=== PATIENT | female | born 1990 | race Caucasian/White ===

== ENCOUNTER → 2018-11-08 10:00 | Outpatient (CLI) | payer OTHER, SELFPAY | PROVIDERS: Visit Provider Physician Assistant | DX: J02.9 Acute pharyngitis, unspecified (principal) | CPT/HCPCS: 87070 ==

== ENCOUNTER → 2019-01-19 16:40 | Outpatient (REF) | payer OTHER, SELFPAY | LOC: LAB 16:40 | PROVIDERS: Visit Provider Internal Medicine | DX: J02.9 Acute pharyngitis, unspecified (principal) | CPT/HCPCS: 87070 ==

== ENCOUNTER 2019-04-02 08:33 | Day surgery (SDC) | payer OTHER, SELFPAY ==
[2019-03-24 12:52] VITALS: BMI 26.1
[2019-04-02] VITALS (9 sets, daily range): BP systolic 102–125; BP diastolic 73–82; PULSE 62–116; RESP 10–23; TEMP 36.8–37.2; O2SAT 94–100; BMI 26.1
[2019-04-02] MEDS: LACTATED RINGERS 1,000 ML 100 ML IV ×2 (09:07→10:40)
--- NOTE | 2019-04-02 09:50 | PM.HP.1 ---
History of Present Illness Date Patient Seen: 04/02/19 Time Patient Seen: 09:52 Chief complaint: [id number] Narrative: Patient is a 28-year-old who presents for a diagnostic laparoscopy secondary to postcoital bleeding, dyspareunia, and menorrhagia There is also possibility of fulguration of endometriosis Patient History Medical History (Updated 03/24/19 @ 12:59 by Tamanna Gonzalez RN) Dyspareunia (Acute) Migraines (Acute) Surgical History (Updated 03/24/19 @ 12:57 by Tamanna Gonzalez RN) History of third molar tooth extraction (~2005) Status post tonsillectomy and adenoidectomy (~2006) Social History household members: spouse Smoking Status: Never smoker alcohol intake: current Family & Social History Social History: household members spouse Prior Living Arrangements House Safety & Behavioral: Feels Safe in Current Yes Environment Been Physically Hurt or No Threatened By a Person Suicidal Ideation Description None Suicide Plan Description No Plan Tobacco & Substance use: Smoking Status Never smoker alcohol intake current alcohol intake frequency a few times a month Substance Use Type does not use Meds Home Medications Medication Instructions Recorded Confirmed Type norethindrone acetate-ethinyl 1 tab PO DAILY 03/10/19 04/02/19 History estradiol 1.5 mg-30 mcg tablet Allergies Allergy/AdvReac Type Severity Reaction Status Date / Time hydromorphone [From Dilaudid] Allergy Severe Itching, Verified 04/02/19 09:14 LOC, nausea codeine Allergy Unknown Pt unsure Verified 04/02/19 09:14 if true allergy hydrocodone Allergy Unknown Pt unsure Verified 04/02/19 09:14 of reaction Exam Vital Signs (past 8 hours): - 04/02/19 09:03 Temperature 99.0 F Pulse Rate 84 Respiratory Rate 16 Blood Pressure 119/79 Pulse Oximetry 100 Oxygen Delivery Method Room Air Narrative Exam Narrative: HEENT: No thyromegaly, no anterior cervical or supraclavicular lymphadenopathy. Lungs:Clear to auscultation bilaterally, no wheezes. Cardiovascular: Regular rate and rhythm, no murmurs, rubs, or gallops. Abdomen: No scars. No hepatosplenomegaly. No masses palpable. External genitalia: Normal Vagina: Normal Cervix: Normal Bimanual exam: 6 Week size uterus. Mobile. Rectal: No masses. Assessment & Plan Assessment & Plan narrative: Assessment: Patient is a 28-year-old with postcoital bleeding, menorrhagia, and dyspareunia Plan: Diagnostic laparoscopy with possible fulguration of endometriosis The risks, benefits, and alternatives to the procedure were explained to the patient. The risks including bleeding, infection, injury to the bowel, bladder, or ureters. She understands these risks and agrees to proceed. A full par Q was held and consent form was signed. Time Spent With Patient Time with patient: less than 15 minutes
--- NOTE | 2019-04-02 09:54 | PM.PREOP ---
Pre-operative Note Interval Note History & Physical reviewed/Exam performed by Physician: Yes Changes to H&P: No
[2019-04-02] MEDS: SCOPOLAMINE 1 PATCH TOP (09:57)
[2019-04-02] MEDS: APREPITANT 40 MG CAPSULE PO (09:57)
[2019-04-02] MEDS: ACETAMINOPHEN IV 1,000 MG/100 ML VIAL 400 MG IV (10:33)
--- NOTE | 2019-04-02 10:33 | SUR.OPER ---
Lithotomy on padded OR bed, head on pillow, arms secured on padded arm boards at <90 degrees abduction. Legs secured in padded yellow fins stirrups.
[2019-04-02] MEDS: BUPIVACAINE 0.5% W/ EPI (PF) VIAL 30 ML INJ (10:39)
[2019-04-02] MEDS: MIDAZOLAM 2 MG/2 ML VIAL 1 MG IV (11:23)
--- NOTE | 2019-04-02 11:25 | SUR.PHASEI ---
Pt tearful and sobbing as she awoke from anesthesia. Pt was very anxious and difficult to console. MD Smith at bedside; 1 mg IV versed given per MD Smith's order. Bedside report given to LAQUITA Zamudio. Lizz to assume care of pt at this time.
[2019-04-02] MEDS: fentaNYL 100 MCG/2 ML INJ 50 MCG IV ×2 (11:33→12:00)
--- NOTE | 2019-04-02 11:37 | SUR.PHASEI ---
1125 Assumed patient care, patient crying, Dr. Smith talking with her, has medicated for anxiety and nausea. Abdominal dressings and per-pad CDI, Pt oriented 1133 Desired pain med: given, doesn't give number for pain. States that she is feeling calmer; intermittent tears.
[2019-04-02] MEDS: METOCLOPRAMIDE 10 MG/2 ML INJ IV (11:51)
--- NOTE | 2019-04-02 11:59 | SUR.PHASEI ---
Was dozing, states that her abdomen hurts, desires Rx, no number given.
--- NOTE | 2019-04-02 12:03 | SUR.PHASEI ---
Medicated for pain, drowsy, doesn't give number. States that nausea isn't gone but is resolving. dr. Smith here, checked on patient. resp unlabored, was put on O2 after first fentanyl dose at 3Lnp for desat into the 80s; now at 1Lnp and maintaining. Skin warm and dry, dozing, no longer crying.
[2019-04-02] MEDS: OXYCODONE/ACETAMINOPHEN 5/325 TABLET 1 TAB PO (12:20)
--- NOTE | 2019-04-02 12:23 | SUR.PHASEI ---
patient calm, nausea relieved, Rx given for PO rx following applesause. Preparing to transfer to [facility].
--- NOTE | 2019-04-12 06:20 | PM.GYNOP.1 ---
Operative Date/Time/Diagnoses Date of procedure: 04/02/19 Time of procedure: 10:45 Pre-op diagnosis: Postcoital bleeding Dyspareunia Menorrhagia Post-op diagnosis: same Procedure: Procedures Operation Date: 04/02/19 09:45 Actual Procedures Side Surgeon coby Elliott Laparoscopy WITH fulguration of LEFT PARAOVARIAN CYST Left Lisseth Tian MD Indications: Postcoital bleeding Menorrhagia Dyspareunia Surgeon: Lisseth Tian Anesthesia Type: General Operative Notes Findings: Normal uterus Normal ovaries 1.5 cm left para tubal cyst Normal liver and gallbladder Normal appendix Normal right tube Closure Type: primary Specimen(s): none Estimated blood loss (mL): 5 Blood products transfused: none Procedure in detail: After informed consent was obtained, the patient was taken to the operating room where she was placed in the dorsal supine position. After adequate general endotracheal anesthesia was achieved, she was placed in the dorsal lithotomy position, and prepped and draped in the usual sterile fashion. A time-out was performed. A bivalve speculum was placed into the vagina and the anterior lip of the cervix grasped with a single-tooth tenaculum. The cervical os was sequentially dilated until the Zumi uterine manipulator could pass easily into the endometrial cavity. The single-tooth tenaculum was removed from the anterior lip of the cervix. The bivalve speculum was removed from the vagina. Attention was then turned to the abdomen where 6 cc of 0.5% Marcaine with epinephrine were injected in the umbilical fold. A 5 mm incision was made. The Veress needle was placed into the peritoneal cavity, and its placement confirmed by aspiration and drop test. The abdominal cavity was insufflated with 3.1 L of CO2. The Veress needle was removed, and a 5 mm trocar was placed without difficulty. A 2nd incision was made above the pubic symphysis after 6 cc of 0.5% Marcaine with epinephrine were injected. A 5 mm incision was made. A 2nd 5 mm trocar was placed under direct visualization. Bilateral ovarian fossa were examined and there was no evidence of endometriosis. The anterior and posterior cul-de-sacs were without endometriosis. The ovaries were normal. The liver gallbladder and appendix were normal. The right tube was normal. On the left tube hanging from a pedicle, was a 1.5 cm paratubal cyst. This was cauterized with the PlasmaKinetic and removed. No evidence of endometriosis anywhere in the pelvis or abdomen. The instruments were removed from the abdomen. The CO2 was allowed to escape. The incisions were repaired with 4 0 undyed Vicryl in a subcuticular fashion. Steri-Strips, 2 x 2, and op site were placed. The Zumi uterine manipulator was removed from the uterus. Sponge, lap, and instrument counts were correct x2. The patient tolerated the procedure well, and was taken to PACU in stable condition. Complications: none Post-operative Condition: stable Disposition: PACU Plan for aftercare: Home after recovery
== END 2019-04-02 13:08 | disposition home or self-care (01) ==
PROVIDERS: PCP Internal Medicine; Visit Provider Obstetrics & Gynecology
PROC: (CPT 49320; principal; 2019-04-02 09:45)
DX: N92.0 Excessive and frequent menstruation with regular cycle (principal); N94.10 Unspecified dyspareunia; N93.0 Postcoital and contact bleeding; N83.8 Other noninflammatory disorders of ovary, fallopian tube and broad ligament
CPT/HCPCS: 58662; J0131; J1100; J2250; J2405; J2704; J2765; J3010; J8501

== ENCOUNTER → 2019-06-24 12:07 | Outpatient (CLI) | payer OTHER, SELFPAY ==
--- NOTE | 2019-06-24 | DI.RAD.S_ITS ---
PROCEDURE: XR KNEE RT 3V INDICATIONS: right knee pain TECHNIQUE: 3 views of the knee were acquired. COMPARISON: [facility], , KNEE 3V RIGHT, 07/29/2008, 12:56. FINDINGS: Bones: No fractures or dislocations. No suspicious bony lesions. The femorotibial joint spaces are relatively well-preserved. On the sunrise view, there is mild to moderate patellofemoral joint space narrowing seen. Osteophyte formation can be seen along the margins of the patella. Soft tissues: No significant joint effusion. No suspicious soft tissue calcifications. IMPRESSION: [id number] patellofemoral joint space narrowing is seen. If it would be helpful for clinical management decision making, please consider a dedicated knee MRI for further evaluation (assuming that there is no contraindication). Dictated by: Michael Carrizales M.D. on 06/24/2019 at 12:56 Approved by: Michael Carrizales M.D. on 06/24/2019 at 12:57
== END ==
PROVIDERS: PCP Student in an Organized Health Care Education/Training Program; Visit Provider Student in an Organized Health Care Education/Training Program
DX: M25.561 Pain in right knee (principal)
CPT/HCPCS: 73562

== ENCOUNTER → 2019-09-21 16:50 | Outpatient (CLI) | payer OTHER, SELFPAY | PROVIDERS: PCP Student in an Organized Health Care Education/Training Program; Visit Provider Student in an Organized Health Care Education/Training Program | DX: S89.91XD Unspecified injury of right lower leg, subsequent encounter (principal); M25.561 Pain in right knee; Z53.9 Procedure and treatment not carried out, unspecified reason ==

== ENCOUNTER → 2019-09-27 10:47 | Outpatient (CLI) | payer OTHER, SELFPAY ==
--- NOTE | 2019-09-27 | DI.US.S_ITS ---
PROCEDURE: US PELVIC COMPLETE INDICATIONS: RIGHT LOWER QUADRANT PAIN TECHNIQUE: Real-time scanning was performed of the pelvic organs, with image documentation. Additional endovaginal scanning was necessary due to incomplete visualization of the adnexal and endometrial structures by transabdominal scanning. COMPARISON: [facility], US, US PELVIC COMPLETE, 03/10/2019, 8:48. FINDINGS: Transabdominal scanning: Limited scanning through the kidneys shows no hydronephrosis. No pathologic free abdominal or pelvic fluid. Anteverted anteflexed uterus. Right inguinal region was scanned which corresponds to patient's area of pain. There is a prominent lymph node with a slightly thickened cortex. The node measures 2.3 cm and the cortex is 4 mm thick. Normal morphology is otherwise maintained including a fatty hilum. The appendix is not visible. Endovaginal scanning: Uterus: Uterus is normal in size at 8.8 x 3.8 x 4.5 cm. The endometrium measures 1.3 mm in combined thickness. Punctate coarse focus of echogenicity in the fundal endometrium measuring 1.8 mm. Ovaries: Right ovary measures 3.0 x 1.4 x 1.6 cm for a volume of 3.5 cc. The left ovary measures 2.8 x 1.6 x 1.7 cm for a volume of 4.0 cc. Normal number of small follicles identified. No suspicious adnexal masses. No free pelvic fluid. IMPRESSION: 1. Right inguinal adenitis corresponding to the patient's pelvic pain. Correlate with any distal extremity findings. 2. Normal uterus and ovaries. Dictated by: Rachel Montoya M.D. on 09/27/2019 at 15:06 Approved by: Rachel Montoya M.D. on 09/27/2019 at 15:10
== END ==
PROVIDERS: PCP Student in an Organized Health Care Education/Training Program; Visit Provider Student in an Organized Health Care Education/Training Program
DX: R10.31 Right lower quadrant pain (principal); R10.2 Pelvic and perineal pain; I88.9 Nonspecific lymphadenitis, unspecified
CPT/HCPCS: 76830; 76856

== ENCOUNTER → 2019-11-05 17:45 | Outpatient (CLI) | payer OTHER, SELFPAY ==
--- NOTE | 2019-11-05 17:46 | DI.MRI.S_ITS ---
PROCEDURE: MR KNEE RT WO CON INDICATIONS: PAIN IN RIGHT KNEE TECHNIQUE: Noncontrast sagittal PD fast spin echo and T2 fast spin echo with fat saturation, sagittal 3-D FLASH with fat saturation; coronal T1 spin echo and PD fast spin echo with fat saturation, and axial PD fast spin echo with fat saturation through the knee. COMPARISON: None. FINDINGS: Image quality: Excellent. Menisci: The medial and lateral menisci demonstrate normal morphology and internal signal. The meniscal root ligaments appear intact. Cruciate ligaments: There is mildly thickened proximal anterior cruciate ligament near its femoral insertion with small amount of intrasubstance fluid signal suggestive of sprain/low-grade partial-thickness tear involving proximal ACL. PCL is intact. Medial structures: The medial collateral ligament appears intact. The posterior oblique ligament, semimembranosus tendon insertions, oblique popliteal ligament, and meniscocapsular junction appear intact. Visualized portions of the pes anserinus tendons appear normal. No abnormal bursal fluid. Lateral structures: The lateral collateral ligament, long and short heads of the biceps femoris tendon appear intact. The popliteus tendon appears normal; the popliteofibular ligament appears intact. The posterosuperior and anteroinferior popliteomeniscal fascicles appear intact. The arcuate and fabellofibular ligaments appear intact, on either side of the lateral inferior geniculate artery. Iliotibial band appears normal. Anterior structures: The quadriceps and patellar tendons appear intact. Patellar alignment is normal. No femoral trochlear dysplasia or ventral trochlear prominence. No edema in the infrapatellar fat pad. Bones and cartilage: No bone marrow contusions or fractures. The cartilage of the medial and lateral femorotibial compartments, as well as the patellofemoral compartment, appears normal in thickness. Joint space: There is physiologic knee joint fluid. No Gaming's cyst. Normal appearing synovial plicae are incidentally noted. IMPRESSION: 1. No marrow edema. No fracture or dislocation. No significant joint effusion. 2. No evidence of focal meniscal tear. 3. Finding may represent very low grade sprain/partial thickness tear involving anterior cruciate ligament near its femoral insertion. No full-thickness ACL rupture. PCL is intact. Dictated by: Jose Nielson M.D. on 11/08/2019 at 10:00 Approved by: Jose Nielson M.D. on 11/08/2019 at 10:07
== END ==
PROVIDERS: PCP Student in an Organized Health Care Education/Training Program; Referring Provider Student in an Organized Health Care Education/Training Program; Visit Provider Student in an Organized Health Care Education/Training Program
DX: M25.561 Pain in right knee (principal)
CPT/HCPCS: 73721

== ENCOUNTER 2019-11-18 16:45 | Outpatient (RCR) | payer OTHER, SELFPAY ==
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
--- NOTE | 2019-11-18 19:14 | PT.OPPOC ---
Physical, Occupational & Speech Therapy At [facility] Current Diagnoses Unspecified injury of right lower leg, subsequent encounter (11/18/19) Visit Care Team Role Provider Type Susana Bejarano MD Attending Provider Physician Primary Care Provider Specialty: Family Practice Address: [address] [place] [address] [place], [address] Email: [email or web address] Plan Of Care PT-OP-T Assessment and Plan Start: 09/22/19 15:57 Freq: Status: Active Protocol: Document 11/18/19 16:50 HH (Rec: 11/18/19 19:12 HH [id number]) Physical Therapy Assessment Goals Anterior reach test Impairment Pt currently demonstrates inc' d knee strategy with SLS Short Term Goal (STG) Pt will demonstrate <2 asymmetry during ant reach test to reduce risk of reinjury STG Duration 4 weeks Press Tool Maker Goal (LTG) Pt will demonstrate <1 asymmetry without dynamic knee valgus during ant reach test to reduce risk of reinjury LTG Duration 8 weeks Walking Impairment Pt no longer able to walk/jog 7 miles/day for exercise Short Term Goal (STG) Pt will be able to ambulate >1 mile at brisk pace without inc'd knee pain STG Duration 4 weeks Penitentiary Goal (LTG) Pt will be able to ambulate >3 miles at brisk pace without inc'd knee pain LTG Duration 8 weeks Standing Impairment Pt reports pain/weakness when standing at work Short Term Goal (STG) Pt will be able to stand >30 min without inc'd knee pain and sense of instability STG Duration 4 weeks Penitentiary Goal (LTG) Pt will be able to stand >1 hr without inc'd knee pain and sense of instability LTG Duration 8 weeks LEFS Impairment Pt scored 36/80 on LEFS Short Term Goal (STG) Pt will score >45/80 on LEFS to reflect improved tolerance for functional activities STG Duration 4 weeks Press Tool Maker Goal (LTG) Pt will score >55/80 on LEFS to reflect improved tolerance for functional activities LTG Duration 8 weeks Progress Towards Goals Progress Towards Goals Slow Progress due to Attendance Issues,Slow Progress - Other Progress Comments see below Assessment Summary Assessment Pt has not progressed much since initial evaluation due to scheduling issues. Pt had a MRI on 11/05/19 showed 1. No marrow edema. No fracture or dislocation. No significant joint effusion. 2. No evidence of focal meniscal tear. 3. Finding may represent very low grade sprain/partial thickness tear involving anterior cruciate ligament near its femoral insertion. No full- thickness ACL rupture. PCL is intact. Reassess ACL integrity today and showed -ve findings. Spent time to dis with pt regarding pain science and her unremarkable MRI result. She does have tissue sensitivity to touch/ pressure to quad and patella tendon, along with difficulty relaxing muscular tissues around her knee joint. However, her quad /hip adductors tenderness reduced after STM with rolling pin, and patellar tendon pain as well. Introduce pt to non resistive biking to expose active knee flexion and extension. Pt will cont benefit from skilled therapy for graded exposure in order to return to her daily sports activities such as walking / jogging 7 miles a day and work without knee pain. Physical Therapy Plan Frequency and Duration Frequency of Treatment 1x/Week Duration of Treatment 8 weeks Plan of Care Start Date 11/18/19 Plan of Care End Date 01/17/20 Therapeutic Interventions Therapeutic Interventions Balance Training,Gait Training ,Home Exercise Program,Joint Mobilizations,Manual Therapy, Neuromuscular Re-education, Patient/Caregiver Education, Self-Care/Home Management, Sensory Integration,Soft Tissue Mobilization,Taping, Therapeutic Activities, Therapeutic Exercises Modalities Cold Pack/Ice Massage,Electric Stimulation,Hot Packs, Infrared Therapy,Iontophoresis ,Ultrasound Next Visit Focus/Plan Next Note Type Treatment Note Next Visit Plan assess tolerance for HEP ( rolling pin, biking) MT for knee effusion LE strengthening (gravity reduced) SL balance/strengthening Treadmill ambulation Plan of Care Dates Plan of Care Start Date 11/18/19 Plan of Care End Date 01/17/20 Electronically Signed by: Curtis Mcdowell, PT 11/18/19 2840 Please Sign and Return: I have reviewed this Plan of Care and certify that the skilled therapy services above are required to meet the patient?s needs. Physician Signature Date Printed Name and Credentials Clinical Instructor Signature Printed Name and Credentials
--- NOTE | 2020-04-20 14:18 | PT.OPDS ---
Current Diagnoses Unspecified injury of right lower leg, subsequent encounter (11/18/19) Visit Care Team Role Provider Type Susana Bejarano MD Attending Provider Physician Primary Care Provider Specialty: Family Practice Address: [address] [place] [address], [place], [place], [facility] Email: [email or web address] Visit Number Visit Number 01/15 Discharge Summary PT-OP-T Assessment and Plan Start: 09/22/19 15:57 Freq: Status: Active Protocol: Document 04/20/20 14:16 (Rec: 04/20/20 14:17 [email or web address]) Physical Therapy Plan Discharge Physical Therapy Discharge Reasons No Longer Attending PT Discharge Comments d/c from therapy today since pt is being seen at ortho PT clinic as suggested,
== END 2020-04-21 12:58 ==
LOC: PHYS 16:45
PROVIDERS: PCP Student in an Organized Health Care Education/Training Program; Visit Provider Student in an Organized Health Care Education/Training Program
DX: S89.91XD Unspecified injury of right lower leg, subsequent encounter (principal)
CPT/HCPCS: 97110; 97140; 97161

== ENCOUNTER → 2019-11-25 13:52 | Outpatient (CLI) | payer OTHER, SELFPAY | PROVIDERS: PCP Student in an Organized Health Care Education/Training Program; Visit Provider Physician Assistant | DX: Z11.3 Encounter for screening for infections with a predominantly sexual mode of transmission (principal) | CPT/HCPCS: 87210 ==

== ENCOUNTER 2020-06-24 19:48 | Emergency (ER) | payer OTHER, SELFPAY ==
[2020-06-24 19:56] VITALS: BP 153/87; PULSE 77; RESP 17; TEMP 36.9; O2SAT 100; BMI 24.9
[2020-06-24 23:24] VITALS: BP 108/59; PULSE 60; RESP 16; O2SAT 96
--- NOTE | 2020-06-25 00:14 | DI.CT.S_ITS ---
PROCEDURE: CT HEAD/BRAIN WO CON INDICATIONS: head injury TECHNIQUE: Noncontrast 4.5 mm thick angled axial sections acquired from the foramen magnum to the vertex, with coronal and sagittal reformats. For radiation dose reduction, the following was used: automated exposure control, adjustment of mA and/or kV according to patient size. COMPARISON: None. FINDINGS: Image quality: Excellent. CSF spaces: Basal cisterns are patent. No extra-axial fluid collections. Ventricles are normal in size and shape. Brain: No midline shift. No intracranial masses or hemorrhage. Garay-white matter interface is normal. Skull and face: Calvarium and visualized facial bones are intact, without suspicious lesions. Sinuses: Visualized sinuses and mastoids are clear. IMPRESSION: No acute intracranial hemorrhage is seen. Normal noncontrast head CT. Note: No significant discrepancy from the preliminary report. Dictated by: Michael Carrizales M.D. on 06/25/2020 at 8:43 Approved by: Michael Carrizales M.D. on 06/25/2020 at 8:44
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
[2020-06-25] MEDS: KETOROLAC 10 MG TABLET PO (00:52)
[2020-06-25] MEDS: ONDANSETRON 4 MG ODT SL (00:53)
[2020-06-25 01:05] VITALS: BP 114/65; PULSE 85; RESP 16; O2SAT 100
== END 2020-06-25 01:05 | disposition home or self-care (01) ==
PROVIDERS: Emergency Provider Emergency Medicine; PCP Student in an Organized Health Care Education/Training Program
DX: S06.0X0A Concussion without loss of consciousness, initial encounter (principal); R11.2 Nausea with vomiting, unspecified; W22.8XXA Striking against or struck by other objects, initial encounter
CPT/HCPCS: 70450; 81025; 99283; 99284

== ENCOUNTER 2020-06-27 09:45 | Outpatient (RCR) | payer OTHER, SELFPAY ==
--- NOTE | 2019-05-27 14:24 | PT.OIE ---
Current Diagnoses Unspecified dyspareunia (05/26/19) Pelvic and perineal pain (05/26/19) Past Medical History (Last Updated 03/24/19 @ 12:59 by Tamanna Gonzalez RN) Dyspareunia (Acute) Migraines (Acute) Past Surgical History (Last Updated 04/12/19 @ 15:26 by Mary Omer MA) Status post laparoscopy (Resolved 04/02/19) History of third molar tooth extraction (~2005) Status post tonsillectomy and adenoidectomy (~2006) Provider Visit Care Team Role Provider Type Susana Bejarano MD Primary Care Provider Non-Staff Specialty: Family Practice Address: [address] [place] [address], [id number] Email: [email or web address] Lisseth Tian MD Attending Provider Physician Specialty: REPORT DEVELOPER Address: [address] [place] [address], [address] Email: [email or web address] Physical Therapy Initial Evaluation PT-OP-A Visit Information Start: 05/26/19 14:41 Freq: Status: Active Protocol: Document 05/26/19 14:41 [facility] (Rec: 05/26/19 15:12 [facility] [email or web address]) Out-Patient Physical Therapy Visit Information Visit Information Visit Type Initial Evaluation Visit Note 28 year old female with pelvic pain, dysparunia, pelvic floor hypertone, pain and bleeding following intercourse Visit Start Time 11:30 Visit Stop Time 12:15 Total Visit Minutes 45 Visit Number 1 Number of CHIEF PILOT Visits 0 Evaluation Information Evaluation Date 05/26/19 PT-OP-B Current Condition Start: 05/26/19 14:41 Freq: Status: Active Protocol: Document 05/26/19 14:41 [facility] (Rec: 05/26/19 15:12 [facility] [email or web address]) Current Condition History of Current Condition Onset Date chronic but worsening Current Complaints pelvic pain and bleeding following intercourse,bleeding with bowel movement History of Current Condition symptoms began when she became sexually active but have worsened with time. Marie reports she was put on the pill when she was 12 as she had such painful periods and painful breasts. She has a hx of ovarian cysts. She does not currently menstruate as she takes the pill straight through her cycle to avoid a painful period. Her pelvic pain has been worsening and she reports a deep internal pain that she describes as centrally located in her pelvic floor. She reports she will bleed heavily following intercourse. She can soak through two tampons in a hour following intercourse. She also reports bleeding following a bowel movements and has hemorrhoids. She has had an exploratory surgery done by Dr. Tian and no endometriosis was found. She has undergone a colonoscopy and this was normal She has a defogram test next week PT-OP-C Subjective Start: 05/26/19 14:41 Freq: Status: Active Protocol: Document 05/26/19 11:30 [facility] (Rec: 05/27/19 14:10 [facility] [email or web address]) Patient Questionnaires Pelvic Pain and Urgency/Frequency Patient Symptom Scale Pelvic Pain Score 19 OP-PT Pain Assessment Pain Assessment Grid Paper Pain Assessment Grid Completed Yes Location pelvic pain Intensity 9 Scale Used Numeric (1 - 10) Description Acute Pressure Sharp Spasm Stabbing Tightness Pain Duration with intercourse, can vary from 4-9 PT-OP-F Manual Assessment Start: 05/26/19 14:41 Freq: Status: Active Protocol: Document 05/26/19 14:41 [facility] (Rec: 05/26/19 15:12 [facility] [email or web address]) Manual Assessments Soft Tissue Assessment Soft Tissue Mobility Assessment tightness left side of the abdominal wall, Marie does not like the sensation of any manual movement of her abdominal wall or fascial movement over the bladder. She reports it has always felt sensitive in her abdomen. There is tightness across her bladder in the suprapubic fascia. Tightness of the levator ani and difficulty relaxing her pelvic floor following a contraction PT-OP-I Pelvic Floor Start: 05/26/19 14:41 Freq: Status: Active Protocol: Document 05/26/19 14:41 [facility] (Rec: 05/26/19 15:12 [facility] [email or web address]) Pelvic Floor Assessment Urine Pelvic Floor Surgery No Urinary Symptoms Urge Sensation Other Urinary Symptoms frequency of voiding and wakes 1-2 times per night Pelvic Clock Pelvic Clock 12-3 Hypertonic Pelvic Clock 3-6 Hypertonic Pelvic Clock 6-9 Hypertonic Pelvic Clock 9-12 Hypertonic Contraction Ability Manual Muscle Testing Left 4 Manual Muscle Testing Right 4 Manual Muscle Testing Anterior 3 Manual Muscle Testing Posterior 4 Muscle Endurance (Seconds) 3 Comments Pelvic Floor Comments very guarded and hypertonic in all parts of the levator ani. She is only able to hold a contraction for a few seconds and it flickers as she tries to hold it. No more than 3 seconds of endurance. There is pain to palpation in all parts of the levator ani with muscle guarding and hypertone PT-OP-J Posture/Palpation/Skin Start: 05/26/19 14:41 Freq: Status: Active Protocol: Document 05/27/19 13:58 [facility] (Rec: 05/27/19 13:59 [facility] [email or web address]) Palpation Assessment Location Two Palpation Location levator ani Palpation Findings Soft Tissue Tightness Muscle Guarding Tenderness One Palpation Location left side of abdominal wall, supra pubic fascia Palpation Findings Soft Tissue Tightness Muscle Guarding Tenderness PT-OP-Q Treatments Start: 05/26/19 14:41 Freq: Status: Active Protocol: Document 05/26/19 14:41 [facility] (Rec: 05/26/19 15:12 [facility] [email or web address]) Self-Care/Home Management Treatment Education Patient Education Home Exercise Program Other Education pt was educated in ILU self massage over her abdomen, she was given a modified squat stretch and we talked about sitting with her sitting bones spread. I also talked to her about being aware if she is guarding and clenching her glutes during the day. PT-OP-T Assessment and Plan Start: 05/26/19 14:41 Freq: Status: Active Protocol: Document 05/26/19 14:41 [facility] (Rec: 05/26/19 15:12 [facility] [email or web address]) Physical Therapy Assessment Rehab Potential Rehabilitation Potential Good Evaluation Complexity Number of Personal Factors/Comorbidities 0 Number of Body Systems Impaired 1-2 Clinical Presentation at Evaluation Stable Impairments Impairments Activity Tolerance Pain Soft Tissue Mobility Strength Tone Other Impairments pain with intercourse and bleeding following intercourse Goals Five Impairment Urinary urgency with nocturia 1-2 xms per night Retirement Goal (LTG) Marie reports decreased c/o urinary urgency and is only waking 1 time or less at night to void LTG Duration 8 weeks Four Impairment myofascial restrictions and sensitivity to touch over the abdominal fascia Carpet Measurer Goal (LTG) Marie is able to perform self massage over her abdominal wall to help improve fascial mobility, decrease urgency, and improve bowel movements Three Impairment Decreased endurance of the pelvic floor < 3 sec hold time Short Term Goal (STG) Marie is able to sustain a pelvic floor contraction without pain x 5 seconds STG Duration 4 weeks Carpet Measurer Goal (LTG) Marie is able to sustain a pelvic floor contraction without pain for 10 or more seconds LTG Duration 8 weeks Two Impairment Muscle guarding and spasm of the levator ani all parts of the pelvic clock Short Term Goal (STG) Marie is able to begin working on a home stretching program for pelvic pain and is aware of when she is clenching her pelvic floor at rest STG Duration 3-4 weeks Carpet Measurer Goal (LTG) Marie is able to relax her pelvic floor to 2 uv or less on EMG biofeedback LTG Duration 8 weeks One Impairment pelvic pain ranging from 4-9 with intercourse Retirement Goal (LTG) With a PT program for relaxed awareness of the pelvic floor Marie reports a overall decrease in pelvic pain with intercourse LTG Duration 8 weeks Assessment Summary Assessment Marie presents to physical therapy today with symptoms of pelvic floor dysfunction and dyspareunia. She also describes frequent urgency to void. She describes heavy bleeding following intercourse and rectal bleeding with bowel movements. She states she can go through 2 tampons in a hour following intercourse. Marie reports the work up she has had done due to the bleeding and per her report nothing has been found that is the cause. She does have a defogram scheduled for next week. But work up has included exploratory surgery to rule out endometreosis and colonoscopy both of which have been normal . She has a history of hemorrhoids and ovarian cysts and has been on a control pill since her early teens due to painful and heavy periods. With examination today Marie is very guarded and hypertonic in all parts of the levator ani. She has a strong contraction but is not able to relax following the contraction and is very shakey with her endurance. She is not able to sustain a contraction greater than 3 seconds. She also has a great deal of hypersensitivity to touch over her abdomen. She has myofascial tightness Left> Right sides of her abdominal wall and suprapubic region. She notes having to take stool softeners for her bowel movements. She reports she has always felt icky with abdominal wall exams or doesn't t like to touch her own abdomen as it doesn't feel good. I started her today with gentle desensitizing over her abdomen and gentle stretches for her pelvic floor as well as teaching Marie the anatomy of her pelvic floor and how tightness and decreased ability to relax can impact intercourse. She tolerated treatment well today and we will progress to relaxed awareness of her pelvic floor using EMG biofeedback next visit. Treatment will focus on reducing the tension in the pelvic floor and improving tissue mobility over the abdominal wall to help decrease the urgency she feels to void. Physical Therapy Plan Frequency and Duration Frequency of Treatment 1x/Week Duration of Treatment 8 Plan of Care Start Date 05/26/19 Plan of Care End Date 07/21/19 Therapeutic Interventions Therapeutic Interventions Home Exercise Program Manual Therapy Neuromuscular Re-education Patient/Caregiver Education Self-Care/Home Management Soft Tissue Mobilization Therapeutic Exercises Modalities Biofeedback Next Visit Focus/Plan Next Note Type Treatment Note Next Visit Plan Begin EMG biofeedback for down training of the pelvic floor next visit and progress HEP of pelvic stretches
--- NOTE | 2019-05-27 14:26 | PT.OPPOC ---
Current Diagnoses Unspecified dyspareunia (05/26/19) Pelvic and perineal pain (05/26/19) Provider Visit Care Team Role Provider Type Susana Bejarano MD Primary Care Provider Non-Staff Specialty: Family Practice Address: [address] [place] [address], [facility] [place], [address] Email: [email or web address] Lisseth Tian MD Attending Provider Physician Specialty: SHOULDER PAD MOLDER Address: [address] [place] [address], [address] Email: [email or web address] Plan Of Care PT-OP-T Assessment and Plan Start: 05/26/19 14:41 Freq: Status: Active Protocol: Document 05/26/19 14:41 [facility] (Rec: 05/26/19 15:12 [facility] [email or web address]) Physical Therapy Assessment Rehab Potential Rehabilitation Potential Good Evaluation Complexity Number of Personal Factors/Comorbidities 0 Number of Body Systems Impaired 1-2 Clinical Presentation at Evaluation Stable Impairments Impairments Activity Tolerance Pain Soft Tissue Mobility Strength Tone Other Impairments pain with intercourse and bleeding following intercourse Goals Five Impairment Urinary urgency with nocturia 1-2 xms per night [facility] Goal (LTG) Marie reports decreased c/o urinary urgency and is only waking 1 time or less at night to void LTG Duration 8 weeks Four Impairment myofascial restrictions and sensitivity to touch over the abdominal fascia Facility Maintenance Manager Goal (LTG) Marie is able to perform self massage over her abdominal wall to help improve fascial mobility, decrease urgency, and improve bowel movements Three Impairment Decreased endurance of the pelvic floor < 3 sec hold time Short Term Goal (STG) Marie is able to sustain a pelvic floor contraction without pain x 5 seconds STG Duration 4 weeks Facility Maintenance Manager Goal (LTG) Marie is able to sustain a pelvic floor contraction without pain for 10 or more seconds LTG Duration 8 weeks Two Impairment Muscle guarding and spasm of the levator ani all parts of the pelvic clock Short Term Goal (STG) Marie is able to begin working on a home stretching program for pelvic pain and is aware of when she is clenching her pelvic floor at rest STG Duration 3-4 weeks [facility] Goal (LTG) Marie is able to relax her pelvic floor to 2 uv or less on EMG biofeedback LTG Duration 8 weeks One Impairment pelvic pain ranging from 4-9 with intercourse [facility] Goal (LTG) With a PT program for relaxed awareness of the pelvic floor Marie reports a overall decrease in pelvic pain with intercourse LTG Duration 8 weeks Assessment Summary Assessment Marie presents to physical therapy today with symptoms of pelvic floor dysfunction and dyspareunia. She also describes frequent urgency to void. She describes heavy bleeding following intercourse and rectal bleeding with bowel movements. She states she can go through 2 tampons in a hour following intercourse. Marie reports the work up she has had done due to the bleeding and per her report nothing has been found that is the cause. She does have a defogram scheduled for next week. But work up has included exploratory surgery to rule out endometreosis and colonoscopy both of which have been normal . She has a history of hemorrhoids and ovarian cysts and has been on a control pill since her early teens due to painful and heavy periods as well as for the ovarian cysts. With examination today aMrie is very guarded and hypertonic in all parts of the levator ani. She has a strong contraction but is not able to relax following the contraction and is very limited with her endurance. She is not able to sustain a contraction greater than 3 seconds. She also has a great deal of hypersensitivity to touch over her abdomen. She has myofascial tightness Left> Right sides of her abdominal wall and suprapubic region. She notes having to take stool softeners for her bowel movements. She reports she has always felt icky with abdominal wall exams or doesn't like to touch her own abdomen as it doesn't feel good. I started her today with gentle desensitizing over her abdomen and gentle stretches for her pelvic floor as well as teaching Marie the anatomy of her pelvic floor and how tightness and decreased ability to relax can impact intercourse. She tolerated treatment well today and we will progress to relaxed awareness of her pelvic floor using EMG biofeedback next visit. Treatment will focus on reducing the tension in the pelvic floor and improving tissue mobility over the abdominal wall to help decrease the urgency she feels to void. Physical Therapy Plan Frequency and Duration Frequency of Treatment 1x/Week Duration of Treatment 8 Plan of Care Start Date 05/26/19 Plan of Care End Date 07/21/19 Therapeutic Interventions Therapeutic Interventions Home Exercise Program Manual Therapy Neuromuscular Re-education Patient/Caregiver Education Self-Care/Home Management Soft Tissue Mobilization Therapeutic Exercises Modalities Biofeedback Next Visit Focus/Plan Next Note Type Treatment Note Next Visit Plan Begin EMG biofeedback for down training of the pelvic floor next visit and progress HEP of pelvic stretches Plan of Care Dates Plan of Care Start Date 05/26/19 Plan of Care End Date 07/21/19 Please Sign and Return: I have reviewed this Plan of Care and certify that the skilled therapy services above are required to meet the patient?s needs. Physician Signature Date Printed Name and Credentials Clinical Instructor Signature Printed Name and Credentials
--- NOTE | 2019-06-03 17:24 | PT.OTN ---
Current Diagnoses Unspecified dyspareunia (06/03/19) Pelvic and perineal pain (06/03/19) Physical Therapy Treatment Note PT-OP-A Visit Information Start: 05/26/19 14:41 Freq: Status: Active Protocol: Document 06/03/19 17:08 [facility] (Rec: 06/03/19 17:23 [facility] [email or web address]) Out-Patient Physical Therapy Visit Information Visit Information Visit Type Treatment Note Visit Start Time 16:00 Visit Stop Time 16:45 Total Visit Minutes 45 Visit Number 2 Number of [facility] Visits 0 Evaluation Information Evaluation Date 05/26/19 PT-OP-B Current Condition Start: 05/26/19 14:41 Freq: Status: Active Protocol: Document 05/26/19 14:41 [facility] (Rec: 05/26/19 15:12 [facility] [email or web address]) Current Condition History of Current Condition Onset Date chronic but worsening Current Complaints pelvic pain and bleeding following intercourse,bleeding with bowel movement History of Current Condition symptoms began when she became sexually active but have worsened with time. Marie reports she was put on the pill when she was 12 as she had such painful periods and painful breasts. She has a hx of ovarian cycts. She does not currently menstruate as she takes the pill straight through her cycle to avoid a painful period. Her pelvic pain has been worsening and she reports a deep internal pain that she describes as centrally located in her pelvic floor. She reports she will bleed heavily following intercourse. She can soak through two tampons in a hour following intercourse. She also reports bleeding following a bowel movements and has hemorrhoids. She has had an exploritory surgery done by Dr. Tian and no endometriosis was found. She has undergone a colonoscopy and this was normal She has a defogram test next week PT-OP-C Subjective Start: 05/26/19 14:41 Freq: Status: Active Protocol: Document 06/03/19 17:08 [facility] (Rec: 06/03/19 17:23 [facility] [email or web address]) OP-PT Subjective Patient Comments Patient Comments Marie reports she was suprised to find out how much she felt a stretch in her pelvic floor with the stretches. Also she has been having her do the ILU self massage. She had her defogram test which she said was horrible and she has one further test next week. PT-OP-F Manual Assessment Start: 05/26/19 14:41 Freq: Status: Active Protocol: Document 05/26/19 14:41 [facility] (Rec: 05/26/19 15:12 [facility] [email or web address]) Manual Assessments Soft Tissue Assessment Soft Tissue Mobility Assessment tightness left side of the abdominal wall, Marie does not like the sensation of any manual movement of her abdominal wall or fascial movement over the bladder. She reports it has always felt sensitive in her abdomen. There is tightness across her bladder in the subrapubic fascia. Tightness of the levator ani and difficulty relaxing her pelvic floor following a contraction PT-OP-I Pelvic Floor Start: 05/26/19 14:41 Freq: Status: Active Protocol: Document 05/26/19 14:41 [facility] (Rec: 05/26/19 15:12 [facility] [email or web address]) Pelvic Floor Assessment Urine Pelvic Floor Surgery No Urinary Symptoms Urge Sensation Other Urinary Symptoms frequency of voiding and wakes 1-2 times per night Pelvic Clock Pelvic Clock 12-3 Hypertonic Pelvic Clock 3-6 Hypertonic Pelvic Clock 6-9 Hypertonic Pelvic Clock 9-12 Hypertonic Contraction Ability Manual Muscle Testing Left 4 Manual Muscle Testing Right 4 Manual Muscle Testing Anterior 3 Manual Muscle Testing Posterior 4 Muscle Endurance (Seconds) 3 Comments Pelvic Floor Comments very guarded and hypertonic in all parts of the levator ani. She is only able to hold a contraction for a few seconds and it flickers as she tries to hold it. No more than 3 seconds of endurance. There is pain to palpation in all parts of the levator ani with muscle guarding and hypertone PT-OP-J Posture/Palpation/Skin Start: 05/26/19 14:41 Freq: Status: Active Protocol: Document 05/27/19 13:58 [facility] (Rec: 05/27/19 13:59 [facility] [email or web address]) Palpation Assessment Location Two Palpation Location levator ani Palpation Findings Soft Tissue Tightness,Muscle Guarding,Tenderness One Palpation Location left side of abdominal wall, supra pubic fascia Palpation Findings Soft Tissue Tightness,Muscle Guarding,Tenderness PT-OP-Q Treatments Start: 05/26/19 14:41 Freq: Status: Active Protocol: Document 06/03/19 17:08 [facility] (Rec: 06/03/19 17:23 [facility] [email or web address]) Therapeutic Exercises Supine Exercises 3 Supine Exercise Name roll outs with theraband Reps/Minutes 3 x 10 reps 2 Supine Exercise Name pelvic floor 5 second hold x 10 sec rest Reps/Minutes 5 reps 2 times per day 1 Supine Exercise Name supine stretches of dionisio pose, cobra, modified squat stretch Reps/Minutes 1-2 minutes each Other Exercises 2 Other Exercise Name quadraped TA facilitation Reps/Minutes contract and relax 1 Other Exercise Name quadraped cat cow Reps/Minutes x 10 Comments working on relaxing the belly with a inhale Neuro Re-Education Treatment Other Activities 2 Details contract/relax of the pelvic floor with biofeedback Comments education on finding the pelvic floor for contraction and then relaxing the pelvic floor with relaxation. Able to rest as low as a 2.7uv 1 Details pelvic floor neuromuscular relaxed awareness Comments used EMG biofeedback for relaxed awareness of the pelvic floor. Average resting tone at the beginning of treatemnt was 7.2 uv Self-Care/Home Management Treatment Education Patient Education Home Exercise Program Other Education gave 5 second hold time with 10 second pelvic floor relax time. x 5 reps 2 xms per day. I also gave her roll outs as this seemed to relax her pelvic floor. Her resting tone initially was at 7.2. With 5 second hold her average was 10.4 and max of 17.3 uv PT-OP-T Assessment and Plan Start: 05/26/19 14:41 Freq: Status: Active Protocol: Document 06/03/19 17:08 [facility] (Rec: 06/03/19 17:23 [facility] [email or web address]) Physical Therapy Assessment Assessment Summary Assessment Marie has been working on the stretches and abdominal massage. She was suprised at how tight she was. Today we added in contract/relax of the abdominal wall and added to stretches for pelvic pain. I began EMG biofeedback for her and neurore-education of both pelvci floor contraction and relaxation Physical Therapy Plan Frequency and Duration Frequency of Treatment 1x/Week Duration of Treatment 8 Plan of Care Start Date 05/26/19 Plan of Care End Date 07/21/19 Therapeutic Interventions Therapeutic Interventions Home Exercise Program,Manual Therapy,Neuromuscular Re- education,Patient/Caregiver Education,Self-Care/Home Management,Soft Tissue Mobilization,Therapeutic Exercises Modalities Biofeedback Next Visit Focus/Plan Next Note Type Treatment Note Next Visit Plan review stretches, EMG biofeedback, manual therapy techniques for pelvic floor relaxation
--- NOTE | 2019-06-08 17:27 | PT.OTN ---
Current Diagnoses Unspecified dyspareunia (06/08/19) Pelvic and perineal pain (06/08/19) Physical Therapy Treatment Note PT-OP-A Visit Information Start: 05/26/19 14:41 Freq: Status: Active Protocol: Document 06/08/19 17:21 [facility] (Rec: 06/08/19 17:27 [facility] [email or web address]) Out-Patient Physical Therapy Visit Information Visit Information Visit Type Treatment Note Visit Start Time 16:00 Visit Stop Time 16:45 Total Visit Minutes 45 Visit Number 3 Number of ROBOT PROGRAMMER Visits 0 PT-OP-B Current Condition Start: 05/26/19 14:41 Freq: Status: Active Protocol: Document 05/26/19 14:41 [facility] (Rec: 05/26/19 15:12 [facility] [email or web address]) Current Condition History of Current Condition Onset Date chronic but worsening Current Complaints pelvic pain and bleeding following intercourse,bleeding with bowel movement History of Current Condition symptoms began when she became sexually active but have worsened with time. Marie reports she was put on the pill when she was 12 as she had such painful periods and painful breasts. She has a hx of ovarian cycts. She does not currently menstruate as she takes the pill straight through her cycle to avoid a painful period. Her pelvic pain has been worsening and she reports a deep internal pain that she describes as centrally located in her pelvic floor. She reports she will bleed heavily following intercourse. She can soak through two tampons in a hour following intercourse. She also reports bleeding following a bowel movements and has hemorrhoids. She has had an exploritory surgery done by Dr. Tian and no endometriosis was found. She has undergone a colonoscopy and this was normal She has a defogram test next week PT-OP-C Subjective Start: 05/26/19 14:41 Freq: Status: Active Protocol: Document 06/08/19 17:21 [facility] (Rec: 06/08/19 17:27 [facility] [email or web address]) OP-PT Subjective Patient Comments Patient Comments Marie saw the colorectal surgeon last week and a rectal exam was done. She is very guarded in her rectum and the colorectal surgeon feels this is why she is having difficulty with bowel movements PT-OP-F Manual Assessment Start: 05/26/19 14:41 Freq: Status: Active Protocol: Document 05/26/19 14:41 [facility] (Rec: 05/26/19 15:12 [facility] [email or web address]) Manual Assessments Soft Tissue Assessment Soft Tissue Mobility Assessment tightness left side of the abdominal wall, Marie does not like the sensation of any manual movement of her abdominal wall or fascial movement over the bladder. She reports it has always felt sensitive in her abdomen. There is tightness across her bladder in the subrapubic fascia. Tightness of the levator ani and difficulty relaxing her pelvic floor following a contraction PT-OP-I Pelvic Floor Start: 05/26/19 14:41 Freq: Status: Active Protocol: Document 05/26/19 14:41 [facility] (Rec: 05/26/19 15:12 [facility] [email or web address]) Pelvic Floor Assessment Urine Pelvic Floor Surgery No Urinary Symptoms Urge Sensation Other Urinary Symptoms frequency of voiding and wakes 1-2 times per night Pelvic Clock Pelvic Clock 12-3 Hypertonic Pelvic Clock 3-6 Hypertonic Pelvic Clock 6-9 Hypertonic Pelvic Clock 9-12 Hypertonic Contraction Ability Manual Muscle Testing Left 4 Manual Muscle Testing Right 4 Manual Muscle Testing Anterior 3 Manual Muscle Testing Posterior 4 Muscle Endurance (Seconds) 3 Comments Pelvic Floor Comments very guarded and hypertonic in all parts of the levator ani. She is only able to hold a contraction for a few seconds and it flickers as she tries to hold it. No more than 3 seconds of endurance. There is pain to palpation in all parts of the levator ani with muscle guarding and hypertone PT-OP-J Posture/Palpation/Skin Start: 05/26/19 14:41 Freq: Status: Active Protocol: Document 05/27/19 13:58 [facility] (Rec: 05/27/19 13:59 [facility] [email or web address]) Palpation Assessment Location Two Palpation Location levator ani Palpation Findings Soft Tissue Tightness,Muscle Guarding,Tenderness One Palpation Location left side of abdominal wall, supra pubic fascia Palpation Findings Soft Tissue Tightness,Muscle Guarding,Tenderness PT-OP-Q Treatments Start: 05/26/19 14:41 Freq: Status: Active Protocol: Document 06/08/19 17:21 [facility] (Rec: 06/08/19 17:27 [facility] [email or web address]) Therapeutic Exercises Supine Exercises 3 Supine Exercise Name roll outs with theraband Reps/Minutes 3 x 10 reps 2 Supine Exercise Name pelvic floor 10 second hold 10 second relaxation Reps/Minutes x 10 reps 1 Supine Exercise Name supine stretches of dionisio pose, cobra, modified squat stretch Reps/Minutes 1-2 minutes each Other Exercises 5 Other Exercise Name full squat pelvic floor stretch 4 Other Exercise Name squats Reps/Minutes x 10 3 Other Exercise Name quadraped sidebend and thoracic rotation Reps/Minutes x 5 each 2 Other Exercise Name quadraped TA facilitation Reps/Minutes contract and relax 1 Other Exercise Name quadraped cat cow Reps/Minutes x 10 Comments working on relaxing the belly with a inhale Manual Therapy Treatment Soft Tissue Mobilization 2 Body Location external pelvic floor diaphragm MFR 1 Body Location ILU abdominal massage PT-OP-T Assessment and Plan Start: 05/26/19 14:41 Freq: Status: Active Protocol: Document 06/08/19 17:21 [facility] (Rec: 06/08/19 17:27 [facility] [email or web address]) Physical Therapy Assessment Assessment Summary Assessment resting tone dropped today to 3.0 uv initially. Average contraction was 7.3 and max of 23.2 Improved ability to relax her abdominal wall Physical Therapy Plan Frequency and Duration Frequency of Treatment 1x/Week Duration of Treatment 8 Plan of Care Start Date 05/26/19 Plan of Care End Date 07/21/19 Therapeutic Interventions Therapeutic Interventions Home Exercise Program,Manual Therapy,Neuromuscular Re- education,Patient/Caregiver Education,Self-Care/Home Management,Soft Tissue Mobilization,Therapeutic Exercises Modalities Biofeedback Next Visit Focus/Plan Next Note Type Treatment Note Next Visit Plan review stretches, EMG biofeedback, manual therapy techniques for pelvic floor relaxation
--- NOTE | 2019-07-22 18:11 | PT.OTN ---
Current Diagnoses Unspecified dyspareunia (07/22/19) Pelvic and perineal pain (07/22/19) Physical Therapy Treatment Note PT-OP-A Visit Information Start: 05/26/19 14:41 Freq: Status: Active Protocol: Document 07/22/19 16:00 [facility] (Rec: 07/25/19 18:11 [facility] [email or web address]) Out-Patient Physical Therapy Visit Information Visit Information Visit Type Treatment Note Visit Start Time 16:00 Visit Stop Time 16:45 Total Visit Minutes 45 Visit Number 4 Number of SOIL SORT WORKER Visits 0 PT-OP-B Current Condition Start: 05/26/19 14:41 Freq: Status: Active Protocol: Document 05/26/19 14:41 [facility] (Rec: 05/26/19 15:12 [facility] [email or web address]) Current Condition History of Current Condition Onset Date chronic but worsening Current Complaints pelvic pain and bleeding following intercourse,bleeding with bowel movement History of Current Condition symptoms began when she became sexually active but have worsened with time. Marie reports she was put on the pill when she was 12 as she had such painful periods and painful breasts. She has a hx of ovarian cycts. She does not currently menstruate as she takes the pill straight through her cycle to avoid a painful period. Her pelvic pain has been worsening and she reports a deep internal pain that she describes as centrally located in her pelvic floor. She reports she will bleed heavily following intercourse. She can soak through two tampons in a hour following intercourse. She also reports bleeding following a bowel movements and has hemorrhoids. She has had an exploritory surgery done by Dr. Tian and no endometriosis was found. She has undergone a colonoscopy and this was normal She has a defogram test next week PT-OP-C Subjective Start: 05/26/19 14:41 Freq: Status: Active Protocol: Document 07/22/19 16:00 [facility] (Rec: 07/25/19 18:11 [facility] [email or web address]) OP-PT Subjective Patient Comments Patient Comments pt notes intercourse is still very painful and she noted pain was very specific in the anterior pelvic floor but hasn't noticed the bleeding as much PT-OP-F Manual Assessment Start: 05/26/19 14:41 Freq: Status: Active Protocol: Document 05/26/19 14:41 [facility] (Rec: 05/26/19 15:12 [facility] [email or web address]) Manual Assessments Soft Tissue Assessment Soft Tissue Mobility Assessment tightness left side of the abdominal wall, Marie does not like the sensation of any manual movement of her abdominal wall or fascial movement over the bladder. She reports it has always felt sensitive in her abdomen. There is tightness across her bladder in the subrapubic fascia. Tightness of the levator ani and difficulty relaxing her pelvic floor following a contraction PT-OP-I Pelvic Floor Start: 05/26/19 14:41 Freq: Status: Active Protocol: Document 05/26/19 14:41 [facility] (Rec: 05/26/19 15:12 [facility] [email or web address]) Pelvic Floor Assessment Urine Pelvic Floor Surgery No Urinary Symptoms Urge Sensation Other Urinary Symptoms frequency of voiding and wakes 1-2 times per night Pelvic Clock Pelvic Clock 12-3 Hypertonic Pelvic Clock 3-6 Hypertonic Pelvic Clock 6-9 Hypertonic Pelvic Clock 9-12 Hypertonic Contraction Ability Manual Muscle Testing Left 4 Manual Muscle Testing Right 4 Manual Muscle Testing Anterior 3 Manual Muscle Testing Posterior 4 Muscle Endurance (Seconds) 3 Comments Pelvic Floor Comments very guarded and hypertonic in all parts of the levator ani. She is only able to hold a contraction for a few seconds and it flickers as she tries to hold it. No more than 3 seconds of endurance. There is pain to palpation in all parts of the levator ani with muscle guarding and hypertone PT-OP-J Posture/Palpation/Skin Start: 05/26/19 14:41 Freq: Status: Active Protocol: Document 05/27/19 13:58 [facility] (Rec: 05/27/19 13:59 [facility] [email or web address]) Palpation Assessment Location Two Palpation Location levator ani Palpation Findings Soft Tissue Tightness,Muscle Guarding,Tenderness One Palpation Location left side of abdominal wall, supra pubic fascia Palpation Findings Soft Tissue Tightness,Muscle Guarding,Tenderness PT-OP-Q Treatments Start: 05/26/19 14:41 Freq: Status: Active Protocol: Document 07/22/19 16:00 [facility] (Rec: 07/25/19 18:11 [facility] [email or web address]) Therapeutic Exercises Supine Exercises 3 Supine Exercise Name roll outs with theraband Reps/Minutes 3 x 10 reps 2 Supine Exercise Name pelvic floor 10 second hold 10 second relaxation Reps/Minutes x 10 reps 1 Supine Exercise Name supine stretches of dionisio pose, cobra, modified squat stretch Reps/Minutes 1-2 minutes each Other Exercises 5 Other Exercise Name full squat pelvic floor stretch 4 Other Exercise Name squats Reps/Minutes x 10 3 Other Exercise Name quadraped sidebend and thoracic rotation Reps/Minutes x 5 each 2 Other Exercise Name quadraped TA facilitation Reps/Minutes contract and relax 1 Other Exercise Name quadraped cat cow Reps/Minutes x 10 Comments working on relaxing the belly with a inhale Therapeutic Activity Therapeutic Activity 2 Name desensitizing for the abdominal wall Comments pt shown desensitizing techniques for the abdominal wall for decreased irritation to light touch 1 Name dialtor instructions Comments Marie was given a size small dilator and was given instructions on hsing it both for stretching her tissue and for self MFR to help reduce tension. This is for pain control to help functionally with her ability to engage in interourse with her . Manual Therapy Treatment Soft Tissue Mobilization 2 Body Location external pelvic floor diaphragm MFR 1 Body Location ILU abdominal massage Manual Techniques 1 Type manual assessment of pain within the pelvic floor Comments Marie is feeling pain at the urethra with intercourse. She continues to have guarding in her pelvic floor that creastes a very small outlet placing the urethra in position for friction with intercourse PT-OP-T Assessment and Plan Start: 05/26/19 14:41 Freq: Status: Active Protocol: Document 07/22/19 16:00 [facility] (Rec: 07/25/19 18:11 [facility] [email or web address]) Physical Therapy Assessment Assessment Summary Assessment with exam today Marie is still demonstrating elevated tone of her pelvic floor. I worked externally on her pelvic floor today and followign with biofeedback she did drop down with her resting tone. I added in dilator use for home and Marie was instructed in use of her dilator Physical Therapy Plan Frequency and Duration Frequency of Treatment 1x/Week Duration of Treatment 8 Plan of Care Start Date 05/26/19 Plan of Care End Date 07/21/19 Therapeutic Interventions Therapeutic Interventions Home Exercise Program,Manual Therapy,Neuromuscular Re- education,Patient/Caregiver Education,Self-Care/Home Management,Soft Tissue Mobilization,Therapeutic Exercises Modalities Biofeedback Next Visit Focus/Plan Next Note Type Treatment Note Next Visit Plan review stretches, EMG biofeedback, manual therapy techniques for pelvic floor relaxation. Progress dilator size as pt can tolerate
--- NOTE | 2019-07-27 09:22 | PT.OPPOC ---
Current Diagnoses Unspecified dyspareunia (07/27/19) Pelvic and perineal pain (07/27/19) Visit Care Team Role Provider Type Susana Bejarano MD Primary Care Provider Physician Specialty: Family Practice Address: [address] [place] [address], [facility] [place], [address] Email: [email or web address] Lisseth Tian MD Attending Provider Physician Specialty: RESEARCH GROUP DIRECTOR Address: [address] [place] [address], [id number] Email: [email or web address] Plan Of Care PT-OP-T Assessment and Plan Start: 05/26/19 14:41 Freq: Status: Active Protocol: Document 07/27/19 17:33 [facility] (Rec: 07/28/19 09:19 [facility] [email or web address]) Physical Therapy Assessment Goals Five Impairment Urinary urgency with nocturia 1-2 xms per night [facility] Goal (LTG) Marie reports decreased c/o urinary urgency and is only waking 1 time or less at night to void LTG Duration 8 weeks Four Impairment myofascial restrictions and sensitivity to touch over the abdominal fascia [facility] Goal (LTG) Marie is able to perform self massage over her abdominal wall to help improve fascial mobility, decrease urgency, and improve bowel movements Improving ability to tolerate any STM over her abdominal wall Three Impairment Decreased endurance of the pelvic floor < 3 sec hold time Short Term Goal (STG) Marie is able to sustain a pelvic floor contraction without pain x 5 seconds GOAL MET STG Duration 4 weeks Cost Control Specialist Goal (LTG) Marie is able to sustain a pelvic floor contraction without pain for 10 or more seconds GOAL MET LTG Duration 8 weeks Two Impairment Muscle guarding and spasm of the levator ani all parts of the pelvic clock Short Term Goal (STG) Marie is able to begin working on a home stretching program for pelvic pain and is aware of when she is clenching her pelvic floor at rest STG Duration 3-4 weeks Cost Control Specialist Goal (LTG) Marie is able to relax her pelvic floor to 2 uv or less on EMG biofeedback AT TIMES MARIE IS ABLE TO RELAX TO 2.0 uv LTG Duration 8 weeks One Impairment pelvic pain ranging from 4-9 with intercourse [facility] Goal (LTG) With a PT program for relaxed awareness of the pelvic floor Marie reports a overall decrease in pelvic pain with intercourse WORKING TOWARDS THIS GOAL LTG Duration 8 weeks Assessment Summary Assessment Marie is making progress with PT, it is slow but she is starting to feel that her pelvic floor is relaxing. She is able to perform pelvic floor isolations and hold x 10 seconds without pain. She is still having pain with intercourse but hasn't noticed the bleeding. She is working with a dilator for self stretching and is tolerating manual therapy techniques to help relax her pelvic floor. Today she demonstrated good reduction of tone on EMG biofeedback and average contraction was up to 10 uv today Physical Therapy Plan Frequency and Duration Frequency of Treatment 1x/Week Duration of Treatment 8 Plan of Care Start Date 07/27/19 Plan of Care End Date 09/28/19 Next Visit Focus/Plan Next Note Type Treatment Note Next Visit Plan reassess dilator use and progress to size large if able . Begin hip roll outs with theraband, review all quadruped abdominal exercises Plan of Care Dates Plan of Care Start Date 07/27/19 Plan of Care End Date 09/28/19
--- NOTE | 2019-07-27 16:00 | PT.OTN ---
Current Diagnoses Unspecified dyspareunia (07/27/19) Pelvic and perineal pain (07/27/19) Physical Therapy Treatment Note PT-OP-A Visit Information Start: 05/26/19 14:41 Freq: Status: Active Protocol: Document 07/27/19 17:33 [facility] (Rec: 07/28/19 09:19 [facility] [email or web address]) Out-Patient Physical Therapy Visit Information Visit Information Visit Type Progress Note Visit Start Time 16:00 Visit Stop Time 16:45 Total Visit Minutes 45 Visit Number 5 Number of LIABILITY CLAIMS EXAMINER Visits 0 PT-OP-B Current Condition Start: 05/26/19 14:41 Freq: Status: Active Protocol: Document 05/26/19 14:41 [facility] (Rec: 05/26/19 15:12 [facility] [email or web address]) Current Condition History of Current Condition Onset Date chronic but worsening Current Complaints pelvic pain and bleeding following intercourse,bleeding with bowel movement History of Current Condition symptoms began when she became sexually active but have worsened with time. Rachel reports she was put on the pill when she was 12 as she had such painful periods and painful breasts. She has a hx of ovarian cycts. She does not currently menstruate as she takes the pill straight through her cycle to avoid a painful period. Her pelvic pain has been worsening and she reports a deep internal pain that she describes as centrally located in her pelvic floor. She reports she will bleed heavily following intercourse. She can soak through two tampons in a hour following intercourse. She also reports bleeding following a bowel movements and has hemorrhoids. She has had an exploritory surgery done by Dr. Tian and no endometriosis was found. She has undergone a colonoscopy and this was normal She has a defogram test next week PT-OP-C Subjective Start: 05/26/19 14:41 Freq: Status: Active Protocol: Document 07/27/19 17:33 [facility] (Rec: 07/28/19 09:19 [facility] [email or web address]) OP-PT Subjective Patient Comments Patient Comments pt reports she could feel her pelvic floor become looser following last visit. She is also not feeling as much stretch with the dionisio pose. She tried the xs dilator and it doesn't stretch much but it was difficult to use for self massage PT-OP-F Manual Assessment Start: 05/26/19 14:41 Freq: Status: Active Protocol: Document 05/26/19 14:41 [facility] (Rec: 05/26/19 15:12 [facility] [email or web address]) Manual Assessments Soft Tissue Assessment Soft Tissue Mobility Assessment tightness left side of the abdominal wall, Rachel does not like the sensation of any manual movement of her abdominal wall or fascial movement over the bladder. She reports it has always felt sensitive in her abdomen. There is tightness across her bladder in the subrapubic fascia. Tightness of the levator ani and difficulty relaxing her pelvic floor following a contraction PT-OP-I Pelvic Floor Start: 05/26/19 14:41 Freq: Status: Active Protocol: Document 05/26/19 14:41 [facility] (Rec: 05/26/19 15:12 [facility] [email or web address]) Pelvic Floor Assessment Urine Pelvic Floor Surgery No Urinary Symptoms Urge Sensation Other Urinary Symptoms frequency of voiding and wakes 1-2 times per night Pelvic Clock Pelvic Clock 12-3 Hypertonic Pelvic Clock 3-6 Hypertonic Pelvic Clock 6-9 Hypertonic Pelvic Clock 9-12 Hypertonic Contraction Ability Manual Muscle Testing Left 4 Manual Muscle Testing Right 4 Manual Muscle Testing Anterior 3 Manual Muscle Testing Posterior 4 Muscle Endurance (Seconds) 3 Comments Pelvic Floor Comments very guarded and hypertonic in all parts of the levator ani. She is only able to hold a contraction for a few seconds and it flickers as she tries to hold it. No more than 3 seconds of endurance. There is pain to palpation in all parts of the levator ani with muscle guarding and hypertone PT-OP-J Posture/Palpation/Skin Start: 05/26/19 14:41 Freq: Status: Active Protocol: Document 05/27/19 13:58 [facility] (Rec: 05/27/19 13:59 [facility] [email or web address]) Palpation Assessment Location Two Palpation Location levator ani Palpation Findings Soft Tissue Tightness,Muscle Guarding,Tenderness One Palpation Location left side of abdominal wall, supra pubic fascia Palpation Findings Soft Tissue Tightness,Muscle Guarding,Tenderness PT-OP-Q Treatments Start: 05/26/19 14:41 Freq: Status: Active Protocol: Document 07/27/19 17:33 [facility] (Rec: 07/28/19 09:19 [facility] [email or web address]) Therapeutic Exercises Supine Exercises 2 Supine Exercise Name pelvic floor 10 second hold 10 second relaxation Reps/Minutes x 10 reps PT-OP-T Assessment and Plan Start: 05/26/19 14:41 Freq: Status: Active Protocol: Document 07/27/19 17:33 [facility] (Rec: 07/28/19 09:19 [facility] [email or web address]) Physical Therapy Assessment Goals Five Impairment Urinary urgency with nocturia 1-2 xms per night [facility] Goal (LTG) Rachel reports decreased c/o urinary urgency and is only waking 1 time or less at night to void LTG Duration 8 weeks Four Impairment myofascial restrictions and sensitivity to touch over the abdominal fascia Chocolatier Goal (LTG) Rachel is able to perform self massage over her abdominal wall to help improve fascial mobility, decrease urgency, and improve bowel movements Improving ability to tolerate any STM over her abdominal wall Three Impairment Decreased endurance of the pelvic floor < 3 sec hold time Short Term Goal (STG) Rachel is able to sustain a pelvic floor contraction without pain x 5 seconds GOAL MET STG Duration 4 weeks [facility] Goal (LTG) Rachel is able to sustain a pelvic floor contraction without pain for 10 or more seconds GOAL MET LTG Duration 8 weeks Two Impairment Muscle guarding and spasm of the levator ani all parts of the pelvic clock Short Term Goal (STG) Rachel is able to begin working on a home stretching program for pelvic pain and is aware of when she is clenching her pelvic floor at rest STG Duration 3-4 weeks Chocolatier Goal (LTG) Rachel is able to relax her pelvic floor to 2 uv or less on EMG biofeedback AT TIMES RACHEL IS ABLE TO RELAX TO 2.0 uv LTG Duration 8 weeks One Impairment pelvic pain ranging from 4-9 with intercourse Chocolatier Goal (LTG) With a PT program for relaxed awareness of the pelvic floor Rachel reports a overall decrease in pelvic pain with intercourse WORKING TOWARDS THIS GOAL LTG Duration 8 weeks Assessment Summary Assessment Rachel is making progress with PT, it is slow but she is starting to feel that her pelvic floor is relaxing. She is able to perform pelvic floor isolations and hold x 10 seconds without pain. She is still having pain with intercourse but hasn't noticed the bleeding. She is working with a dilator for self stretching and is tolerating manual therapy techniques to help relax her pelvic floor. Today she demonstrated good reduction of tone on EMG biofeedback and average contraction was up to 10 uv today Physical Therapy Plan Frequency and Duration Frequency of Treatment 1x/Week Duration of Treatment 8 Plan of Care Start Date 07/27/19 Plan of Care End Date 09/28/19 Next Visit Focus/Plan Next Note Type Treatment Note Next Visit Plan reassess dilator use and progress to size large if able . Begin hip roll outs with theraband, review all quadruped abdominal exercises
--- NOTE | 2019-08-03 17:24 | PT.OTN ---
Current Diagnoses Unspecified dyspareunia (08/03/19) Pelvic and perineal pain (08/03/19) Physical Therapy Treatment Note PT-OP-A Visit Information Start: 05/26/19 14:41 Freq: Status: Active Protocol: Document 08/03/19 17:13 [facility] (Rec: 08/03/19 17:24 [facility] [email or web address]) Out-Patient Physical Therapy Visit Information Visit Information Visit Type Treatment Note Visit Start Time 16:00 Visit Stop Time 16:45 Total Visit Minutes 45 Visit Number 6 Number of COMPRESSOR OPERATOR ADJUSTER Visits 0 Evaluation Information Evaluation Date 05/26/19 PT-OP-B Current Condition Start: 05/26/19 14:41 Freq: Status: Active Protocol: Document 05/26/19 14:41 [facility] (Rec: 05/26/19 15:12 [facility] [email or web address]) Current Condition History of Current Condition Onset Date chronic but worsening Current Complaints pelvic pain and bleeding following intercourse,bleeding with bowel movement History of Current Condition symptoms began when she became sexually active but have worsened with time. Marie reports she was put on the pill when she was 12 as she had such painful periods and painful breasts. She has a hx of ovarian cycts. She does not currently menstruate as she takes the pill straight through her cycle to avoid a painful period. Her pelvic pain has been worsening and she reports a deep internal pain that she describes as centrally located in her pelvic floor. She reports she will bleed heavily following intercourse. She can soak through two tampons in a hour following intercourse. She also reports bleeding following a bowel movements and has hemorrhoids. She has had an exploritory surgery done by Dr. Tian and no endometriosis was found. She has undergone a colonoscopy and this was normal She has a defogram test next week PT-OP-C Subjective Start: 05/26/19 14:41 Freq: Status: Active Protocol: Document 08/03/19 17:13 [facility] (Rec: 08/03/19 17:24 [facility] [email or web address]) OP-PT Subjective Patient Comments Patient Comments Tried size medium dilator but it was too large, xs too small . Also can feel the release we are doing in treatment so knows it is working. PT-OP-F Manual Assessment Start: 05/26/19 14:41 Freq: Status: Active Protocol: Document 05/26/19 14:41 [facility] (Rec: 05/26/19 15:12 [facility] [email or web address]) Manual Assessments Soft Tissue Assessment Soft Tissue Mobility Assessment tightness left side of the abdominal wall, Marie does not like the sensation of any manual movement of her abdominal wall or fascial movement over the bladder. She reports it has always felt sensitive in her abdomen. There is tightness across her bladder in the subrapubic fascia. Tightness of the levator ani and difficulty relaxing her pelvic floor following a contraction PT-OP-I Pelvic Floor Start: 05/26/19 14:41 Freq: Status: Active Protocol: Document 05/26/19 14:41 [facility] (Rec: 05/26/19 15:12 [facility] [email or web address]) Pelvic Floor Assessment Urine Pelvic Floor Surgery No Urinary Symptoms Urge Sensation Other Urinary Symptoms frequency of voiding and wakes 1-2 times per night Pelvic Clock Pelvic Clock 12-3 Hypertonic Pelvic Clock 3-6 Hypertonic Pelvic Clock 6-9 Hypertonic Pelvic Clock 9-12 Hypertonic Contraction Ability Manual Muscle Testing Left 4 Manual Muscle Testing Right 4 Manual Muscle Testing Anterior 3 Manual Muscle Testing Posterior 4 Muscle Endurance (Seconds) 3 Comments Pelvic Floor Comments very guarded and hypertonic in all parts of the levator ani. She is only able to hold a contraction for a few seconds and it flickers as she tries to hold it. No more than 3 seconds of endurance. There is pain to palpation in all parts of the levator ani with muscle guarding and hypertone PT-OP-J Posture/Palpation/Skin Start: 05/26/19 14:41 Freq: Status: Active Protocol: Document 05/27/19 13:58 [facility] (Rec: 05/27/19 13:59 [facility] [email or web address]) Palpation Assessment Location Two Palpation Location levator ani Palpation Findings Soft Tissue Tightness,Muscle Guarding,Tenderness One Palpation Location left side of abdominal wall, supra pubic fascia Palpation Findings Soft Tissue Tightness,Muscle Guarding,Tenderness PT-OP-Q Treatments Start: 05/26/19 14:41 Freq: Status: Active Protocol: Document 08/03/19 17:13 [facility] (Rec: 08/03/19 17:24 [facility] [email or web address]) Therapeutic Exercises Supine Exercises 4 Supine Exercise Name piriformis stretch 2 Supine Exercise Name pelvic floor 10 second hold 10 second relaxation Reps/Minutes x 10 reps 1 Supine Exercise Name supine stretches of dionisio pose, cobra, modified squat stretch Reps/Minutes 1-2 minutes each Other Exercises 2 Other Exercise Name quadraped TA facilitation Reps/Minutes contract and relax 1 Other Exercise Name quadraped cat cow Reps/Minutes x 10 Comments working on relaxing the belly with a inhale Manual Therapy Treatment Soft Tissue Mobilization 2 Body Location external pelvic floor diaphragm MFR 1 Body Location ILU abdominal massage PT-OP-T Assessment and Plan Start: 05/26/19 14:41 Freq: Status: Active Protocol: Document 08/03/19 17:13 [facility] (Rec: 08/03/19 17:24 [facility] [email or web address]) Physical Therapy Assessment Assessment Summary Assessment Pt is not waking up 2 times at night now as much, often it is just one time per night and 3 nights she has slept through the night. Able to tolerate 10 minutes of abdominal massage today. Gave size small dilator for home as medium was too large Physical Therapy Plan Frequency and Duration Frequency of Treatment 1x/Week Duration of Treatment 8 Plan of Care Start Date 07/27/19 Plan of Care End Date 09/28/19 Therapeutic Interventions Therapeutic Interventions Home Exercise Program,Manual Therapy,Neuromuscular Re- education,Patient/Caregiver Education,Self-Care/Home Management,Soft Tissue Mobilization,Therapeutic Exercises Next Visit Focus/Plan Next Note Type Treatment Note Next Visit Plan review size small dilator next visit and revisit hip roll outs, begin internal pelvic floor release if pt able to tolerate.
--- NOTE | 2019-08-10 17:10 | PT.OTN ---
Current Diagnoses Unspecified dyspareunia (08/10/19) Pelvic and perineal pain (08/10/19) Physical Therapy Treatment Note PT-OP-A Visit Information Start: 05/26/19 14:41 Freq: Status: Active Protocol: Document 08/10/19 17:02 [facility] (Rec: 08/10/19 17:10 [facility] [email or web address]) Out-Patient Physical Therapy Visit Information Visit Information Visit Type Treatment Note Visit Start Time 16:00 Visit Stop Time 16:45 Total Visit Minutes 45 Visit Number 7 PT-OP-B Current Condition Start: 05/26/19 14:41 Freq: Status: Active Protocol: Document 05/26/19 14:41 [facility] (Rec: 05/26/19 15:12 [facility] [email or web address]) Current Condition History of Current Condition Onset Date chronic but worsening Current Complaints pelvic pain and bleeding following intercourse,bleeding with bowel movement History of Current Condition symptoms began when she became sexually active but have worsened with time. Marie reports she was put on the pill when she was 12 as she had such painful periods and painful breasts. She has a hx of ovarian cycts. She does not currently menstruate as she takes the pill straight through her cycle to avoid a painful period. Her pelvic pain has been worsening and she reports a deep internal pain that she describes as centrally located in her pelvic floor. She reports she will bleed heavily following intercourse. She can soak through two tampons in a hour following intercourse. She also reports bleeding following a bowel movements and has hemorrhoids. She has had an exploritory surgery done by Dr. Tian and no endometriosis was found. She has undergone a colonoscopy and this was normal She has a defogram test next week PT-OP-C Subjective Start: 05/26/19 14:41 Freq: Status: Active Protocol: Document 08/10/19 17:02 [facility] (Rec: 08/10/19 17:10 [facility] [email or web address]) OP-PT Subjective Patient Comments Patient Comments pt reports she hasn't had a lot of time to do the dilator this week. She has been stretching happy baby stretch and feels this is more comfortable now. PT-OP-F Manual Assessment Start: 05/26/19 14:41 Freq: Status: Active Protocol: Document 05/26/19 14:41 [facility] (Rec: 05/26/19 15:12 [facility] [email or web address]) Manual Assessments Soft Tissue Assessment Soft Tissue Mobility Assessment tightness left side of the abdominal wall, Marie does not like the sensation of any manual movement of her abdominal wall or fascial movement over the bladder. She reports it has always felt sensitive in her abdomen. There is tightness across her bladder in the subrapubic fascia. Tightness of the levator ani and difficulty relaxing her pelvic floor following a contraction PT-OP-I Pelvic Floor Start: 05/26/19 14:41 Freq: Status: Active Protocol: Document 05/26/19 14:41 [facility] (Rec: 05/26/19 15:12 [facility] [email or web address]) Pelvic Floor Assessment Urine Pelvic Floor Surgery No Urinary Symptoms Urge Sensation Other Urinary Symptoms frequency of voiding and wakes 1-2 times per night Pelvic Clock Pelvic Clock 12-3 Hypertonic Pelvic Clock 3-6 Hypertonic Pelvic Clock 6-9 Hypertonic Pelvic Clock 9-12 Hypertonic Contraction Ability Manual Muscle Testing Left 4 Manual Muscle Testing Right 4 Manual Muscle Testing Anterior 3 Manual Muscle Testing Posterior 4 Muscle Endurance (Seconds) 3 Comments Pelvic Floor Comments very guarded and hypertonic in all parts of the levator ani. She is only able to hold a contraction for a few seconds and it flickers as she tries to hold it. No more than 3 seconds of endurance. There is pain to palpation in all parts of the levator ani with muscle guarding and hypertone PT-OP-J Posture/Palpation/Skin Start: 05/26/19 14:41 Freq: Status: Active Protocol: Document 05/27/19 13:58 [facility] (Rec: 05/27/19 13:59 [facility] [email or web address]) Palpation Assessment Location Two Palpation Location levator ani Palpation Findings Soft Tissue Tightness,Muscle Guarding,Tenderness One Palpation Location left side of abdominal wall, supra pubic fascia Palpation Findings Soft Tissue Tightness,Muscle Guarding,Tenderness PT-OP-Q Treatments Start: 05/26/19 14:41 Freq: Status: Active Protocol: Document 08/10/19 17:02 [facility] (Rec: 08/10/19 17:10 [facility] [email or web address]) Therapeutic Exercises Supine Exercises 4 Supine Exercise Name piriformis stretch 1 Supine Exercise Name supine stretches of dionisio pose, cobra, modified squat stretch Reps/Minutes 1-2 minutes each Other Exercises 6 Other Exercise Name down dog modified stretch with use of chair 3 Other Exercise Name quadraped sidebend and thoracic rotation Reps/Minutes x 5 each 2 Other Exercise Name quadraped TA facilitation Reps/Minutes contract and relax 1 Other Exercise Name quadraped cat cow Reps/Minutes x 10 Comments working on relaxing the belly with a inhale Manual Therapy Treatment Soft Tissue Mobilization 3 Body Location internal release of the illiococcygeus bilaterally 2 Body Location external pelvic floor diaphragm MFR 1 Body Location ILU abdominal massage Manual Techniques 1 Type manual assessment of pain within the pelvic floor Comments tenderness at the urethra and tip of cervix PT-OP-T Assessment and Plan Start: 05/26/19 14:41 Freq: Status: Active Protocol: Document 08/10/19 17:02 [facility] (Rec: 08/10/19 17:10 [facility] [email or web address]) Physical Therapy Assessment Assessment Summary Assessment pt was able to tolerate manual internal release of the iliococcygeus musculature. She was tight bilaterally but responded well to treatment. She also may benefit from working on her pelvic floor exercises in a tipped position to take pressure off both the bladder and uterus. Physical Therapy Plan Frequency and Duration Frequency of Treatment 1x/Week Duration of Treatment 8 Plan of Care Start Date 07/27/19 Plan of Care End Date 09/28/19 Therapeutic Interventions Therapeutic Interventions Home Exercise Program,Manual Therapy,Neuromuscular Re- education,Patient/Caregiver Education,Self-Care/Home Management,Soft Tissue Mobilization,Therapeutic Exercises Next Visit Focus/Plan Next Note Type Treatment Note Next Visit Plan reassess how pt did with internal work, use the wedge next visit for pelvic floor exercises. Reassess resting tone on EMG biofeedback next visit
--- NOTE | 2019-08-17 16:45 | PT.OTN ---
Current Diagnoses Unspecified dyspareunia (08/17/19) Pelvic and perineal pain (08/17/19) Physical Therapy Treatment Note PT-OP-A Visit Information Start: 05/26/19 14:41 Freq: Status: Active Protocol: Document 08/17/19 16:00 [facility] (Rec: 08/18/19 09:44 [facility] [email or web address]) Out-Patient Physical Therapy Visit Information Visit Information Visit Type Treatment Note Visit Start Time 16:00 Visit Stop Time 16:45 Total Visit Minutes 45 Visit Number 8 PT-OP-B Current Condition Start: 05/26/19 14:41 Freq: Status: Active Protocol: Document 05/26/19 14:41 [facility] (Rec: 05/26/19 15:12 [facility] [email or web address]) Current Condition History of Current Condition Onset Date chronic but worsening Current Complaints pelvic pain and bleeding following intercourse,bleeding with bowel movement History of Current Condition symptoms began when she became sexually active but have worsened with time. Marie reports she was put on the pill when she was 12 as she had such painful periods and painful breasts. She has a hx of ovarian cycts. She does not currently menstruate as she takes the pill straight through her cycle to avoid a painful period. Her pelvic pain has been worsening and she reports a deep internal pain that she describes as centrally located in her pelvic floor. She reports she will bleed heavily following intercourse. She can soak through two tampons in a hour following intercourse. She also reports bleeding following a bowel movements and has hemorrhoids. She has had an exploritory surgery done by Dr. Tian and no endometriosis was found. She has undergone a colonoscopy and this was normal She has a defogram test next week PT-OP-C Subjective Start: 05/26/19 14:41 Freq: Status: Active Protocol: Document 08/17/19 16:00 [facility] (Rec: 08/18/19 09:44 [facility] [email or web address]) OP-PT Subjective Patient Comments Patient Comments pt reports she has had a stressfull week with work and hasn't been able to do all of her stretches at home. She has felt very tense all over this week PT-OP-F Manual Assessment Start: 05/26/19 14:41 Freq: Status: Active Protocol: Document 05/26/19 14:41 [facility] (Rec: 05/26/19 15:12 [facility] [email or web address]) Manual Assessments Soft Tissue Assessment Soft Tissue Mobility Assessment tightness left side of the abdominal wall, Marie does not like the sensation of any manual movement of her abdominal wall or fascial movement over the bladder. She reports it has always felt sensitive in her abdomen. There is tightness across her bladder in the subrapubic fascia. Tightness of the levator ani and difficulty relaxing her pelvic floor following a contraction PT-OP-I Pelvic Floor Start: 05/26/19 14:41 Freq: Status: Active Protocol: Document 05/26/19 14:41 [facility] (Rec: 05/26/19 15:12 [facility] [email or web address]) Pelvic Floor Assessment Urine Pelvic Floor Surgery No Urinary Symptoms Urge Sensation Other Urinary Symptoms frequency of voiding and wakes 1-2 times per night Pelvic Clock Pelvic Clock 12-3 Hypertonic Pelvic Clock 3-6 Hypertonic Pelvic Clock 6-9 Hypertonic Pelvic Clock 9-12 Hypertonic Contraction Ability Manual Muscle Testing Left 4 Manual Muscle Testing Right 4 Manual Muscle Testing Anterior 3 Manual Muscle Testing Posterior 4 Muscle Endurance (Seconds) 3 Comments Pelvic Floor Comments very guarded and hypertonic in all parts of the levator ani. She is only able to hold a contraction for a few seconds and it flickers as she tries to hold it. No more than 3 seconds of endurance. There is pain to palpation in all parts of the levator ani with muscle guarding and hypertone PT-OP-J Posture/Palpation/Skin Start: 05/26/19 14:41 Freq: Status: Active Protocol: Document 05/27/19 13:58 [facility] (Rec: 05/27/19 13:59 [facility] [email or web address]) Palpation Assessment Location Two Palpation Location levator ani Palpation Findings Soft Tissue Tightness,Muscle Guarding,Tenderness One Palpation Location left side of abdominal wall, supra pubic fascia Palpation Findings Soft Tissue Tightness,Muscle Guarding,Tenderness PT-OP-Q Treatments Start: 05/26/19 14:41 Freq: Status: Active Protocol: Document 08/17/19 16:00 [facility] (Rec: 08/18/19 09:44 [facility] [email or web address]) Therapeutic Exercises Supine Exercises 5 Supine Exercise Name diaphragmatic breathing Reps/Minutes x 4 min 4 Supine Exercise Name piriformis stretch 1 Supine Exercise Name supine stretches of dionisio pose, cobra, modified squat stretch Reps/Minutes 1-2 minutes each Other Exercises 6 Other Exercise Name down dog modified stretch with use of chair 5 Other Exercise Name goddness pose 3 Other Exercise Name quadraped sidebend and thoracic rotation Reps/Minutes x 5 each 2 Other Exercise Name quadraped TA facilitation Reps/Minutes contract and relax 1 Other Exercise Name quadraped cat cow Reps/Minutes x 10 Comments working on relaxing the belly with a inhale Manual Therapy Treatment Soft Tissue Mobilization 4 Body Location posterior gluteal release with pundendal nerve flossing 2 Body Location external pelvic floor diaphragm MFR PT-OP-T Assessment and Plan Start: 05/26/19 14:41 Freq: Status: Active Protocol: Document 08/17/19 16:00 [facility] (Rec: 08/18/19 09:44 [facility] [email or web address]) Physical Therapy Assessment Assessment Summary Assessment no internal weork done today as Marie has been spotting. Spent a lot of time on breathwork for relaxation. Encouraged her to return to dilator stretching this next week Physical Therapy Plan Frequency and Duration Frequency of Treatment 1x/Week Duration of Treatment 8 Plan of Care Start Date 07/27/19 Plan of Care End Date 09/28/19 Next Visit Focus/Plan Next Note Type Treatment Note Next Visit Plan internal MFR next visit and down training with EMG biofeedback
--- NOTE | 2019-09-07 18:17 | PT.OTN ---
Current Diagnoses Unspecified dyspareunia (09/07/19) Pelvic and perineal pain (09/07/19) Physical Therapy Treatment Note PT-OP-A Visit Information Start: 05/26/19 14:41 Freq: Status: Active Protocol: Document 09/07/19 18:13 [facility] (Rec: 09/07/19 18:17 [facility] [email or web address]) Out-Patient Physical Therapy Visit Information Visit Information Visit Type Treatment Note Visit Start Time 16:00 Visit Stop Time 16:45 Total Visit Minutes 45 Visit Number 9 PT-OP-B Current Condition Start: 05/26/19 14:41 Freq: Status: Active Protocol: Document 05/26/19 14:41 [facility] (Rec: 05/26/19 15:12 [facility] [email or web address]) Current Condition History of Current Condition Onset Date chronic but worsening Current Complaints pelvic pain and bleeding following intercourse,bleeding with bowel movement History of Current Condition symptoms began when she became sexually active but have worsened with time. Marie reports she was put on the pill when she was 12 as she had such painful periods and painful breasts. She has a hx of ovarian cycts. She does not currently menstruate as she takes the pill straight through her cycle to avoid a painful period. Her pelvic pain has been worsening and she reports a deep internal pain that she describes as centrally located in her pelvic floor. She reports she will bleed heavily following intercourse. She can soak through two tampons in a hour following intercourse. She also reports bleeding following a bowel movements and has hemorrhoids. She has had an exploritory surgery done by Dr. Tian and no endometriosis was found. She has undergone a colonoscopy and this was normal She has a defogram test next week PT-OP-C Subjective Start: 05/26/19 14:41 Freq: Status: Active Protocol: Document 09/07/19 18:13 [facility] (Rec: 09/07/19 18:17 [facility] [email or web address]) OP-PT Subjective Patient Comments Patient Comments Marie reports she went off the control pill to allow herself to have a period . Size medium dilator still difficult to use PT-OP-F Manual Assessment Start: 05/26/19 14:41 Freq: Status: Active Protocol: Document 05/26/19 14:41 [facility] (Rec: 05/26/19 15:12 [facility] [email or web address]) Manual Assessments Soft Tissue Assessment Soft Tissue Mobility Assessment tightness left side of the abdominal wall, Marie does not like the sensation of any manual movement of her abdominal wall or fascial movement over the bladder. She reports it has always felt sensitive in her abdomen. There is tightness across her bladder in the subrapubic fascia. Tightness of the levator ani and difficulty relaxing her pelvic floor following a contraction PT-OP-I Pelvic Floor Start: 05/26/19 14:41 Freq: Status: Active Protocol: Document 05/26/19 14:41 [facility] (Rec: 05/26/19 15:12 [facility] [email or web address]) Pelvic Floor Assessment Urine Pelvic Floor Surgery No Urinary Symptoms Urge Sensation Other Urinary Symptoms frequency of voiding and wakes 1-2 times per night Pelvic Clock Pelvic Clock 12-3 Hypertonic Pelvic Clock 3-6 Hypertonic Pelvic Clock 6-9 Hypertonic Pelvic Clock 9-12 Hypertonic Contraction Ability Manual Muscle Testing Left 4 Manual Muscle Testing Right 4 Manual Muscle Testing Anterior 3 Manual Muscle Testing Posterior 4 Muscle Endurance (Seconds) 3 Comments Pelvic Floor Comments very guarded and hypertonic in all parts of the levator ani. She is only able to hold a contraction for a few seconds and it flickers as she tries to hold it. No more than 3 seconds of endurance. There is pain to palpation in all parts of the levator ani with muscle guarding and hypertone PT-OP-J Posture/Palpation/Skin Start: 05/26/19 14:41 Freq: Status: Active Protocol: Document 05/27/19 13:58 [facility] (Rec: 05/27/19 13:59 [facility] [email or web address]) Palpation Assessment Location Two Palpation Location levator ani Palpation Findings Soft Tissue Tightness,Muscle Guarding,Tenderness One Palpation Location left side of abdominal wall, supra pubic fascia Palpation Findings Soft Tissue Tightness,Muscle Guarding,Tenderness PT-OP-Q Treatments Start: 05/26/19 14:41 Freq: Status: Active Protocol: Document 09/07/19 18:13 [facility] (Rec: 09/07/19 18:17 [facility] [email or web address]) Therapeutic Exercises Supine Exercises 3 Supine Exercise Name roll outs with theraband Reps/Minutes 3 x 10 reps 2 Supine Exercise Name pelvic floor 10 second hold 10 second relaxation Reps/Minutes x 10 reps Manual Therapy Treatment Soft Tissue Mobilization 4 Body Location posterior gluteal release with pundendal nerve flossing 2 Body Location external pelvic floor diaphragm MFR 1 Body Location ILU abdominal massage PT-OP-T Assessment and Plan Start: 05/26/19 14:41 Freq: Status: Active Protocol: Document 09/07/19 18:13 [facility] (Rec: 09/07/19 18:17 [facility] [email or web address]) Physical Therapy Assessment Assessment Summary Assessment pts resting tone was down to 1 .5 uv today on EMG biofeedback . This is the best it has been. Pt is working on her stretches at home and I told her to work with contract/ relax with the electrode in prior to using the size medium dilator. Physical Therapy Plan Frequency and Duration Frequency of Treatment 1x/Week Duration of Treatment 8 Plan of Care Start Date 07/27/19 Plan of Care End Date 09/28/19 Next Visit Focus/Plan Next Note Type Treatment Note Next Visit Plan advance stretches for pelvic pain next visit
--- NOTE | 2019-09-14 18:16 | PT.OTN ---
Current Diagnoses Unspecified dyspareunia (09/14/19) Pelvic and perineal pain (09/14/19) Physical Therapy Treatment Note PT-OP-A Visit Information Start: 05/26/19 14:41 Freq: Status: Active Protocol: Document 09/14/19 18:11 [facility] (Rec: 09/14/19 18:16 [facility] [id number]) Out-Patient Physical Therapy Visit Information Visit Information Visit Type Treatment Note Visit Start Time 16:00 Visit Stop Time 16:45 Total Visit Minutes 45 Visit Number 10 PT-OP-B Current Condition Start: 05/26/19 14:41 Freq: Status: Active Protocol: Document 05/26/19 14:41 [facility] (Rec: 05/26/19 15:12 [facility] [email or web address]) Current Condition History of Current Condition Onset Date chronic but worsening Current Complaints pelvic pain and bleeding following intercourse,bleeding with bowel movement History of Current Condition symptoms began when she became sexually active but have worsened with time. Marei reports she was put on the pill when she was 12 as she had such painful periods and painful breasts. She has a hx of ovarian cycts. She does not currently menstruate as she takes the pill straight through her cycle to avoid a painful period. Her pelvic pain has been worsening and she reports a deep internal pain that she describes as centrally located in her pelvic floor. She reports she will bleed heavily following intercourse. She can soak through two tampons in a hour following intercourse. She also reports bleeding following a bowel movements and has hemorrhoids. She has had an exploritory surgery done by Dr. Tian and no endometriosis was found. She has undergone a colonoscopy and this was normal She has a defogram test next week PT-OP-C Subjective Start: 05/26/19 14:41 Freq: Status: Active Protocol: Document 09/14/19 16:13 [facility] (Rec: 09/14/19 16:15 [facility] [id number]) OP-PT Subjective Patient Comments Patient Comments Pt reports no bleeding with intercourse Patient Reported Progress Same PT-OP-F Manual Assessment Start: 05/26/19 14:41 Freq: Status: Active Protocol: Document 05/26/19 14:41 [facility] (Rec: 05/26/19 15:12 [facility] [email or web address]) Manual Assessments Soft Tissue Assessment Soft Tissue Mobility Assessment tightness left side of the abdominal wall, Marie does not like the sensation of any manual movement of her abdominal wall or fascial movement over the bladder. She reports it has always felt sensitive in her abdomen. There is tightness across her bladder in the subrapubic fascia. Tightness of the levator ani and difficulty relaxing her pelvic floor following a contraction PT-OP-I Pelvic Floor Start: 05/26/19 14:41 Freq: Status: Active Protocol: Document 05/26/19 14:41 [facility] (Rec: 05/26/19 15:12 [facility] [email or web address]) Pelvic Floor Assessment Urine Pelvic Floor Surgery No Urinary Symptoms Urge Sensation Other Urinary Symptoms frequency of voiding and wakes 1-2 times per night Pelvic Clock Pelvic Clock 12-3 Hypertonic Pelvic Clock 3-6 Hypertonic Pelvic Clock 6-9 Hypertonic Pelvic Clock 9-12 Hypertonic Contraction Ability Manual Muscle Testing Left 4 Manual Muscle Testing Right 4 Manual Muscle Testing Anterior 3 Manual Muscle Testing Posterior 4 Muscle Endurance (Seconds) 3 Comments Pelvic Floor Comments very guarded and hypertonic in all parts of the levator ani. She is only able to hold a contraction for a few seconds and it flickers as she tries to hold it. No more than 3 seconds of endurance. There is pain to palpation in all parts of the levator ani with muscle guarding and hypertone PT-OP-J Posture/Palpation/Skin Start: 05/26/19 14:41 Freq: Status: Active Protocol: Document 05/27/19 13:58 [facility] (Rec: 05/27/19 13:59 [facility] [email or web address]) Palpation Assessment Location Two Palpation Location levator ani Palpation Findings Soft Tissue Tightness,Muscle Guarding,Tenderness One Palpation Location left side of abdominal wall, supra pubic fascia Palpation Findings Soft Tissue Tightness,Muscle Guarding,Tenderness PT-OP-Q Treatments Start: 05/26/19 14:41 Freq: Status: Active Protocol: Document 09/14/19 18:11 [facility] (Rec: 09/14/19 18:16 [facility] [id number]) Therapeutic Exercises Supine Exercises 3 Supine Exercise Name roll outs Reps/Minutes 3 x 10 reps 2 Supine Exercise Name pelvic floor 10 second hold 10 second relaxation Reps/Minutes x 10 reps Manual Therapy Treatment Soft Tissue Mobilization 4 Body Location posterior gluteal release with pundendal nerve flossing 2 Body Location external pelvic floor diaphragm MFR 1 Body Location ILU abdominal massage PT-OP-T Assessment and Plan Start: 05/26/19 14:41 Freq: Status: Active Protocol: Document 09/14/19 18:11 [facility] (Rec: 09/14/19 18:16 [facility] [id number]) Physical Therapy Assessment Assessment Summary Assessment Marie has been able to have intercourse now without bleeding. Size medium dilator is still difficult but she is tolerating it for 8 minutes per day. Resting tone was not as low as last visit but did drop to 2 uv following her contractions Physical Therapy Plan Frequency and Duration Frequency of Treatment 1x/Week Duration of Treatment 8 Plan of Care Start Date 07/27/19 Plan of Care End Date 09/28/19 Therapeutic Interventions Therapeutic Interventions Home Exercise Program,Manual Therapy,Neuromuscular Re- education,Patient/Caregiver Education,Self-Care/Home Management,Soft Tissue Mobilization,Therapeutic Exercises Next Visit Focus/Plan Next Note Type Treatment Note Next Visit Plan review all stretches for pelvic pain next visit prior to manual therapy work
--- NOTE | 2019-09-21 16:55 | PT.OTN ---
Current Diagnoses Unspecified dyspareunia (09/21/19) Pelvic and perineal pain (09/21/19) Physical Therapy Treatment Note PT-OP-A Visit Information Start: 05/26/19 14:41 Freq: Status: Active Protocol: Document 09/21/19 16:50 [facility] (Rec: 09/26/19 14:22 [facility] [email or web address]) Out-Patient Physical Therapy Visit Information Visit Information Visit Type Other Visit Note no charge today as pt had new onsets of abdominal pain. She was sent to make a appointment with her physician Visit Start Time 16:00 Visit Stop Time 16:15 Total Visit Minutes 15 PT-OP-B Current Condition Start: 05/26/19 14:41 Freq: Status: Active Protocol: Document 05/26/19 14:41 [facility] (Rec: 05/26/19 15:12 [facility] [email or web address]) Current Condition History of Current Condition Onset Date chronic but worsening Current Complaints pelvic pain and bleeding following intercourse,bleeding with bowel movement History of Current Condition symptoms began when she became sexually active but have worsened with time. Marie reports she was put on the pill when she was 12 as she had such painful periods and painful breasts. She has a hx of ovarian cycts. She does not currently menstruate as she takes the pill straight through her cycle to avoid a painful period. Her pelvic pain has been worsening and she reports a deep internal pain that she describes as centrally located in her pelvic floor. She reports she will bleed heavily following intercourse. She can soak through two tampons in a hour following intercourse. She also reports bleeding following a bowel movements and has hemorrhoids. She has had an exploritory surgery done by Dr. Tian and no endometriosis was found. She has undergone a colonoscopy and this was normal She has a defogram test next week PT-OP-C Subjective Start: 05/26/19 14:41 Freq: Status: Active Protocol: Document 09/21/19 16:00 [facility] (Rec: 09/26/19 14:19 [facility] [email or web address]) OP-PT Subjective Patient Comments Patient Comments pt reports new onset of right sided abdominal pain, she notes she feels as if she got punched in the gut She also c/o nausea and vomiting x 1 week PT-OP-F Manual Assessment Start: 05/26/19 14:41 Freq: Status: Active Protocol: Document 05/26/19 14:41 [facility] (Rec: 08/21/19 15:12 [facility] [email or web address]) Manual Assessments Soft Tissue Assessment Soft Tissue Mobility Assessment tightness left side of the abdominal wall, Marie does not like the sensation of any manual movement of her abdominal wall or fascial movement over the bladder. She reports it has always felt sensitive in her abdomen. There is tightness across her bladder in the subrapubic fascia. Tightness of the levator ani and difficulty relaxing her pelvic floor following a contraction PT-OP-I Pelvic Floor Start: 05/26/19 14:41 Freq: Status: Active Protocol: Document 05/26/19 14:41 [facility] (Rec: 05/26/19 15:12 [facility] [email or web address]) Pelvic Floor Assessment Urine Pelvic Floor Surgery No Urinary Symptoms Urge Sensation Other Urinary Symptoms frequency of voiding and wakes 1-2 times per night Pelvic Clock Pelvic Clock 12-3 Hypertonic Pelvic Clock 3-6 Hypertonic Pelvic Clock 6-9 Hypertonic Pelvic Clock 9-12 Hypertonic Contraction Ability Manual Muscle Testing Left 4 Manual Muscle Testing Right 4 Manual Muscle Testing Anterior 3 Manual Muscle Testing Posterior 4 Muscle Endurance (Seconds) 3 Comments Pelvic Floor Comments very guarded and hypertonic in all parts of the levator ani. She is only able to hold a contraction for a few seconds and it flickers as she tries to hold it. No more than 3 seconds of endurance. There is pain to palpation in all parts of the levator ani with muscle guarding and hypertone PT-OP-J Posture/Palpation/Skin Start: 05/26/19 14:41 Freq: Status: Active Protocol: Document 05/27/19 13:58 [facility] (Rec: 05/27/19 13:59 [facility] [email or web address]) Palpation Assessment Location Two Palpation Location levator ani Palpation Findings Soft Tissue Tightness,Muscle Guarding,Tenderness One Palpation Location left side of abdominal wall, supra pubic fascia Palpation Findings Soft Tissue Tightness,Muscle Guarding,Tenderness PT-OP-Q Treatments Start: 05/26/19 14:41 Freq: Status: Active Protocol: Document 09/14/19 18:11 [facility] (Rec: 09/14/19 18:16 [facility] [id number]) Therapeutic Exercises Supine Exercises 3 Supine Exercise Name roll outs Reps/Minutes 3 x 10 reps 2 Supine Exercise Name pelvic floor 10 second hold 10 second relaxation Reps/Minutes x 10 reps Manual Therapy Treatment Soft Tissue Mobilization 4 Body Location posterior gluteal release with pundendal nerve flossing 2 Body Location external pelvic floor diaphragm MFR 1 Body Location ILU abdominal massage PT-OP-T Assessment and Plan Start: 05/26/19 14:41 Freq: Status: Active Protocol: Document 09/21/19 16:51 [facility] (Rec: 09/21/19 16:56 [facility] [email or web address]) Physical Therapy Assessment Assessment Summary Assessment The patient came in today with new complaints of right sided abdominal pain and nausea that has been with her for a week. I did check her pelvic alignment as her pain was in the lower right quadrant but her pelvis looked even and aligned today. She had point tenderness to touch and laying on her stomach hurt. I advised her to make a appointment with her doctor to rule out appendicitis or gall bladder issues. No PT done today
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
--- NOTE | 2019-12-21 11:30 | PT.OTN ---
Current Diagnoses Unspecified dyspareunia (12/14/19) Pelvic and perineal pain (12/14/19) Physical Therapy Treatment Note PT-OP-A Visit Information Start: 05/26/19 14:41 Freq: Status: Active Protocol: Document 12/14/19 18:36 [facility] (Rec: 12/16/19 18:36 [facility] [email or web address]) Out-Patient Physical Therapy Visit Information Visit Information Visit Type Treatment Note Visit Start Time 16:00 Visit Stop Time 16:45 Total Visit Minutes 45 Visit Number 13 PT-OP-B Current Condition Start: 05/26/19 14:41 Freq: Status: Active Protocol: Document 05/26/19 14:41 [facility] (Rec: 05/26/19 15:12 [facility] [email or web address]) Current Condition History of Current Condition Onset Date chronic but worsening Current Complaints pelvic pain and bleeding following intercourse,bleeding with bowel movement History of Current Condition symptoms began when she became sexually active but have worsened with time. Rachel reports she was put on the pill when she was 12 as she had such painful periods and painful breasts. She has a hx of ovarian cycts. She does not currently menstruate as she takes the pill straight through her cycle to avoid a painful period. Her pelvic pain has been worsening and she reports a deep internal pain that she describes as centrally located in her pelvic floor. She reports she will bleed heavily following intercourse. She can soak through two tampons in a hour following intercourse. She also reports bleeding following a bowel movements and has hemorrhoids. She has had an exploritory surgery done by Dr. Tian and no endometriosis was found. She has undergone a colonoscopy and this was normal She has a defogram test next week PT-OP-C Subjective Start: 05/26/19 14:41 Freq: Status: Active Protocol: Document 12/14/19 16:00 [facility] (Rec: 12/21/19 11:13 [facility] [id number]) OP-PT Subjective Patient Comments Patient Comments pt reports she has been on vacation and has not been doing her stretches. She does feel and continues to have pelvic pain however this has been reduced to 4/10 at this time. She reports she is no longer experiencing the swollen lymph nodes Patient Reported Progress Improving OP-PT Pain Assessment Location pelvic pain Intensity 4 Scale Used Numeric (1 - 10) Description Acute,Pressure,Sharp,Spasm, Stabbing,Tightness Pain Duration with intercourse, can vary from 4-9 PT-OP-F Manual Assessment Start: 05/26/19 14:41 Freq: Status: Active Protocol: Document 05/26/19 14:41 [facility] (Rec: 05/26/19 15:12 [facility] [id number]) Manual Assessments Soft Tissue Assessment Soft Tissue Mobility Assessment tightness left side of the abdominal wall, Rachel does not like the sensation of any manual movement of her abdominal wall or fascial movement over the bladder. She reports it has always felt sensitive in her abdomen. There is tightness across her bladder in the subrapubic fascia. Tightness of the levator ani and difficulty relaxing her pelvic floor following a contraction PT-OP-I Pelvic Floor Start: 05/26/19 14:41 Freq: Status: Active Protocol: Document 12/14/19 16:00 [facility] (Rec: 12/21/19 11:23 [facility] [id number]) Pelvic Floor Assessment Pelvic Clock Pelvic Clock 12-3 Guarding Pelvic Clock 3-6 Guarding Pelvic Clock 6-9 Guarding Pelvic Clock 9-12 Guarding Comments Pelvic Floor Comments decreasing guarding of the posterior levator ani. Still very tender with intercourse, She is doing much better overall with improved ability to contract her pelvic floor and sustain a contraction for 10 seconds. SHe is able to relax to 3.4 uv today on EMG biofeedback. No increased pain with contractions x 10 reps PT-OP-J Posture/Palpation/Skin Start: 05/26/19 14:41 Freq: Status: Active Protocol: Document 05/27/19 13:58 [facility] (Rec: 05/27/19 13:59 [facility] [id number]) Palpation Assessment Location Two Palpation Location levator ani Palpation Findings Soft Tissue Tightness,Muscle Guarding,Tenderness One Palpation Location left side of abdominal wall, supra pubic fascia Palpation Findings Soft Tissue Tightness,Muscle Guarding,Tenderness PT-OP-Q Treatments Start: 05/26/19 14:41 Freq: Status: Active Protocol: Document 12/14/19 16:00 [facility] (Rec: 12/21/19 11:13 [facility] [id number]) Therapeutic Exercises Supine Exercises 4 Supine Exercise Name piriformis stretch 2 Supine Exercise Name pelvic floor 10 second hold 10 second relaxation Reps/Minutes x 10 reps Manual Therapy Treatment Soft Tissue Mobilization 4 Body Location posterior gluteal release with pundendal nerve flossing 2 Body Location external pelvic floor diaphragm MFR 1 Body Location ILU abdominal massage Manual Techniques 1 Type manual hip stretches into hip flexion PT-OP-T Assessment and Plan Start: 05/26/19 14:41 Freq: Status: Active Protocol: Document 12/14/19 16:00 [facility] (Rec: 12/21/19 11:13 [facility] [id number]) Physical Therapy Assessment Goals Five Impairment Urinary urgency with nocturia 1-2 xms per night Jail Goal (LTG) Rachel reports decreased c/o urinary urgency and is only waking 1 time or less at night to void Some progress LTG Duration 8 weeks Four Impairment myofascial restrictions and sensitivity to touch over the abdominal fascia Sh[employer] Miner Goal (LTG) Rachel is able to perform self massage over her abdominal wall to help improve fascial mobility, decrease urgency, and improve bowel movements GOOD PROGRESS Improving ability to tolerate any STM over her abdominal wall Three Impairment Decreased endurance of the pelvic floor < 3 sec hold time Short Term Goal (STG) Rachel is able to sustain a pelvic floor contraction without pain x 5 seconds GOAL MET STG Duration 4 weeks [employer]er Goal (LTG) Rachel is able to sustain a pelvic floor contraction without pain for 10 or more seconds GOAL MET LTG Duration 8 weeks Two Impairment Muscle guarding and spasm of the levator ani all parts of the pelvic clock Short Term Goal (STG) Rachel is able to begin working on a home stretching program for pelvic pain and is aware of when she is clenching her pelvic floor at rest Some progress STG Duration 3-4 weeks Jail Goal (LTG) Rachel is able to relax her pelvic floor to 2 uv or less on EMG biofeedback AT TIMES RACHEL IS ABLE TO RELAX TO 2.0 uv LTG Duration 8 weeks One Impairment pelvic pain ranging from 4-9 with intercourse Sh[employer] Miner Goal (LTG) With a PT program for relaxed awareness of the pelvic floor Rachel reports a overall decrease in pelvic pain with intercourse WORKING TOWARDS THIS GOAL LTG Duration 8 weeks Assessment Summary Assessment Rachel returns after not being seen since 10/26/19. She has been out of town the past two weeks and has not been doing her exercises during that time. She reports she is continuing to have pain but that overall it is reduced to 4/10. She has not had time to use the dilator for stretching but plans on returning to her stretches and dilator use. With treatment today she does present with overall decreased tone in her pelvic floor. She is able to sustain a pelvic floor contraction now without pain and can perform 10 reps. Resting tone today was as low as 3.4 uv. Rachel is still experiencing pain with intercourse. She is not experiencing the bleeding that she was prior to treatment. She would benefit from contnued PT. Physical Therapy Plan Frequency and Duration Frequency of Treatment 1x/Week Duration of Treatment 8 weeks Plan of Care Start Date 11/17/19 Plan of Care End Date 01/25/20 Therapeutic Interventions Therapeutic Interventions Balance Training,Gait Training ,Home Exercise Program,Manual Therapy,Neuromuscular Re- education,Patient/Caregiver Education,Self-Care/Home Management,Soft Tissue Mobilization,Taping, Therapeutic Activities, Therapeutic Exercises Modalities Cold Pack/Ice Massage,Electric Stimulation,Hot Packs, Ultrasound Next Visit Focus/Plan Next Note Type Treatment Note Next Visit Plan MFR over the abdominal wall and pelvic floor, EMG down training, yoga stretches for pelivc pain
--- NOTE | 2019-12-21 11:36 | PT.OPPN ---
Current Diagnoses Unspecified dyspareunia (12/14/19) Pelvic and perineal pain (12/14/19) Physical Therapy Progress Note PT-OP-A Visit Information Start: 05/26/19 14:41 Freq: Status: Active Protocol: Document 12/14/19 18:36 [facility] (Rec: 12/16/19 18:36 [facility] [email or web address]) Out-Patient Physical Therapy Visit Information Visit Information Visit Type Treatment Note Visit Start Time 16:00 Visit Stop Time 16:45 Total Visit Minutes 45 Visit Number 13 PT-OP-B Current Condition Start: 05/26/19 14:41 Freq: Status: Active Protocol: Document 05/26/19 14:41 [facility] (Rec: 05/26/19 15:12 [facility] [email or web address]) Current Condition History of Current Condition Onset Date chronic but worsening Current Complaints pelvic pain and bleeding following intercourse,bleeding with bowel movement History of Current Condition symptoms began when she became sexually active but have worsened with time. Rachel reports she was put on the pill when she was 12 as she had such painful periods and painful breasts. She has a hx of ovarian cycts. She does not currently menstruate as she takes the pill straight through her cycle to avoid a painful period. Her pelvic pain has been worsening and she reports a deep internal pain that she describes as centrally located in her pelvic floor. She reports she will bleed heavily following intercourse. She can soak through two tampons in a hour following intercourse. She also reports bleeding following a bowel movements and has hemorrhoids. She has had an exploritory surgery done by Dr. Tian and no endometriosis was found. She has undergone a colonoscopy and this was normal She has a defogram test next week PT-OP-C Subjective Start: 05/26/19 14:41 Freq: Status: Active Protocol: Document 12/14/19 16:00 [facility] (Rec: 12/21/19 11:13 [facility] [id number]) OP-PT Subjective Patient Comments Patient Comments pt reports she has been on vacation and has not been doing her stretches. She does feel and continues to have pelvic pain however this has been reduced to 4/10 at this time. She reports she is no longer experiencing the swollen lymph nodes Patient Reported Progress Improving OP-PT Pain Assessment Location pelvic pain Intensity 4 Scale Used Numeric (1 - 10) Description Acute,Pressure,Sharp,Spasm, Stabbing,Tightness Pain Duration with intercourse, can vary from 4-9 PT-OP-F Manual Assessment Start: 05/26/19 14:41 Freq: Status: Active Protocol: Document 05/26/19 14:41 [facility] (Rec: 05/26/19 15:12 [facility] [email or web address]) Manual Assessments Soft Tissue Assessment Soft Tissue Mobility Assessment tightness left side of the abdominal wall, Rachel does not like the sensation of any manual movement of her abdominal wall or fascial movement over the bladder. She reports it has always felt sensitive in her abdomen. There is tightness across her bladder in the subrapubic fascia. Tightness of the levator ani and difficulty relaxing her pelvic floor following a contraction PT-OP-I Pelvic Floor Start: 05/26/19 14:41 Freq: Status: Active Protocol: Document 12/14/19 16:00 [facility] (Rec: 12/21/19 11:23 [facility] [id number]) Pelvic Floor Assessment Pelvic Clock Pelvic Clock 12-3 Guarding Pelvic Clock 3-6 Guarding Pelvic Clock 6-9 Guarding Pelvic Clock 9-12 Guarding Comments Pelvic Floor Comments decreasing guarding of the posterior levator ani. Still very tender with intercourse, She is doing much better overall with improved ability to contract her pelvic floor and sustain a contraction for 10 seconds. SHe is able to relax to 3.4 uv today on EMG biofeedback. No increased pain with contractions x 10 reps PT-OP-J Posture/Palpation/Skin Start: 05/26/19 14:41 Freq: Status: Active Protocol: Document 05/27/19 13:58 [facility] (Rec: 05/27/19 13:59 [facility] [email or web address]) Palpation Assessment Location Two Palpation Location levator ani Palpation Findings Soft Tissue Tightness,Muscle Guarding,Tenderness One Palpation Location left side of abdominal wall, supra pubic fascia Palpation Findings Soft Tissue Tightness,Muscle Guarding,Tenderness PT-OP-T Assessment and Plan Start: 05/26/19 14:41 Freq: Status: Active Protocol: Document 12/14/19 16:00 [facility] (Rec: 12/21/19 11:13 [facility] [id number]) Physical Therapy Assessment Goals Five Impairment Urinary urgency with nocturia 1-2 xms per night S[employer] Consultant Goal (LTG) Rachel reports decreased c/o urinary urgency and is only waking 1 time or less at night to void Some progress LTG Duration 8 weeks Four Impairment myofascial restrictions and sensitivity to touch over the abdominal fascia Sap Consultant Goal (LTG) Rachel is able to perform self massage over her abdominal wall to help improve fascial mobility, decrease urgency, and improve bowel movements GOOD PROGRESS Improving ability to tolerate any STM over her abdominal wall Three Impairment Decreased endurance of the pelvic floor < 3 sec hold time Short Term Goal (STG) Rachel is able to sustain a pelvic floor contraction without pain x 5 seconds GOAL MET STG Duration 4 weeks Sap Consultant Goal (LTG) Rachel is able to sustain a pelvic floor contraction without pain for 10 or more seconds GOAL MET LTG Duration 8 weeks Two Impairment Muscle guarding and spasm of the levator ani all parts of the pelvic clock Short Term Goal (STG) Rachel is able to begin working on a home stretching program for pelvic pain and is aware of when she is clenching her pelvic floor at rest Some progress STG Duration 3-4 weeks Sap Consultant Goal (LTG) Rachel is able to relax her pelvic floor to 2 uv or less on EMG biofeedback AT TIMES RACHEL IS ABLE TO RELAX TO 2.0 uv LTG Duration 8 weeks One Impairment pelvic pain ranging from 4-9 with intercourse [facility] Goal (LTG) With a PT program for relaxed awareness of the pelvic floor Rachel reports a overall decrease in pelvic pain with intercourse WORKING TOWARDS THIS GOAL LTG Duration 8 weeks Assessment Summary Assessment Rachel returns after not being seen since 10/26/19. She has been out of town the past two weeks and has not been doing her exercises during that time. She reports she is continuing to have pain but that overall it is reduced to 4/10. She has not had time to use the dilator for stretching but plans on returning to her stretches and dilator use. With treatment today she does present with overall decreased tone in her pelvic floor. She is able to sustain a pelvic floor contraction now without pain and can perform 10 reps. Resting tone today was as low as 3.4 uv. Rachel is still experiencing pain with intercourse. She is not experiencing the bleeding that she was prior to treatment. She would benefit from continued PT. Physical Therapy Plan Frequency and Duration Frequency of Treatment 1x/Week Duration of Treatment 8 weeks Plan of Care Start Date 11/17/19 Plan of Care End Date 01/25/20 Therapeutic Interventions Therapeutic Interventions Balance Training,Gait Training ,Home Exercise Program,Manual Therapy,Neuromuscular Re- education,Patient/Caregiver Education,Self-Care/Home Management,Soft Tissue Mobilization,Taping, Therapeutic Activities, Therapeutic Exercises Modalities Cold Pack/Ice Massage,Electric Stimulation,Hot Packs, Ultrasound Next Visit Focus/Plan Next Note Type Treatment Note Next Visit Plan MFR over the abdominal wall and pelvic floor, EMG down training, yoga stretches for pelivc pain
--- NOTE | 2019-12-21 11:37 | PT.OPPOC ---
Physical, Occupational & Speech Therapy At [facility] Current Diagnoses Unspecified dyspareunia (12/14/19) Pelvic and perineal pain (12/14/19) Visit Care Team Role Provider Type Susana Bejarano MD Primary Care Provider Physician Specialty: Family Practice Address: [address] [place] [address], [id number] Email: [email or web address] Lisseth Tian MD Attending Provider Physician Specialty: COLLISION REPAIR TECHNICIAN Address: [address] [place] [address], [address] Email: [email or web address] Plan Of Care PT-OP-T Assessment and Plan Start: 05/26/19 14:41 Freq: Status: Active Protocol: Document 12/14/19 16:00 [facility] (Rec: 12/21/19 11:13 [facility] [id number]) Physical Therapy Assessment Goals Five Impairment Urinary urgency with nocturia 1-2 xms per night Care Home Goal (LTG) Marie reports decreased c/o urinary urgency and is only waking 1 time or less at night to void Some progress LTG Duration 8 weeks Four Impairment myofascial restrictions and sensitivity to touch over the abdominal fascia Care Home Goal (LTG) Marie is able to perform self massage over her abdominal wall to help improve fascial mobility, decrease urgency, and improve bowel movements GOOD PROGRESS Improving ability to tolerate any STM over her abdominal wall Three Impairment Decreased endurance of the pelvic floor < 3 sec hold time Short Term Goal (STG) Marie is able to sustain a pelvic floor contraction without pain x 5 seconds GOAL MET STG Duration 4 weeks Event Specialist Goal (LTG) Marie is able to sustain a pelvic floor contraction without pain for 10 or more seconds GOAL MET LTG Duration 8 weeks Two Impairment Muscle guarding and spasm of the levator ani all parts of the pelvic clock Short Term Goal (STG) Marie is able to begin working on a home stretching program for pelvic pain and is aware of when she is clenching her pelvic floor at rest Some progress STG Duration 3-4 weeks Event Specialist Goal (LTG) Marie is able to relax her pelvic floor to 2 uv or less on EMG biofeedback AT TIMES MARIE IS ABLE TO RELAX TO 2.0 uv LTG Duration 8 weeks One Impairment pelvic pain ranging from 4-9 with intercourse Event Specialist Goal (LTG) With a PT program for relaxed awareness of the pelvic floor Marie reports a overall decrease in pelvic pain with intercourse WORKING TOWARDS THIS GOAL LTG Duration 8 weeks Assessment Summary Assessment Marie returns after not being seen since 10/26/19. She has been out of town the past two weeks and has not been doing her exercises during that time. She reports she is continuing to have pain but that overall it is reduced to 4/10. She has not had time to use the dilator for stretching but plans on returning to her stretches and dilator use. With treatment today she does present with overall decreased tone in her pelvic floor. She is able to sustain a pelvic floor contraction now without pain and can perform 10 reps. Resting tone today was as low as 3.4 uv. Marie is still experiencing pain with intercourse. She is not experiencing the bleeding that she was prior to treatment. She would benefit from continued PT. Physical Therapy Plan Frequency and Duration Frequency of Treatment 1x/Week Duration of Treatment 8 weeks Plan of Care Start Date 11/17/19 Plan of Care End Date 01/25/20 Therapeutic Interventions Therapeutic Interventions Balance Training,Gait Training ,Home Exercise Program,Manual Therapy,Neuromuscular Re- education,Patient/Caregiver Education,Self-Care/Home Management,Soft Tissue Mobilization,Taping, Therapeutic Activities, Therapeutic Exercises Modalities Cold Pack/Ice Massage,Electric Stimulation,Hot Packs, Ultrasound Next Visit Focus/Plan Next Note Type Treatment Note Next Visit Plan MFR over the abdominal wall and pelvic floor, EMG down training, yoga stretches for pelvic pain Plan of Care Dates Plan of Care Start Date 11/17/19 Plan of Care End Date 01/25/20 Electronically Signed by: Carey Bonner, PT 12/21/19 [id number] Please Sign and Return: I have reviewed this Plan of Care and certify that the skilled therapy services above are required to meet the patient?s needs. Physician Signature Date Printed Name and Credentials Clinical Instructor Signature Printed Name and Credentials
--- NOTE | 2020-04-18 18:08 | PT.OTN ---
Current Diagnoses Unspecified dyspareunia (04/18/20) Pelvic and perineal pain (04/18/20) Physical Therapy Treatment Note PT-OP-A Visit Information Start: 05/26/19 14:41 Freq: Status: Active Protocol: Document 04/12/20 09:46 [facility] (Rec: 04/12/20 09:51 [facility] [id number]) Out-Patient Physical Therapy Visit Information Visit Information Visit Type Progress Note Visit Start Time 09:45 Visit Stop Time 10:30 Total Visit Minutes 45 Visit Number 14 PT-OP-B Current Condition Start: 05/26/19 14:41 Freq: Status: Active Protocol: Document 05/26/19 14:41 [facility] (Rec: 05/26/19 15:12 [facility] [id number]) Current Condition History of Current Condition Onset Date chronic but worsening Current Complaints pelvic pain and bleeding following intercourse,bleeding with bowel movement History of Current Condition symptoms began when she became sexually active but have worsened with time. Rachel reports she was put on the pill when she was 12 as she had such painful periods and painful breasts. She has a hx of ovarian cycts. She does not currently menstruate as she takes the pill straight through her cycle to avoid a painful period. Her pelvic pain has been worsening and she reports a deep internal pain that she describes as centrally located in her pelvic floor. She reports she will bleed heavily following intercourse. She can soak through two tampons in a hour following intercourse. She also reports bleeding following a bowel movements and has hemorrhoids. She has had an exploritory surgery done by Dr. Tian and no endometriosis was found. She has undergone a colonoscopy and this was normal She has a defogram test next week PT-OP-C Subjective Start: 05/26/19 14:41 Freq: Status: Active Protocol: Document 04/12/20 09:46 [facility] (Rec: 04/12/20 09:51 [facility] [id number]) OP-PT Subjective Patient Comments Patient Comments Rachel states she is voiding 5 times per night again, she has been doing her stretches and has been using the dilator , but continues to feel a general tightness all the time . Feels tight walking and notices it more that way. Was feeling good with treatment back in December but now it has returned. She feels she is at a 6/10 now and sometimes it can be a 10 PT-OP-F Manual Assessment Start: 05/26/19 14:41 Freq: Status: Active Protocol: Document 04/12/20 09:45 [facility] (Rec: 04/18/20 17:54 [facility] [id number]) Manual Assessments Soft Tissue Assessment Soft Tissue Mobility Assessment tightness left side of the abdominal wall, Rachel is able to tolerate MFR over her abdominal wall now and this is not as tight as it was back in October. There is tightness across her bladder in the subrapubic fascia. Tightness of the levator ani and difficulty relaxing her pelvic floor following a contraction PT-OP-I Pelvic Floor Start: 05/26/19 14:41 Freq: Status: Active Protocol: Document 12/14/19 16:00 [facility] (Rec: 12/21/19 11:23 [facility] [id number]) Pelvic Floor Assessment Pelvic Clock Pelvic Clock 12-3 Guarding Pelvic Clock 3-6 Guarding Pelvic Clock 6-9 Guarding Pelvic Clock 9-12 Guarding Comments Pelvic Floor Comments decreasing guarding of the posterior levator ani. Still very tender with intercourse, She is doing much better overall with improved ability to contract her pelvic floor and sustain a contraction for 10 seconds. SHe is able to relax to 3.4 uv today on EMG biofeedback. No increased pain with contractions x 10 reps PT-OP-J Posture/Palpation/Skin Start: 05/26/19 14:41 Freq: Status: Active Protocol: Document 05/27/19 13:58 [facility] (Rec: 05/27/19 13:59 [facility] [id number]) Palpation Assessment Location Two Palpation Location levator ani Palpation Findings Soft Tissue Tightness,Muscle Guarding,Tenderness One Palpation Location left side of abdominal wall, supra pubic fascia Palpation Findings Soft Tissue Tightness,Muscle Guarding,Tenderness PT-OP-Q Treatments Start: 05/26/19 14:41 Freq: Status: Active Protocol: Document 04/12/20 09:45 [facility] (Rec: 04/18/20 17:54 [facility] [id number]) Therapeutic Exercises Supine Exercises 7 Supine Exercise Name hamstring stretch with strap 6 Supine Exercise Name adductor stretch with strap Manual Therapy Treatment Soft Tissue Mobilization 5 Body Location adductor release 4 Body Location posterior gluteal release with pundendal nerve flossing 3 Body Location internal release of the illiococcygeus bilaterally 2 Body Location external pelvic floor diaphragm MFR 1 Body Location ILU abdominal massage PT-OP-T Assessment and Plan Start: 05/26/19 14:41 Freq: Status: Active Protocol: Document 04/12/20 09:51 [facility] (Rec: 04/12/20 10:40 [facility] [id number]) Physical Therapy Assessment Goals Five Impairment Urinary urgency with nocturia 1-2 xms per night Shelter Goal (LTG) Rachel reports decreased c/o urinary urgency and is only waking 1 time or less at night to void Some progress LTG Duration 8 weeks Four Impairment myofascial restrictions and sensitivity to touch over the abdominal fascia Shelter Goal (LTG) Rachel is able to perform self massage over her abdominal wall to help improve fascial mobility, decrease urgency, and improve bowel movements GOOD PROGRESS Improving ability to tolerate any STM over her abdominal wall Three Impairment Decreased endurance of the pelvic floor < 3 sec hold time Short Term Goal (STG) Rachel is able to sustain a pelvic floor contraction without pain x 5 seconds GOAL MET STG Duration 4 weeks Shelter Goal (LTG) Rachel is able to sustain a pelvic floor contraction without pain for 10 or more seconds GOAL MET LTG Duration 8 weeks Two Impairment Muscle guarding and spasm of the levator ani all parts of the pelvic clock Short Term Goal (STG) Rachel is able to begin working on a home stretching program for pelvic pain and is aware of when she is clenching her pelvic floor at rest Some progress STG Duration 3-4 weeks Shelter Goal (LTG) Rachel is able to relax her pelvic floor to 2 uv or less on EMG biofeedback AT TIMES RACHEL IS ABLE TO RELAX TO 2.0 uv LTG Duration 8 weeks One Impairment pelvic pain ranging from 4-9 with intercourse Shelter Goal (LTG) With a PT program for relaxed awareness of the pelvic floor Rachel reports a overall decrease in pelvic pain with intercourse As of 04/12/20 pt has not been intimate with her due to pain symptoms LTG Duration 8 weeks Assessment Summary Assessment Rachel returns to PT today after not being seen since December 13 due to the covid 19 pandemic. She reports she has a compromised immune system and didn't feel comfortable with visits until now. She reports she was doing really well on her own for a while but then gradually her symptoms returned and now she is voiding up to 5 times at night again and feeling a lot of pelvic pain expecially with walking activities. Today we reviewed her stretches and I worked on tissue release throughout the abdominal wall, adductors, and pelvic floor. She is guarded more on the left levator ani then right. I did give her a size medium dilator for self trigger point release today. Rachel would like to continue PT and I feel she would benefit from continued visits. Physical Therapy Plan Frequency and Duration Frequency of Treatment 2xms/week Duration of Treatment 8 weeks Plan of Care Start Date 04/12/20 Plan of Care End Date 06/07/20 Therapeutic Interventions Therapeutic Interventions Home Exercise Program,Manual Therapy,Neuromuscular Re- education,Patient/Caregiver Education,Self-Care/Home Management,Soft Tissue Mobilization,Therapeutic Exercises Next Visit Focus/Plan Next Note Type Treatment Note Next Visit Plan MFR over the abdominal wall and pelvic floor, EMG down training, yoga stretches for pelivc pain
--- NOTE | 2020-04-18 18:08 | PT.OPPOC ---
Physical, Occupational & Speech Therapy At [facility] Current Diagnoses Unspecified dyspareunia (04/18/20) Pelvic and perineal pain (04/18/20) Visit Care Team Role Provider Type Susana Bejarano MD Primary Care Provider Physician Specialty: Family Practice Address: [address] [place] [address], [id number] Email: [email or web address] Lsiseth Tian MD Attending Provider Physician Specialty: INSTRUCTIONAL TECHNOLOGY COACH Address: [address] [place] [address], [id number] Email: [email or web address] Plan Of Care PT-OP-T Assessment and Plan Start: 05/26/19 14:41 Freq: Status: Active Protocol: Document 04/12/20 09:51 [facility] (Rec: 04/12/20 10:40 [facility] [id number]) Physical Therapy Assessment Goals Five Impairment Urinary urgency with nocturia 1-2 xms per night Route Agent Goal (LTG) Marie reports decreased c/o urinary urgency and is only waking 1 time or less at night to void Some progress LTG Duration 8 weeks Four Impairment myofascial restrictions and sensitivity to touch over the abdominal fascia Route Agent Goal (LTG) Marie is able to perform self massage over her abdominal wall to help improve fascial mobility, decrease urgency, and improve bowel movements GOOD PROGRESS Improving ability to tolerate any STM over her abdominal wall Three Impairment Decreased endurance of the pelvic floor < 3 sec hold time Short Term Goal (STG) Marie is able to sustain a pelvic floor contraction without pain x 5 seconds GOAL MET STG Duration 4 weeks Route Agent Goal (LTG) Marie is able to sustain a pelvic floor contraction without pain for 10 or more seconds GOAL MET LTG Duration 8 weeks Two Impairment Muscle guarding and spasm of the levator ani all parts of the pelvic clock Short Term Goal (STG) Marie is able to begin working on a home stretching program for pelvic pain and is aware of when she is clenching her pelvic floor at rest Some progress STG Duration 3-4 weeks Route Agent Goal (LTG) Marie is able to relax her pelvic floor to 2 uv or less on EMG biofeedback AT TIMES MARIE IS ABLE TO RELAX TO 2.0 uv LTG Duration 8 weeks One Impairment pelvic pain ranging from 4-9 with intercourse Custodial Goal (LTG) With a PT program for relaxed awareness of the pelvic floor Marie reports a overall decrease in pelvic pain with intercourse As of 04/12/20 pt has not been intimate with her due to pain symptoms LTG Duration 8 weeks Assessment Summary Assessment Marie returns to PT today after not being seen since December 13 due to the covid 19 pandemic. She reports she has a compromised immune system and didn't feel comfortable with visits until now. She reports she was doing really well on her own for a while but then gradually her symptoms returned and now she is voiding up to 5 times at night again and feeling a lot of pelvic pain especially with walking activities. Today we reviewed her stretches and I worked on tissue release throughout the abdominal wall, adductors, and pelvic floor. She is guarded more on the left levator ani then right. I did give her a size medium dilator for self trigger point release today. Marie would like to continue PT and I feel she would benefit from continued visits. Physical Therapy Plan Frequency and Duration Frequency of Treatment 2xms/week Duration of Treatment 8 weeks Plan of Care Start Date 04/12/20 Plan of Care End Date 06/07/20 Therapeutic Interventions Therapeutic Interventions Home Exercise Program,Manual Therapy,Neuromuscular Re- education,Patient/Caregiver Education,Self-Care/Home Management,Soft Tissue Mobilization,Therapeutic Exercises Next Visit Focus/Plan Next Note Type Treatment Note Next Visit Plan MFR over the abdominal wall and pelvic floor, EMG down training, yoga stretches for pelvic pain Plan of Care Dates Plan of Care Start Date 04/12/20 Plan of Care End Date 06/07/20 Electronically Signed by: Carey Bonner, PT 04/18/20 [id number] Please Sign and Return: I have reviewed this Plan of Care and certify that the skilled therapy services above are required to meet the patient?s needs. Physician Signature Date Printed Name and Credentials Clinical Instructor Signature Printed Name and Credentials
--- NOTE | 2020-04-18 18:12 | PT.OTN ---
Current Diagnoses Unspecified dyspareunia (04/18/20) Pelvic and perineal pain (04/18/20) Physical Therapy Treatment Note PT-OP-A Visit Information Start: 05/26/19 14:41 Freq: Status: Active Protocol: Document 04/12/20 09:46 [facility] (Rec: 04/12/20 09:51 [facility] [id number]) Out-Patient Physical Therapy Visit Information Visit Information Visit Type Progress Note Visit Start Time 09:45 Visit Stop Time 10:30 Total Visit Minutes 45 Visit Number 14 PT-OP-B Current Condition Start: 05/26/19 14:41 Freq: Status: Active Protocol: Document 05/26/19 14:41 [facility] (Rec: 05/26/19 15:12 [facility] [email or web address]) Current Condition History of Current Condition Onset Date chronic but worsening Current Complaints pelvic pain and bleeding following intercourse,bleeding with bowel movement History of Current Condition symptoms began when she became sexually active but have worsened with time. Marie reports she was put on the pill when she was 12 as she had such painful periods and painful breasts. She has a hx of ovarian cysts. She does not currently menstruate as she takes the pill straight through her cycle to avoid a painful period. Her pelvic pain has been worsening and she reports a deep internal pain that she describes as centrally located in her pelvic floor. She reports she will bleed heavily following intercourse. She can soak through two tampons in a hour following intercourse. She also reports bleeding following a bowel movements and has hemorrhoids. She has had an exploritory surgery done by Dr. Tian and no endometriosis was found. She has undergone a colonoscopy and this was normal She has a defogram test next week PT-OP-C Subjective Start: 05/26/19 14:41 Freq: Status: Active Protocol: Document 04/12/20 09:46 [facility] (Rec: 04/12/20 09:51 [facility] [id number]) OP-PT Subjective Patient Comments Patient Comments Marie states she is voiding 5 times per night again, she has been doing her stretches and has been using the dilator , but continues to feel a general tightness all the time . Feels tight walking and notices it more that way. Was feeling good with treatment back in December but now it has returned. She feels she is at a 6/10 now and sometimes it can be a 10 PT-OP-F Manual Assessment Start: 05/26/19 14:41 Freq: Status: Active Protocol: Document 04/12/20 09:45 [facility] (Rec: 04/18/20 17:54 [facility] [id number]) Manual Assessments Soft Tissue Assessment Soft Tissue Mobility Assessment tightness left side of the abdominal wall, Marie is able to tolerate MFR over her abdominal wall now and this is not as tight as it was back in October. There is tightness across her bladder in the subrapubic fascia. Tightness of the levator ani and difficulty relaxing her pelvic floor following a contraction PT-OP-I Pelvic Floor Start: 05/26/19 14:41 Freq: Status: Active Protocol: Document 12/14/19 16:00 [facility] (Rec: 12/21/19 11:23 [facility] [id number]) Pelvic Floor Assessment Pelvic Clock Pelvic Clock 12-3 Guarding Pelvic Clock 3-6 Guarding Pelvic Clock 6-9 Guarding Pelvic Clock 9-12 Guarding Comments Pelvic Floor Comments decreasing guarding of the posterior levator ani. Still very tender with intercourse, She is doing much better overall with improved ability to contract her pelvic floor and sustain a contraction for 10 seconds. SHe is able to relax to 3.4 uv today on EMG biofeedback. No increased pain with contractions x 10 reps PT-OP-J Posture/Palpation/Skin Start: 05/26/19 14:41 Freq: Status: Active Protocol: Document 05/27/19 13:58 [facility] (Rec: 05/27/19 13:59 [facility] [email or web address]) Palpation Assessment Location Two Palpation Location levator ani Palpation Findings Soft Tissue Tightness,Muscle Guarding,Tenderness One Palpation Location left side of abdominal wall, supra pubic fascia Palpation Findings Soft Tissue Tightness,Muscle Guarding,Tenderness PT-OP-Q Treatments Start: 05/26/19 14:41 Freq: Status: Active Protocol: Document 04/18/20 18:10 [facility] (Rec: 04/18/20 18:12 [facility] [id number]) Manual Therapy Treatment Soft Tissue Mobilization 5 Body Location adductor release 4 Body Location posterior gluteal release with pundendal nerve flossing 3 Body Location internal release of the illiococcygeus bilaterally 2 Body Location external pelvic floor diaphragm MFR 1 Body Location ILU abdominal massage Manual Techniques 1 Type manual hip stretches into hip flexion PT-OP-T Assessment and Plan Start: 05/26/19 14:41 Freq: Status: Active Protocol: Document 04/18/20 18:10 [facility] (Rec: 04/18/20 18:12 [facility] [id number]) Physical Therapy Assessment Assessment Summary Assessment Marie reports she did much better with her voiding following last visit and didn' t feel that she had to get up as many times at night to void . Physical Therapy Plan Frequency and Duration Frequency of Treatment 2xms/week Duration of Treatment 8 weeks Plan of Care Start Date 04/12/20 Plan of Care End Date 06/07/20 Therapeutic Interventions Therapeutic Interventions Home Exercise Program,Manual Therapy,Neuromuscular Re- education,Patient/Caregiver Education,Self-Care/Home Management,Soft Tissue Mobilization,Therapeutic Exercises Next Visit Focus/Plan Next Note Type Treatment Note Next Visit Plan return to EMG biofeedback for down training, MFR techniques to continue to encourage muscle relaxation, assess the urogenital triangle next visit
--- NOTE | 2020-04-22 15:03 | PT.OTN ---
Current Diagnoses Unspecified dyspareunia (04/20/20) Pelvic and perineal pain (04/20/20) Physical Therapy Treatment Note PT-OP-A Visit Information Start: 05/26/19 14:41 Freq: Status: Active Protocol: Document 04/20/20 11:15 [facility] (Rec: 04/22/20 15:03 [facility] [email or web address]) Out-Patient Physical Therapy Visit Information Visit Information Visit Type Treatment Note Visit Start Time 11:15 Visit Stop Time 12:00 Total Visit Minutes 45 Visit Number 16 PT-OP-B Current Condition Start: 05/26/19 14:41 Freq: Status: Active Protocol: Document 05/26/19 14:41 [facility] (Rec: 05/26/19 15:12 [facility] [email or web address]) Current Condition History of Current Condition Onset Date chronic but worsening Current Complaints pelvic pain and bleeding following intercourse,bleeding with bowel movement History of Current Condition symptoms began when she became sexually active but have worsened with time. Marie reports she was put on the pill when she was 12 as she had such painful periods and painful breasts. She has a hx of ovarian cycts. She does not currently menstruate as she takes the pill straight through her cycle to avoid a painful period. Her pelvic pain has been worsening and she reports a deep internal pain that she describes as centrally located in her pelvic floor. She reports she will bleed heavily following intercourse. She can soak through two tampons in a hour following intercourse. She also reports bleeding following a bowel movements and has hemorrhoids. She has had an exploritory surgery done by Dr. Tian and no endometriosis was found. She has undergone a colonoscopy and this was normal She has a defogram test next week PT-OP-C Subjective Start: 05/26/19 14:41 Freq: Status: Active Protocol: Document 04/20/20 11:22 [facility] (Rec: 04/20/20 11:24 [facility] [id number]) OP-PT Subjective Patient Comments Patient Comments Pt notes treatment didnt hurt as much as the time before , last night voiding was 3 times . She was also camping last night PT-OP-F Manual Assessment Start: 05/26/19 14:41 Freq: Status: Active Protocol: Document 04/12/20 09:45 [facility] (Rec: 04/18/20 17:54 [facility] [id number]) Manual Assessments Soft Tissue Assessment Soft Tissue Mobility Assessment tightness left side of the abdominal wall, Marie is able to tolerate MFR over her abdominal wall now and this is not as tight as it was back in October. There is tightness across her bladder in the subrapubic fascia. Tightness of the levator ani and difficulty relaxing her pelvic floor following a contraction PT-OP-I Pelvic Floor Start: 05/26/19 14:41 Freq: Status: Active Protocol: Document 12/14/19 16:00 [facility] (Rec: 12/21/19 11:23 [facility] [id number]) Pelvic Floor Assessment Pelvic Clock Pelvic Clock 12-3 Guarding Pelvic Clock 3-6 Guarding Pelvic Clock 6-9 Guarding Pelvic Clock 9-12 Guarding Comments Pelvic Floor Comments decreasing guarding of the posterior levator ani. Still very tender with intercourse, She is doing much better overall with improved ability to contract her pelvic floor and sustain a contraction for 10 seconds. SHe is able to relax to 3.4 uv today on EMG biofeedback. No increased pain with contractions x 10 reps PT-OP-J Posture/Palpation/Skin Start: 05/26/19 14:41 Freq: Status: Active Protocol: Document 05/27/19 13:58 [facility] (Rec: 05/27/19 13:59 [facility] [email or web address]) Palpation Assessment Location Two Palpation Location levator ani Palpation Findings Soft Tissue Tightness,Muscle Guarding,Tenderness One Palpation Location left side of abdominal wall, supra pubic fascia Palpation Findings Soft Tissue Tightness,Muscle Guarding,Tenderness PT-OP-Q Treatments Start: 05/26/19 14:41 Freq: Status: Active Protocol: Document 04/20/20 11:15 [facility] (Rec: 04/22/20 15:03 [facility] [email or web address]) Manual Therapy Treatment Soft Tissue Mobilization transverse perineal release Body Location transverse perineal release B 5 Body Location adductor release 4 Body Location posterior gluteal release with pundendal nerve flossing 3 Body Location internal release of the illiococcygeus bilaterally 2 Body Location external pelvic floor diaphragm MFR 1 Body Location ILU abdominal massage Manual Techniques 1 Type manual hip stretches into hip flexion PT-OP-T Assessment and Plan Start: 05/26/19 14:41 Freq: Status: Active Protocol: Document 04/20/20 11:15 [facility] (Rec: 04/22/20 15:03 [facility] [email or web address]) Physical Therapy Assessment Assessment Summary Assessment Decreased tension in both the abdominal wall and right adductors today, guarding noted in the transverse perineal muscles on the right with some reproduction of symptoms. Marie has started doing more stretching at home and feeling this is helpful. Physical Therapy Plan Frequency and Duration Frequency of Treatment 2xms/week Duration of Treatment 8 weeks Plan of Care Start Date 04/12/20 Plan of Care End Date 06/07/20 Next Visit Focus/Plan Next Note Type Treatment Note Next Visit Plan return to EMG biofeedback for down training, MFR techniques to continue to encourage muscle relaxation, assess the urogenital triangle next visit
--- NOTE | 2020-04-25 17:57 | PT.OTN ---
Current Diagnoses Unspecified dyspareunia (04/25/20) Pelvic and perineal pain (04/25/20) Physical Therapy Treatment Note PT-OP-A Visit Information Start: 05/26/19 14:41 Freq: Status: Active Protocol: Document 04/25/20 17:41 [facility] (Rec: 04/25/20 17:57 [facility] [id number]) Out-Patient Physical Therapy Visit Information Visit Information Visit Type Treatment Note Visit Start Time 09:45 Visit Stop Time 10:30 Total Visit Minutes 45 Visit Number 17 PT-OP-B Current Condition Start: 05/26/19 14:41 Freq: Status: Active Protocol: Document 05/26/19 14:41 [facility] (Rec: 05/26/19 15:12 [facility] [email or web address]) Current Condition History of Current Condition Onset Date chronic but worsening Current Complaints pelvic pain and bleeding following intercourse,bleeding with bowel movement History of Current Condition symptoms began when she became sexually active but have worsened with time. Marie reports she was put on the pill when she was 12 as she had such painful periods and painful breasts. She has a hx of ovarian cycts. She does not currently menstruate as she takes the pill straight through her cycle to avoid a painful period. Her pelvic pain has been worsening and she reports a deep internal pain that she describes as centrally located in her pelvic floor. She reports she will bleed heavily following intercourse. She can soak through two tampons in a hour following intercourse. She also reports bleeding following a bowel movements and has hemorrhoids. She has had an exploritory surgery done by Dr. Tian and no endometriosis was found. She has undergone a colonoscopy and this was normal She has a defogram test next week PT-OP-C Subjective Start: 05/26/19 14:41 Freq: Status: Active Protocol: Document 04/25/20 09:48 [facility] (Rec: 04/25/20 09:49 [facility] [id number]) OP-PT Subjective Patient Comments Patient Comments Marie reports she feels looser in her abdominal region and felt thepelvic floor release last visit was helpful . Patient Reported Progress Improving PT-OP-F Manual Assessment Start: 05/26/19 14:41 Freq: Status: Active Protocol: Document 04/12/20 09:45 [facility] (Rec: 04/18/20 17:54 [facility] [id number]) Manual Assessments Soft Tissue Assessment Soft Tissue Mobility Assessment tightness left side of the abdominal wall, Marie is able to tolerate MFR over her abdominal wall now and this is not as tight as it was back in October. There is tightness across her bladder in the subrapubic fascia. Tightness of the levator ani and difficulty relaxing her pelvic floor following a contraction PT-OP-I Pelvic Floor Start: 05/26/19 14:41 Freq: Status: Active Protocol: Document 12/14/19 16:00 [facility] (Rec: 12/21/19 11:23 [facility] [id number]) Pelvic Floor Assessment Pelvic Clock Pelvic Clock 12-3 Guarding Pelvic Clock 3-6 Guarding Pelvic Clock 6-9 Guarding Pelvic Clock 9-12 Guarding Comments Pelvic Floor Comments decreasing guarding of the posterior levator ani. Still very tender with intercourse, She is doing much better overall with improved ability to contract her pelvic floor and sustain a contraction for 10 seconds. SHe is able to relax to 3.4 uv today on EMG biofeedback. No increased pain with contractions x 10 reps PT-OP-J Posture/Palpation/Skin Start: 05/26/19 14:41 Freq: Status: Active Protocol: Document 05/27/19 13:58 [facility] (Rec: 05/27/19 13:59 [facility] [email or web address]) Palpation Assessment Location Two Palpation Location levator ani Palpation Findings Soft Tissue Tightness,Muscle Guarding,Tenderness One Palpation Location left side of abdominal wall, supra pubic fascia Palpation Findings Soft Tissue Tightness,Muscle Guarding,Tenderness PT-OP-Q Treatments Start: 05/26/19 14:41 Freq: Status: Active Protocol: Document 04/25/20 17:41 [facility] (Rec: 04/25/20 17:57 [facility] [id number]) Therapeutic Exercises Supine Exercises pt given foam roll stretch to open up the chest Supine Exercise Name foam roll stretch in supine 8 Supine Exercise Name diaphragmatic breathing Reps/Minutes in supine x 6 reps Manual Therapy Treatment Soft Tissue Mobilization transverse perineal release Body Location transverse perineal release B Comments pt very sore in bilateral transverse perineal musculature today 5 Body Location adductor release 4 Body Location posterior gluteal release with pundendal nerve flossing 3 Body Location internal release of the illiococcygeus bilaterally 2 Body Location external pelvic floor diaphragm MFR 1 Body Location ILU abdominal massage PT-OP-T Assessment and Plan Start: 05/26/19 14:41 Freq: Status: Active Protocol: Document 04/25/20 17:41 [facility] (Rec: 04/25/20 17:57 [facility] [id number]) Physical Therapy Assessment Assessment Summary Assessment worked on diaphragmatic breathing today to help relax the pelvic floor Marie has not yet been able to initiate pelvic floor contractions but working with the diaphraghm can help with pelvic rhythm Physical Therapy Plan Frequency and Duration Frequency of Treatment 2xms/week Duration of Treatment 8 weeks Plan of Care Start Date 04/12/20 Plan of Care End Date 06/07/20 Therapeutic Interventions Therapeutic Interventions Home Exercise Program,Manual Therapy,Neuromuscular Re- education,Patient/Caregiver Education,Self-Care/Home Management,Soft Tissue Mobilization,Therapeutic Exercises Next Visit Focus/Plan Next Note Type Treatment Note Next Visit Plan begin with 1/2 foam roll stretch, review new yoga positions for pelvic pain, MFR techniques
--- NOTE | 2020-05-02 17:55 | PT.OTN ---
Current Diagnoses Unspecified dyspareunia (05/02/20) Pelvic and perineal pain (05/02/20) Physical Therapy Treatment Note PT-OP-A Visit Information Start: 05/26/19 14:41 Freq: Status: Active Protocol: Document 05/02/20 16:01 [facility] (Rec: 05/02/20 16:06 [facility] [id number]) Out-Patient Physical Therapy Visit Information Visit Information Visit Type Treatment Note Visit Start Time 16:00 Visit Stop Time 16:45 Total Visit Minutes 45 Visit Number 18 PT-OP-B Current Condition Start: 05/26/19 14:41 Freq: Status: Active Protocol: Document 05/26/19 14:41 [facility] (Rec: 05/26/19 15:12 [facility] [email or web address]) Current Condition History of Current Condition Onset Date chronic but worsening Current Complaints pelvic pain and bleeding following intercourse,bleeding with bowel movement History of Current Condition symptoms began when she became sexually active but have worsened with time. Marie reports she was put on the pill when she was 12 as she had such painful periods and painful breasts. She has a hx of ovarian cycts. She does not currently menstruate as she takes the pill straight through her cycle to avoid a painful period. Her pelvic pain has been worsening and she reports a deep internal pain that she describes as centrally located in her pelvic floor. She reports she will bleed heavily following intercourse. She can soak through two tampons in a hour following intercourse. She also reports bleeding following a bowel movements and has hemorrhoids. She has had an exploritory surgery done by Dr. Tian and no endometriosis was found. She has undergone a colonoscopy and this was normal She has a defogram test next week PT-OP-C Subjective Start: 05/26/19 14:41 Freq: Status: Active Protocol: Document 05/02/20 16:01 [facility] (Rec: 05/02/20 16:06 [facility] [id number]) OP-PT Subjective Patient Comments Patient Comments Has a infection again in her lymph nodes, doing better with her voiding. PT-OP-F Manual Assessment Start: 05/26/19 14:41 Freq: Status: Active Protocol: Document 04/12/20 09:45 [facility] (Rec: 04/18/20 17:54 [facility] [id number]) Manual Assessments Soft Tissue Assessment Soft Tissue Mobility Assessment tightness left side of the abdominal wall, Marie is able to tolerate MFR over her abdominal wall now and this is not as tight as it was back in October. There is tightness across her bladder in the subrapubic fascia. Tightness of the levator ani and difficulty relaxing her pelvic floor following a contraction PT-OP-I Pelvic Floor Start: 05/26/19 14:41 Freq: Status: Active Protocol: Document 12/14/19 16:00 [facility] (Rec: 12/21/19 11:23 [facility] [id number]) Pelvic Floor Assessment Pelvic Clock Pelvic Clock 12-3 Guarding Pelvic Clock 3-6 Guarding Pelvic Clock 6-9 Guarding Pelvic Clock 9-12 Guarding Comments Pelvic Floor Comments decreasing guarding of the posterior levator ani. Still very tender with intercourse, She is doing much better overall with improved ability to contract her pelvic floor and sustain a contraction for 10 seconds. SHe is able to relax to 3.4 uv today on EMG biofeedback. No increased pain with contractions x 10 reps PT-OP-J Posture/Palpation/Skin Start: 05/26/19 14:41 Freq: Status: Active Protocol: Document 05/27/19 13:58 [facility] (Rec: 05/27/19 13:59 [facility] [email or web address]) Palpation Assessment Location Two Palpation Location levator ani Palpation Findings Soft Tissue Tightness,Muscle Guarding,Tenderness One Palpation Location left side of abdominal wall, supra pubic fascia Palpation Findings Soft Tissue Tightness,Muscle Guarding,Tenderness PT-OP-Q Treatments Start: 05/26/19 14:41 Freq: Status: Active Protocol: Document 05/02/20 17:51 [facility] (Rec: 05/02/20 17:55 [facility] [email or web address]) Manual Therapy Treatment Soft Tissue Mobilization 5 Body Location adductor release 4 Body Location posterior gluteal release with pundendal nerve flossing 1 Body Location ILU abdominal massage PT-OP-T Assessment and Plan Start: 05/26/19 14:41 Freq: Status: Active Protocol: Document 05/02/20 17:51 [facility] (Rec: 05/02/20 17:55 [facility] [email or web address]) Physical Therapy Assessment Assessment Summary Assessment due to Marie's lymph infection we stuck to working just in her abdominal region and adductors today and held off on the pelvic floor. She has been doing good with her stretches at home and trying to walk daily for exercise Physical Therapy Plan Frequency and Duration Frequency of Treatment 2xms/week Duration of Treatment 8 weeks Plan of Care Start Date 04/12/20 Plan of Care End Date 06/07/20
--- NOTE | 2020-05-25 12:38 | PT.OTN ---
Current Diagnoses Unspecified dyspareunia (05/25/20) Pelvic and perineal pain (05/25/20) Physical Therapy Treatment Note PT-OP-A Visit Information Start: 05/26/19 14:41 Freq: Status: Active Protocol: Document 05/25/20 09:07 [facility] (Rec: 05/25/20 09:08 [facility] [email or web address]) Out-Patient Physical Therapy Visit Information Visit Information Visit Type Treatment Note Visit Start Time 09:00 Visit Stop Time 09:45 Total Visit Minutes 45 Visit Number 19 PT-OP-B Current Condition Start: 05/26/19 14:41 Freq: Status: Active Protocol: Document 05/26/19 14:41 [facility] (Rec: 05/26/19 15:12 [facility] [email or web address]) Current Condition History of Current Condition Onset Date chronic but worsening Current Complaints pelvic pain and bleeding following intercourse,bleeding with bowel movement History of Current Condition symptoms began when she became sexually active but have worsened with time. Marie reports she was put on the pill when she was 12 as she had such painful periods and painful breasts. She has a hx of ovarian cycts. She does not currently menstruate as she takes the pill straight through her cycle to avoid a painful period. Her pelvic pain has been worsening and she reports a deep internal pain that she describes as centrally located in her pelvic floor. She reports she will bleed heavily following intercourse. She can soak through two tampons in a hour following intercourse. She also reports bleeding following a bowel movements and has hemorrhoids. She has had an exploritory surgery done by Dr. Tian and no endometriosis was found. She has undergone a colonoscopy and this was normal She has a defogram test next week PT-OP-C Subjective Start: 05/26/19 14:41 Freq: Status: Active Protocol: Document 05/25/20 09:07 [facility] (Rec: 05/25/20 09:08 [facility] [email or web address]) OP-PT Subjective Patient Comments Patient Comments pt reports she is doing much better today, MFR techniques really help, she is having beter bowel movements and she is deoing the deep breathing. PT-OP-F Manual Assessment Start: 05/26/19 14:41 Freq: Status: Active Protocol: Document 04/12/20 09:45 [facility] (Rec: 04/18/20 17:54 [facility] [id number]) Manual Assessments Soft Tissue Assessment Soft Tissue Mobility Assessment tightness left side of the abdominal wall, Marie is able to tolerate MFR over her abdominal wall now and this is not as tight as it was back in October. There is tightness across her bladder in the subrapubic fascia. Tightness of the levator ani and difficulty relaxing her pelvic floor following a contraction PT-OP-I Pelvic Floor Start: 05/26/19 14:41 Freq: Status: Active Protocol: Document 12/14/19 16:00 [facility] (Rec: 12/21/19 11:23 [facility] [id number]) Pelvic Floor Assessment Pelvic Clock Pelvic Clock 12-3 Guarding Pelvic Clock 3-6 Guarding Pelvic Clock 6-9 Guarding Pelvic Clock 9-12 Guarding Comments Pelvic Floor Comments decreasing guarding of the posterior levator ani. Still very tender with intercourse, She is doing much better overall with improved ability to contract her pelvic floor and sustain a contraction for 10 seconds. SHe is able to relax to 3.4 uv today on EMG biofeedback. No increased pain with contractions x 10 reps PT-OP-J Posture/Palpation/Skin Start: 05/26/19 14:41 Freq: Status: Active Protocol: Document 05/27/19 13:58 [facility] (Rec: 05/27/19 13:59 [facility] [email or web address]) Palpation Assessment Location Two Palpation Location levator ani Palpation Findings Soft Tissue Tightness,Muscle Guarding,Tenderness One Palpation Location left side of abdominal wall, supra pubic fascia Palpation Findings Soft Tissue Tightness,Muscle Guarding,Tenderness PT-OP-Q Treatments Start: 05/26/19 14:41 Freq: Status: Active Protocol: Document 05/25/20 12:27 [facility] (Rec: 05/25/20 12:38 [facility] [id number]) Manual Therapy Treatment Soft Tissue Mobilization transverse perineal release Body Location transverse perineal release B Comments pt very sore in bilateral transverse perineal musculature today 4 Body Location posterior gluteal release with pundendal nerve flossing 2 Body Location external pelvic floor diaphragm MFR 1 Body Location ILU abdominal massage PT-OP-T Assessment and Plan Start: 05/26/19 14:41 Freq: Status: Active Protocol: Document 05/25/20 12:27 [facility] (Rec: 05/25/20 12:38 [facility] [id number]) Physical Therapy Assessment Assessment Summary Assessment pt doing much better overall, she has been working on yoga for pelic pain and this has helped. She has not yet returned to intercourse with her . SHe was able to tolerate the transverse perineal release today with decreased pain Physical Therapy Plan Frequency and Duration Frequency of Treatment 2xms/week Duration of Treatment 8 weeks Plan of Care Start Date 04/12/20 Plan of Care End Date 06/07/20 Next Visit Focus/Plan Next Note Type Treatment Note Next Visit Plan review foam roll stretches, return, MFR and breathing techniques to help reduce trigger points in the muscle and continue to reduce pelvic pain.
--- NOTE | 2020-05-30 14:57 | PT.OTN ---
Current Diagnoses Unspecified dyspareunia (05/30/20) Pelvic and perineal pain (05/30/20) Physical Therapy Treatment Note PT-OP-A Visit Information Start: 05/26/19 14:41 Freq: Status: Active Protocol: Document 05/30/20 08:58 [facility] (Rec: 05/30/20 09:07 [facility] [id number]) Out-Patient Physical Therapy Visit Information Visit Information Visit Type Treatment Note Visit Start Time 09:00 Visit Stop Time 09:45 Total Visit Minutes 45 Visit Number 20 PT-OP-B Current Condition Start: 05/26/19 14:41 Freq: Status: Active Protocol: Document 05/26/19 14:41 [facility] (Rec: 05/26/19 15:12 [facility] [email or web address]) Current Condition History of Current Condition Onset Date chronic but worsening Current Complaints pelvic pain and bleeding following intercourse,bleeding with bowel movement History of Current Condition symptoms began when she became sexually active but have worsened with time. Marie reports she was put on the pill when she was 12 as she had such painful periods and painful breasts. She has a hx of ovarian cycts. She does not currently menstruate as she takes the pill straight through her cycle to avoid a painful period. Her pelvic pain has been worsening and she reports a deep internal pain that she describes as centrally located in her pelvic floor. She reports she will bleed heavily following intercourse. She can soak through two tampons in a hour following intercourse. She also reports bleeding following a bowel movements and has hemorrhoids. She has had an exploritory surgery done by Dr. Tian and no endometriosis was found. She has undergone a colonoscopy and this was normal She has a defogram test next week PT-OP-C Subjective Start: 05/26/19 14:41 Freq: Status: Active Protocol: Document 05/30/20 08:58 [facility] (Rec: 05/30/20 09:07 [facility] [id number]) OP-PT Subjective Patient Comments Patient Comments She a night where she didn't get up at al lto void! She also didn't feel as tired after treatment. Sleeeping through the night better. Patient Reported Progress Improving PT-OP-F Manual Assessment Start: 05/26/19 14:41 Freq: Status: Active Protocol: Document 04/12/20 09:45 [facility] (Rec: 04/18/20 17:54 [facility] [id number]) Manual Assessments Soft Tissue Assessment Soft Tissue Mobility Assessment tightness left side of the abdominal wall, Marie is able to tolerate MFR over her abdominal wall now and this is not as tight as it was back in October. There is tightness across her bladder in the subrapubic fascia. Tightness of the levator ani and difficulty relaxing her pelvic floor following a contraction PT-OP-I Pelvic Floor Start: 05/26/19 14:41 Freq: Status: Active Protocol: Document 12/14/19 16:00 [facility] (Rec: 12/21/19 11:23 [facility] [id number]) Pelvic Floor Assessment Pelvic Clock Pelvic Clock 12-3 Guarding Pelvic Clock 3-6 Guarding Pelvic Clock 6-9 Guarding Pelvic Clock 9-12 Guarding Comments Pelvic Floor Comments decreasing guarding of the posterior levator ani. Still very tender with intercourse, She is doing much better overall with improved ability to contract her pelvic floor and sustain a contraction for 10 seconds. SHe is able to relax to 3.4 uv today on EMG biofeedback. No increased pain with contractions x 10 reps PT-OP-J Posture/Palpation/Skin Start: 05/26/19 14:41 Freq: Status: Active Protocol: Document 05/27/19 13:58 [facility] (Rec: 05/27/19 13:59 [facility] [email or web address]) Palpation Assessment Location Two Palpation Location levator ani Palpation Findings Soft Tissue Tightness,Muscle Guarding,Tenderness One Palpation Location left side of abdominal wall, supra pubic fascia Palpation Findings Soft Tissue Tightness,Muscle Guarding,Tenderness PT-OP-Q Treatments Start: 05/26/19 14:41 Freq: Status: Active Protocol: Document 05/30/20 14:55 [facility] (Rec: 05/30/20 14:57 [facility] [email or web address]) Manual Therapy Treatment Soft Tissue Mobilization transverse perineal release Body Location transverse perineal release B Comments pt very sore in bilateral transverse perineal musculature today 5 Body Location adductor release Comments left side tighter today 3 Body Location visceral mobilizations to the bladder Comments worked in the superior pubic fascia to release at the bladder 1 Body Location ILU abdominal massage PT-OP-T Assessment and Plan Start: 05/26/19 14:41 Freq: Status: Active Protocol: Document 05/30/20 14:55 [facility] (Rec: 05/30/20 14:57 [facility] [email or web address]) Physical Therapy Assessment Assessment Summary Assessment pt showing improvement of symptoms, she is sleeping through the night better now and has significantly less discomfort when working over her abdominal wall. Physical Therapy Plan Frequency and Duration Frequency of Treatment 2xms/week Duration of Treatment 8 weeks Plan of Care Start Date 04/12/20 Plan of Care End Date 06/07/20
--- NOTE | 2020-06-15 14:44 | PT.OTN ---
Current Diagnoses Unspecified dyspareunia (06/15/20) Pelvic and perineal pain (06/15/20) Physical Therapy Treatment Note PT-OP-A Visit Information Start: 05/26/19 14:41 Freq: Status: Active Protocol: Document 06/15/20 09:53 [facility] (Rec: 06/15/20 09:53 [facility] [id number]) Out-Patient Physical Therapy Visit Information Visit Information Visit Type Progress Note Visit Start Time 09:45 Visit Stop Time 10:30 Total Visit Minutes 45 Visit Number 21 PT-OP-B Current Condition Start: 05/26/19 14:41 Freq: Status: Active Protocol: Document 05/26/19 14:41 [facility] (Rec: 05/26/19 15:12 [facility] [email or web address]) Current Condition History of Current Condition Onset Date chronic but worsening Current Complaints pelvic pain and bleeding following intercourse,bleeding with bowel movement History of Current Condition symptoms began when she became sexually active but have worsened with time. Rachel reports she was put on the pill when she was 12 as she had such painful periods and painful breasts. She has a hx of ovarian cycts. She does not currently menstruate as she takes the pill straight through her cycle to avoid a painful period. Her pelvic pain has been worsening and she reports a deep internal pain that she describes as centrally located in her pelvic floor. She reports she will bleed heavily following intercourse. She can soak through two tampons in a hour following intercourse. She also reports bleeding following a bowel movements and has hemorrhoids. She has had an exploritory surgery done by Dr. Tian and no endometriosis was found. She has undergone a colonoscopy and this was normal She has a defogram test next week PT-OP-C Subjective Start: 05/26/19 14:41 Freq: Status: Active Protocol: Document 06/15/20 09:45 [facility] (Rec: 06/18/20 14:42 [facility] [email or web address]) OP-PT Subjective Patient Comments Patient Comments Rachel reports she has been working hard on doing her stretches, she was able to have intercourse without significant bleeding Patient Reported Progress Improving PT-OP-F Manual Assessment Start: 05/26/19 14:41 Freq: Status: Active Protocol: Document 04/12/20 09:45 [facility] (Rec: 04/18/20 17:54 [facility] [id number]) Manual Assessments Soft Tissue Assessment Soft Tissue Mobility Assessment tightness left side of the abdominal wall, Rachel is able to tolerate MFR over her abdominal wall now and this is not as tight as it was back in October. There is tightness across her bladder in the subrapubic fascia. Tightness of the levator ani and difficulty relaxing her pelvic floor following a contraction PT-OP-I Pelvic Floor Start: 05/26/19 14:41 Freq: Status: Active Protocol: Document 12/14/19 16:00 [facility] (Rec: 12/21/19 11:23 [facility] [id number]) Pelvic Floor Assessment Pelvic Clock Pelvic Clock 12-3 Guarding Pelvic Clock 3-6 Guarding Pelvic Clock 6-9 Guarding Pelvic Clock 9-12 Guarding Comments Pelvic Floor Comments decreasing guarding of the posterior levator ani. Still very tender with intercourse, She is doing much better overall with improved ability to contract her pelvic floor and sustain a contraction for 10 seconds. SHe is able to relax to 3.4 uv today on EMG biofeedback. No increased pain with contractions x 10 reps PT-OP-J Posture/Palpation/Skin Start: 05/26/19 14:41 Freq: Status: Active Protocol: Document 05/27/19 13:58 [facility] (Rec: 05/27/19 13:59 [facility] [email or web address]) Palpation Assessment Location Two Palpation Location levator ani Palpation Findings Soft Tissue Tightness,Muscle Guarding,Tenderness One Palpation Location left side of abdominal wall, supra pubic fascia Palpation Findings Soft Tissue Tightness,Muscle Guarding,Tenderness PT-OP-Q Treatments Start: 05/26/19 14:41 Freq: Status: Active Protocol: Document 06/15/20 09:45 [facility] (Rec: 06/18/20 14:42 [facility] [email or web address]) Manual Therapy Treatment Soft Tissue Mobilization transverse perineal release Body Location transverse perineal release B Comments pt very sore in bilateral transverse perineal musculature today 5 Body Location adductor release Comments left side tighter today 4 Body Location posterior gluteal release with pundendal nerve flossing 3 Body Location visceral mobilizations to the bladder Comments worked in the superior pubic fascia to release at the bladder 1 Body Location ILU abdominal massage PT-OP-T Assessment and Plan Start: 05/26/19 14:41 Freq: Status: Active Protocol: Document 06/15/20 09:45 [facility] (Rec: 06/18/20 14:42 [facility] [email or web address]) Physical Therapy Assessment Goals Five Impairment Urinary urgency with nocturia 1-2 xms per night Fpc Goal (LTG) Rachel reports decreased c/o urinary urgency and is only waking 1 time or less at night to void EXCELLENT PROGRESS, pt is sleeping better through the night LTG Duration 8 weeks Four Impairment myofascial restrictions and sensitivity to touch over the abdominal fascia Transformer Mechanic Goal (LTG) Rachel is able to perform self massage over her abdominal wall to help improve fascial mobility, decrease urgency, and improve bowel movements. EXCELLENT PROGRESS: Rachel is having improved bowel movements now and much more regular. THis has helped to decrease urinary urgency and pain. Her restrictions in the abdominal wall are decreasing and she is tolerating MFR well. Three Impairment Decreased endurance of the pelvic floor < 3 sec hold time Short Term Goal (STG) Rachel is able to sustain a pelvic floor contraction without pain x 5 seconds GOAL MET STG Duration 4 weeks Fpc Goal (LTG) Rachel is able to sustain a pelvic floor contraction without pain for 10 or more seconds GOAL MET LTG Duration 8 weeks Two Impairment Muscle guarding and spasm of the levator ani all parts of the pelvic clock Short Term Goal (STG) Rachel is able to begin working on a home stretching program for pelvic pain and is aware of when she is clenching her pelvic floor at rest GOAL MET: Rachel is doing the yoga for pelvic pain stretches daily now and it is making a big difference STG Duration 3-4 weeks Fpc Goal (LTG) Rachel is able to relax her pelvic floor to 2 uv or less on EMG biofeedback AT TIMES RACHEL IS ABLE TO RELAX TO 2.0 uv LTG Duration 8 weeks One Impairment pelvic pain ranging from 4-9 with intercourse Transformer Mechanic Goal (LTG) With a PT program for relaxed awareness of the pelvic floor Rachel reports a overall decrease in pelvic pain with intercourse Rachel has been able to resume intercourse. She reports at this last visit that she did not heavily bleed with intercourse and she is happy with her progress. She does still have discomfort but feels like she can relax more knowing she is not significantly bleeding. LTG Duration 8 weeks Assessment Summary Assessment pt doing really well and decreased abdominal discomfort overall. Pelvic floor release is becoming easier and not as painful. Rachel is working hard on her stretches for pelvic pain and she feels this along with the deep breathing techniques for home is making a big difference. Both with her ability to sleep for longer durations and decreased pain. She still has discomfort with intercourse but is not bleeding. She would like to continue PT as she is able to for continued MFR techniques and education for self care. Physical Therapy Plan Frequency and Duration Frequency of Treatment 2 Duration of Treatment 8 weeks Plan of Care Start Date 06/15/20 Plan of Care End Date 08/10/20 Therapeutic Interventions Therapeutic Interventions Home Exercise Program,Manual Therapy,Neuromuscular Re- education,Patient/Caregiver Education,Self-Care/Home Management,Soft Tissue Mobilization,Therapeutic Exercises Next Visit Focus/Plan Next Note Type Treatment Note Next Visit Plan review foam roll stretches, continue with MFR and breathing techniques to help reduce trigger points in the transverse perineum and levator ani to continue to reduce pelvic pain with intercourse.
--- NOTE | 2020-06-18 14:45 | PT.OPPN ---
Current Diagnoses Unspecified dyspareunia (06/15/20) Pelvic and perineal pain (06/15/20) Physical Therapy Progress Note PT-OP-A Visit Information Start: 05/26/19 14:41 Freq: Status: Active Protocol: Document 06/15/20 09:53 [facility] (Rec: 06/15/20 09:53 [facility] [id number]) Out-Patient Physical Therapy Visit Information Visit Information Visit Type Progress Note Visit Start Time 09:45 Visit Stop Time 10:30 Total Visit Minutes 45 Visit Number 21 PT-OP-B Current Condition Start: 05/26/19 14:41 Freq: Status: Active Protocol: Document 05/26/19 14:41 [facility] (Rec: 05/26/19 15:12 [facility] [email or web address]) Current Condition History of Current Condition Onset Date chronic but worsening Current Complaints pelvic pain and bleeding following intercourse,bleeding with bowel movement History of Current Condition symptoms began when she became sexually active but have worsened with time. Rachel reports she was put on the pill when she was 12 as she had such painful periods and painful breasts. She has a hx of ovarian cycts. She does not currently menstruate as she takes the pill straight through her cycle to avoid a painful period. Her pelvic pain has been worsening and she reports a deep internal pain that she describes as centrally located in her pelvic floor. She reports she will bleed heavily following intercourse. She can soak through two tampons in a hour following intercourse. She also reports bleeding following a bowel movements and has hemorrhoids. She has had an exploritory surgery done by Dr. Tian and no endometriosis was found. She has undergone a colonoscopy and this was normal She has a defogram test next week PT-OP-C Subjective Start: 05/26/19 14:41 Freq: Status: Active Protocol: Document 06/15/20 09:45 [facility] (Rec: 06/18/20 14:42 [facility] [email or web address]) OP-PT Subjective Patient Comments Patient Comments Rachel reports she has been working hard on doing her stretches, she was able to have intercourse without significant bleeding Patient Reported Progress Improving PT-OP-F Manual Assessment Start: 05/26/19 14:41 Freq: Status: Active Protocol: Document 04/12/20 09:45 [facility] (Rec: 04/18/20 17:54 [facility] [id number]) Manual Assessments Soft Tissue Assessment Soft Tissue Mobility Assessment tightness left side of the abdominal wall, Rachel is able to tolerate MFR over her abdominal wall now and this is not as tight as it was back in October. There is tightness across her bladder in the subrapubic fascia. Tightness of the levator ani and difficulty relaxing her pelvic floor following a contraction PT-OP-I Pelvic Floor Start: 05/26/19 14:41 Freq: Status: Active Protocol: Document 12/14/19 16:00 [facility] (Rec: 12/21/19 11:23 [facility] [id number]) Pelvic Floor Assessment Pelvic Clock Pelvic Clock 12-3 Guarding Pelvic Clock 3-6 Guarding Pelvic Clock 6-9 Guarding Pelvic Clock 9-12 Guarding Comments Pelvic Floor Comments decreasing guarding of the posterior levator ani. Still very tender with intercourse, She is doing much better overall with improved ability to contract her pelvic floor and sustain a contraction for 10 seconds. SHe is able to relax to 3.4 uv today on EMG biofeedback. No increased pain with contractions x 10 reps PT-OP-J Posture/Palpation/Skin Start: 05/26/19 14:41 Freq: Status: Active Protocol: Document 05/27/19 13:58 [facility] (Rec: 05/27/19 13:59 [facility] [email or web address]) Palpation Assessment Location Two Palpation Location levator ani Palpation Findings Soft Tissue Tightness,Muscle Guarding,Tenderness One Palpation Location left side of abdominal wall, supra pubic fascia Palpation Findings Soft Tissue Tightness,Muscle Guarding,Tenderness PT-OP-T Assessment and Plan Start: 05/26/19 14:41 Freq: Status: Active Protocol: Document 06/15/20 09:45 [facility] (Rec: 06/18/20 14:42 [facility] [email or web address]) Physical Therapy Assessment Goals Five Impairment Urinary urgency with nocturia 1-2 xms per night Pharmacist Manager Goal (LTG) Rachel reports decreased c/o urinary urgency and is only waking 1 time or less at night to void EXCELLENT PROGRESS, pt is sleeping better through the night LTG Duration 8 weeks Four Impairment myofascial restrictions and sensitivity to touch over the abdominal fascia Senior Care Goal (LTG) Rachel is able to perform self massage over her abdominal wall to help improve fascial mobility, decrease urgency, and improve bowel movements. EXCELLENT PROGRESS: Rachel is having improved bowel movements now and much more regular. THis has helped to decrease urinary urgency and pain. Her restrictions in the abdominal wall are decreasing and she is tolerating MFR well. Three Impairment Decreased endurance of the pelvic floor < 3 sec hold time Short Term Goal (STG) Rachel is able to sustain a pelvic floor contraction without pain x 5 seconds GOAL MET STG Duration 4 weeks Senior Care Goal (LTG) Rachel is able to sustain a pelvic floor contraction without pain for 10 or more seconds GOAL MET LTG Duration 8 weeks Two Impairment Muscle guarding and spasm of the levator ani all parts of the pelvic clock Short Term Goal (STG) Rachel is able to begin working on a home stretching program for pelvic pain and is aware of when she is clenching her pelvic floor at rest GOAL MET: Rachel is doing the yoga for pelvic pain stretches daily now and it is making a big difference STG Duration 3-4 weeks Senior Care Goal (LTG) Rachel is able to relax her pelvic floor to 2 uv or less on EMG biofeedback AT TIMES RACHEL IS ABLE TO RELAX TO 2.0 uv LTG Duration 8 weeks One Impairment pelvic pain ranging from 4-9 with intercourse Senior Care Goal (LTG) With a PT program for relaxed awareness of the pelvic floor Rachel reports a overall decrease in pelvic pain with intercourse Rachel has been able to resume intercourse. She reports at this last visit that she did not heavily bleed with intercourse and she is happy with her progress. She does still have discomfort but feels like she can relax more knowing she is not significantly bleeding. LTG Duration 8 weeks Assessment Summary Assessment pt doing really well and decreased abdominal discomfort overall. Pelvic floor release is becoming easier and not as painful. Rachel is working hard on her stretches for pelvic pain and she feels this along with the deep breathing techniques for home is making a big difference. Both with her ability to sleep for longer durations and decreased pain. She still has discomfort with intercourse but is not bleeding. She would like to continue PT as she is able to for continued MFR techniques and education for self care. Physical Therapy Plan Frequency and Duration Frequency of Treatment 2 Duration of Treatment 8 weeks Plan of Care Start Date 06/15/20 Plan of Care End Date 08/10/20 Therapeutic Interventions Therapeutic Interventions Home Exercise Program,Manual Therapy,Neuromuscular Re- education,Patient/Caregiver Education,Self-Care/Home Management,Soft Tissue Mobilization,Therapeutic Exercises Next Visit Focus/Plan Next Note Type Treatment Note Next Visit Plan review foam roll stretches, continue with MFR and breathing techniques to help reduce trigger points in the transverse perineum and levator ani to continue to reduce pelvic pain with intercourse.
--- NOTE | 2020-06-18 14:45 | PT.OPPOC ---
Physical, Occupational & Speech Therapy At [facility] Current Diagnoses Unspecified dyspareunia (06/15/20) Pelvic and perineal pain (06/15/20) Visit Care Team Role Provider Type Susana Bejarano MD Attending Provider Physician Primary Care Provider Specialty: Family Practice Address: [address] [place] [address], [id number] Email: [email or web address] Plan Of Care PT-OP-T Assessment and Plan Start: 05/26/19 14:41 Freq: Status: Active Protocol: Document 06/15/20 09:45 [facility] (Rec: 06/18/20 14:42 [facility] [email or web address]) Physical Therapy Assessment Goals Five Impairment Urinary urgency with nocturia 1-2 xms per night Master Motorcycle Technician Goal (LTG) Marie reports decreased c/o urinary urgency and is only waking 1 time or less at night to void EXCELLENT PROGRESS, pt is sleeping better through the night LTG Duration 8 weeks Four Impairment myofascial restrictions and sensitivity to touch over the abdominal fascia Long-Term Goal (LTG) Marie is able to perform self massage over her abdominal wall to help improve fascial mobility, decrease urgency, and improve bowel movements. EXCELLENT PROGRESS: Marie is having improved bowel movements now and much more regular. THis has helped to decrease urinary urgency and pain. Her restrictions in the abdominal wall are decreasing and she is tolerating MFR well. Three Impairment Decreased endurance of the pelvic floor < 3 sec hold time Short Term Goal (STG) Marie is able to sustain a pelvic floor contraction without pain x 5 seconds GOAL MET STG Duration 4 weeks Long-Term Goal (LTG) Marie is able to sustain a pelvic floor contraction without pain for 10 or more seconds GOAL MET LTG Duration 8 weeks Two Impairment Muscle guarding and spasm of the levator ani all parts of the pelvic clock Short Term Goal (STG) Marie is able to begin working on a home stretching program for pelvic pain and is aware of when she is clenching her pelvic floor at rest GOAL MET: Marie is doing the yoga for pelvic pain stretches daily now and it is making a big difference STG Duration 3-4 weeks Long-Term Goal (LTG) Marie is able to relax her pelvic floor to 2 uv or less on EMG biofeedback AT TIMES MARIE IS ABLE TO RELAX TO 2.0 uv LTG Duration 8 weeks One Impairment pelvic pain ranging from 4-9 with intercourse Master Motorcycle Technician Goal (LTG) With a PT program for relaxed awareness of the pelvic floor Marie reports a overall decrease in pelvic pain with intercourse Marie has been able to resume intercourse. She reports at this last visit that she did not heavily bleed with intercourse and she is happy with her progress. She does still have discomfort but feels like she can relax more knowing she is not significantly bleeding. LTG Duration 8 weeks Assessment Summary Assessment pt doing really well and decreased abdominal discomfort overall. Pelvic floor release is becoming easier and not as painful. Marie is working hard on her stretches for pelvic pain and she feels this along with the deep breathing techniques for home is making a big difference. Both with her ability to sleep for longer durations and decreased pain. She still has discomfort with intercourse but is not bleeding. She would like to continue PT as she is able to for continued MFR techniques and education for self care. Physical Therapy Plan Frequency and Duration Frequency of Treatment 2 Duration of Treatment 8 weeks Plan of Care Start Date 06/15/20 Plan of Care End Date 08/10/20 Therapeutic Interventions Therapeutic Interventions Home Exercise Program,Manual Therapy,Neuromuscular Re- education,Patient/Caregiver Education,Self-Care/Home Management,Soft Tissue Mobilization,Therapeutic Exercises Next Visit Focus/Plan Next Note Type Treatment Note Next Visit Plan review foam roll stretches, continue with MFR and breathing techniques to help reduce trigger points in the transverse perineum and levator ani to continue to reduce pelvic pain with intercourse. Plan of Care Dates Plan of Care Start Date 06/15/20 Plan of Care End Date 08/10/20 Electronically Signed by: Carey Bonner, PT 06/18/20 [id number] Please Sign and Return: I have reviewed this Plan of Care and certify that the skilled therapy services above are required to meet the patient?s needs. Physician Signature Date Printed Name and Credentials Clinical Instructor Signature Printed Name and Credentials
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
== END 2021-01-22 12:01 | disposition home or self-care (01) ==
LOC: PHYS 09:45
PROVIDERS: PCP Student in an Organized Health Care Education/Training Program; Visit Provider Student in an Organized Health Care Education/Training Program
DX: N94.10 Unspecified dyspareunia (principal); R10.2 Pelvic and perineal pain
CPT/HCPCS: 97110; 97112; 97140; 97161; 97530; 97535

== ENCOUNTER → 2020-09-22 09:29 | Outpatient (CLI) | payer OTHER, SELFPAY ==
[2020-09-22 09:52] LABS: COVID19 -Nasal RAPID Negative (Negative)
[2020-09-22 10:00] LABS: Add Manual Diff / Slide Review NO; Basophils Absolute Auto 100 /uL (0-100); Basophils Percent Auto 1.1 % (0-2); Eosinophils Absolute Auto 100 /uL (0-450); Eosinophils Percent Auto 1.2 % (2-4); Hematocrit 41.5 % (36-46); Hemoglobin 13.7 g/dL (12.0-16.0); Lymphocytes Absolute Auto 2100 /uL (1100-4500); Mean Corpuscular Hemoglobin 28.6 PG (26-34); Mean Corpuscular Volume 86.5 fL (80-100); Monocytes Absolute Auto 300 /uL (0-900); Monocytes Percent Auto 5.2 % (3-14); Neutrophils Absolute Auto 4100 /uL (1500-7000); Neutrophils Percent Auto 61.5 % (50-75); Platelet Count 289 X10^3/uL (150-400); Red Cell Distribution Width 12.4 % (11.6-14.8); White Blood Cell Count 6.7 X10^3/uL (4.5-11.0)
[2020-09-22 10:15] LABS: Alanine Aminotransferase 9 IU/L (<35); Albumin 4.2 g/dL (3.5-5.0); Albumin Globulin Ratio 1.6 (1.0-2.8); Alkaline Phosphatase 51 U/L (38-126); Aspartate Aminotransferase 16 IU/L (14-36); BUN Creatinine Ratio 15.6 (6-22); Bilirubin Total 0.5 mg/dL (0.2-1.3); Blood Urea Nitrogen 10 mg/dL (7-17); Carbon Dioxide 27 mmol/L (22-32); Chloride 104 mmol/L (98-107); Creatine Kinase 34 U/L (30-135); Estimated Glomerular Filt Rate > 60.0 mL/min (>60); Globulin 2.7 g/dL (1.7-4.1); Glucose 95 mg/dL (70-100); HEMOLYSIS < 15 (0-50); Sodium 136 mmol/L (137-145); Total Protein 6.9 g/dL (6.3-8.2)
[2020-09-22 10:27] LABS: Troponin I < 0.012 ng/mL (0.01-0.034)
[2020-09-22 11:14] LABS: TSH w/ Reflex to FT4 1.79 uIU/mL (0.47-4.68)
== END ==
PROVIDERS: PCP Student in an Organized Health Care Education/Training Program; Referring Provider Student in an Organized Health Care Education/Training Program; Visit Provider Student in an Organized Health Care Education/Training Program
DX: H92.01 Otalgia, right ear (principal); R00.2 Palpitations; Z20.828 Contact with and (suspected) exposure to other viral communicable diseases
CPT/HCPCS: 36415; 80053; 82550; 84443; 84484; 85025; 87635

== ENCOUNTER → 2021-03-14 08:42 | Outpatient (CLI) | payer OTHER, SELFPAY ==
--- NOTE | 2021-03-14 | DI.US.S_ITS ---
LIMITED ULTRASOUND OF LEFT BREAST: 03/14/2021 CLINICAL: Nipple discharge. Comparison is made to exam dated: 03/14/2021 [facility]. Real-time ultrasound of the left breast retroareolar was performed. Garay scale images of the real-time examination were reviewed. No significant abnormalities were seen sonographically in the left breast. IMPRESSION: NEGATIVE There is no sonographic evidence of malignancy. There is no abnormality seen in the left breast to correspond with the discharge from the nipple, however, clinical correlation is recommended. This exam was interpreted at Station ID: [id number]. Electronically Signed By: Travis mathis/michele:03/14/2021 11:00:28 letter sent: Clinical Evaluation Ultrasound BI-RADS: 1 Negative
--- NOTE | 2021-03-14 | DI.MG.S_ITS ---
BILATERAL DIGITAL DIAGNOSTIC MAMMOGRAM 3D/2D: 03/14/2021 CLINICAL: Baseline exam. Bilateral breast discharge and left breast enlargement. No prior exams were available for comparison. The tissue of both breasts is heterogeneously dense. This may lower the sensitivity of mammography. No significant masses, calcifications, or other findings are seen in either breast. IMPRESSION: INCOMPLETE: NEEDS ADDITIONAL IMAGING EVALUATION There is no abnormality seen in either breast to correspond with the discharge from the nipple in the sub-areolar depth, however, ultrasound is recommended. This exam was interpreted at Station ID: [id number]. NOTE: For mammograms, a report in lay terms will be sent to the patient. Approximately 15% of breast malignancies will not be visualized mammographically. In the management of a palpable breast mass, a negative mammogram must not discourage biopsy of a clinically suspicious lesion. Electronically Signed By: Travis mathis/michele:03/14/2021 10:57:41 ACR BI-RADS Category 0: Incomplete [id number]
--- NOTE | 2021-03-14 | DI.US.S_ITS ---
LIMITED ULTRASOUND OF RIGHT BREAST: 03/14/2021 CLINICAL: Nipple discharge. Comparison is made to exam dated: 03/14/2021 [facility]. Real-time ultrasound of the right breast was performed. Garay scale images of the real-time examination were reviewed. No significant abnormalities were seen sonographically in the right breast. IMPRESSION: NEGATIVE There is no sonographic evidence of malignancy. There is no abnormality seen in the right breast to correspond with the discharge from the nipple, however, clinical correlation is recommended. This exam was interpreted at Station ID: [id number]. Electronically Signed By: Travis mathis/michele:03/14/2021 11:01:29 Ultrasound BI-RADS: 1 Negative
== END ==
PROVIDERS: PCP Student in an Organized Health Care Education/Training Program; Referring Provider Student in an Organized Health Care Education/Training Program; Visit Provider Student in an Organized Health Care Education/Training Program
DX: N62 Hypertrophy of breast (principal); N64.52 Nipple discharge; R92.2 Inconclusive mammogram
CPT/HCPCS: 76642; 77066; G0279

== ENCOUNTER → 2021-06-05 07:03 | Outpatient (CLI) | payer OTHER, SELFPAY ==
[2021-06-05 07:48] LABS: COVID19 -Nasal RAPID Negative (Negative)
== END ==
PROVIDERS: PCP Student in an Organized Health Care Education/Training Program; Visit Provider Physician Assistant
DX: R09.81 Nasal congestion (principal); J02.9 Acute pharyngitis, unspecified; Z20.822 Contact with and (suspected) exposure to COVID-19
CPT/HCPCS: 87070; 87635

== ENCOUNTER → 2021-10-10 16:34 | Outpatient (CLI) | payer OTHER, SELFPAY ==
[2021-10-13 12:44] LABS: QuantiFERON Mitogen Value >10.00 IU/mL (.); QuantiFERON Nil Value 0.02 IU/mL (.); QuantiFERON TB Gold Plus Negative (Negative); QuantiFERON TB1 Ag Value 0.13 IU/mL (.); QuantiFERON TB2 Ag Value 0.01 IU/mL (.)
== END ==
PROVIDERS: PCP Student in an Organized Health Care Education/Training Program; Referring Provider Student in an Organized Health Care Education/Training Program; Visit Provider Student in an Organized Health Care Education/Training Program
DX: Z02.1 Encounter for pre-employment examination (principal)
CPT/HCPCS: 36415; 86480

== ENCOUNTER 2021-11-15 08:17 | Observation (INO) | payer OTHER, SELFPAY ==
[2021-11-15] VITALS (24 sets, daily range): BP systolic 94–113; BP diastolic 55–75; PULSE 50–84; RESP 16–36; TEMP 36.6–36.8; O2SAT 95–100; BMI 25.7
--- NOTE | 2021-11-15 08:35 | ED_ITS ---
HPI - Back Pain/Injury General Chief Complaint: Extremity Injury, Lower Stated Complaint: botox for migraines, weakness in left leg Time Seen by Provider: 11/15/21 08:21 History of Present Illness HPI Narrative: 31-year-old female nonsmoker with history of migraines presents with a chief complaint of left arm and leg weakness with numbness and tingling over the past 2 days or so. He is unsure exactly when she last felt normal but definitely started having symptoms about 2 days ago. She denies any blurred vision, trouble speech, facial weakness or dizziness. She is having a hard time using her left leg and left arm. She is had severe migraines since having a closed head injury couple years ago and just had her 4th episode of Botox injections by [facility] on Friday. She denies any recent trauma or injury. She has no ongoing headache, fever or chills. She has not activated as a code stroke as she is outside of any time frame for tPA and does not have a suffic iently elevated LAMS score to suggest she would be a candidate for mechanical retrieval in the setting of a large vessel occlusion Related Data Home Medications Medication Instructions Recorded Confirmed norethindrone acetate 1.5 1 tab PO DAILY 03/10/19 06/05/21 mg-ethinyl estradiol 30 mcg tablet (Microgestin) nortriptyline 10 mg capsule 10 mg PO DAILY 09/22/20 06/05/21 rizatriptan 10 mg tablet 10 mg PO ONCE 09/22/20 06/05/21 tazarotene 0.05 % topical cream 1 applic TOPICAL DAILY 09/22/20 06/05/21 (Tazorac) Previous Rx's Medication Instructions Recorded ondansetron 4 mg disintegrating 4 mg PO Q8H PRN #10 tab 06/25/20 tablet Allergies Allergy/AdvReac Type Severity Reaction Status Date / Time hydromorphone [From Dilaudid] Allergy Severe Itching, Verified 06/05/21 07:07 LOC, nausea codeine Allergy Unknown Pt unsure Verified 06/05/21 07:07 if true allergy hydrocodone Allergy Unknown Pt unsure Verified 06/05/21 07:07 of reaction Review of Systems Review of Systems Narrative: GENERAL: Denies chills, fatigue, malaise, fever, sweats. HEENT: Denies sinus pain, ear pain, sore throat, difficulty swallowing, diz ziness. RESPIRATORY: Denies dyspnea, cough, wheezing, hemoptysis, sputum. CARDIOVASCULAR: Denies chest pain, palpitations, orthopnea, edema, GASTROINTESTINAL: Denies nausea, vomiting, abdominal pain, diarrhea, constipation, melena. : Denies dysuria, frequency, incontinence, hematuria, urinary retention. MUSCULOSKELETAL: denies weakness, joint pain, or bony pain SKIN: Denies rash, skin lesions, or other NEUROLOGIC: See HPI PSYCHIATRIC: No concerning psychosocial issues. 12 point review of systems is negative except for those stated above Patient History Medical History (Updated 11/15/21 @ 16:00 by Travon Graves DO) Dyspareunia Migraines Routine screening for STI (sexually transmitted infection) Surgical History History of third molar tooth extraction (~2005) Status post laparoscopy (04/02/19) Status post tonsillectomy and adenoidectomy (~2006) Social History household members: spouse Smoking Status: Never smoker alcohol intake: current Smoking Status: Never smoker alcohol intake frequency: a few times a month Substance Use Type: does not use Exam Narrative Exam Narrative: GENERAL: [31 year old patient appears stated age. Well-developed patient, in mil d distress. A bit anxious, GCS 15 HEAD: Atraumatic. Normocephalic. EYES: Pupils equal round and reactive. Extraocular motions intact. No scleral icterus. No injection or drainage. ENT: Nose without bleeding, purulent drainage. Throat without erythema, tonsillar hypertrophy or exudate. Airway patent. NECK: Trachea midline. Non tender CARDIOVASCULAR: Regular rate and rhythm without murmurs, gallops, or rubs. RESPIRATORY: Clear to auscultation. Breath sounds equal bilaterally. No wheezes, rales, or rhonchi. GASTROINTESTINAL: Abdomen soft, non-tender, nondistended. EXTREMITIES: No edema or joint tenderness. BACK: Nontender without deformity or crepitance. No flank tenderness. NEURO: AOx3. SKIN: No rash or erythema of visible areas Initial Vital Signs Initial Vital Signs: Vital Signs Temperature 98.2 F 11/15/21 08:33 Pulse Rate 80 11/15/21 08:33 Respiratory Rate 18 11/15/21 08:33 Blood Pressure 110/69 11/15/21 08:33 Pulse Oximetry 99 11/15/21 08:33 Scores NIH Stroke Scale Level of Conciousness: Alert, keenly responsive Ask month/age: Answers both questions correctly. Open/close eyes, close hand: Performs both tasks correctly Best gaze horizontal: Normal Visual cohen: No visual loss Facial palsy: Normal symetrical movement Left arm drift: Drifts down, not to bed Right arm drift: No drift for full 10 sec Left leg drift: Drifts down, not to bed Right leg drift: No drift for full 5 sec Limb ataxia: Absent Sensory on face/arms/legs: Mild to moderate sensory loss, can tell touch Best language: No aphasia, normal Dysarthria: Normal Extinction or inattention: No abnormality Total NIH Stroke scale score: 3 Course Orders Ordered: ED Orders 11/15/21 08:42 CT head/brain wo con Stat EKG-12 Lead Stat 11/15/21 08:43 CT angio head and neck Stat 11/15/21 09:00 Complete Blood Count AUTO DIFF Stat Comprehensive Metabolic Panel Stat 11/15/21 09:50 Urine Drug Screen, Rapid Stat 11/15/21 10:34 MR head/brain wo con Stat 11/15/21 14:15 COVID19 -Nasal swab/Pre-Proc Stat Sodium Chloride (Normal Saline 0.9%) 1,000 mls @ 150 mls/hr IV CONT POONAM Last Infusion: 11/15/21 15:44 Dose: 0 mls/hr Documented by: Admin: 11/15/21 09:41 Dose: 150 mls/hr Documented by: [email or web address] Discontinued Medications Ketorolac Tromethamine (Ketorolac 30 Mg/Ml Vial) 15 mg IV NOW ONE Stop: 11/15/21 13:28 Last Admin: 11/15/21 13:48 Dose: 15 mg Documented by: RUSSELLOOSE Metoclopramide HCl (Metoclopramide 10 Mg/2 Ml Inj) 10 mg IV NOW ONE Stop: 11/15/21 13:28 Last Admin: 11/15/21 13:50 Dose: 10 mg Documented by: PORTILLO Consultations Consultation #1: Discussed with tele stroke upon completion of CT of head, CTA of head neck, as well as MRI of the brain. They recommend hypercoagulable workup, admission for completion of stroke workup including echocardiogram. Consultation #2: Dr. Bejarano happy to accept on her service Vital Signs Vital signs: Vital Signs - 8 hr 11/15/21 08:33 11/15/21 09:51 11/15/21 09:54 Temperature 98.2 F Pulse Rate 80 57 L 65 Respiratory Rate 18 Blood Pressure 110/69 106/67 Pulse Oximetry 99 100 100 11/15/21 10:00 11/15/21 10:30 11/15/21 11:00 Temperature Pulse Rate 56 L 61 61 Respiratory Rate 20 20 21 Blood Pressure 112/63 100/66 104/69 Pulse Oximetry 99 99 99 11/15/21 12:25 11/15/21 12:26 11/15/21 12:30 Temperature Pulse Rate 58 L 54 L 50 L Respiratory Rate 17 18 16 Blood Pressure 109/72 111/71 Pulse Oximetry 98 100 100 11/15/21 12:35 11/15/21 13:00 11/15/21 13:30 Temperature Pulse Rate 58 L 56 L 71 Respiratory Rate 20 19 36 H Blood Pressure 113/70 102/66 104/62 Pulse Oximetry 100 100 100 11/15/21 14:00 11/15/21 14:09 11/15/21 14:30 Temperature Pulse Rate 80 71 84 Respiratory Rate 34 H 20 25 H Blood Pressure 112/59 L 94/65 Pulse Oximetry 100 99 100 11/15/21 14:31 11/15/21 15:00 Temperature Pulse Rate 83 65 Respiratory Rate 23 21 Blood Pressure 108/59 L 99/57 L Pulse Oximetry 100 98 MDM - Back Pain/Injury Lab Data Result diagrams: 11/15/21 09:00 11/15/21 09:00 Labs: Lab Results 11/15/21 11/15/21 11/15/21 Range/Units 09:00 09:00 09:50 WBC 5.0 (4.5-11.0) X10^3/uL RBC 5.08 (4.0-5.2) X10^6/uL Hgb 14.4 (12.0-16.0) g/dL Hct 42.7 (36-46) % MCV 84.2 (80-100) fL MCH 28.4 (26-34) PG MCHC 33.7 (30-36) % RDW 13.6 (11.6-14.8) % Plt Count 274 (150-400) X10^3/uL Neut % (Auto) 54.4 (50-75) % Lymph % (Auto) 36.3 (25-40) % [place] % (Auto) 6.9 (3-14) % Eos % (Auto) 1.4 L (2-4) % Baso % (Auto) 1.0 (0-2) % Neut # (Auto) 2700 (5415-6961) /uL Lymph # (Auto) 1800 (4143-7299) /uL [place] # (Auto) 300 (0-900) /uL Eos # (Auto) 100 (0-450) /uL Baso # (Auto) 0 (0-100) /uL Sodium 140 (137-145) mmol/L Potassium 3.9 (3.4-5.1) mmol/L Chloride 103 (98-107) mmol/L Carbon Dioxide 29 (22-32) mmol/L BUN 15 (7-17) mg/dL Creatinine 0.64 (0.52-1.04) mg/dL Estimated GFR > 60.0 (>60) mL/min BUN/Creatinine Ratio 23.4 H (6-22) Glucose 96 (70-100) mg/dL Calcium 10.0 (8.4-10.2) mg/dL Total Bilirubin 1.0 (0.2-1.3) mg/dL AST 24 (14-36) IU/L ALT 13 (<35) IU/L Alkaline Phosphatase 85 (38-126) U/L Total Protein 8.1 (6.3-8.2) g/dL Albumin 5.1 H (3.5-5.0) g/dL Globulin 3.0 (1.7-4.1) g/dL Albumin/Globulin Ratio 1.7 (1.0-2.8) U Opiates 300ng/mL cut Negative (Negative) Ur Oxycodone Screen Negative (Negative) Urine Methadone Screen Negative (Negative) Ur Barbiturates Screen Negative (Negative) U Tricyclic Antidepress Negative (Negative) Ur Phencyclidine Scrn Negative (Negative) Ur Amphetamines Screen Negative (Negative) U Methamphetamines Scrn Negative (Negative) Ur MDMA Scrn (Ecstasy) Negative (Negative) U Benzodiazepines Scrn Negative (Negative) Urine Cocaine Screen Negative (Negative) U Marijuana (THC) Screen Negative (Negative) SARS-CoV-2 (PCR) (Negative) 11/15/21 Range/Units 14:15 WBC (4.5-11.0) X10^3/uL RBC (4.0-5.2) X10^6/uL Hgb (12.0-16.0) g/dL Hct (36-46) % MCV (80-100) fL MCH (26-34) PG MCHC (30-36) % RDW (11.6-14.8) % Plt Count (150-400) X10^3/uL Neut % (Auto) (50-75) % Lymph % (Auto) (25-40) % [place] % (Auto) (3-14) % Eos % (Auto) (2-4) % Baso % (Auto) (0-2) % Neut # (Auto) (0793-3688) /uL Lymph # (Auto) (7067-6166) /uL [place] # (Auto) (0-900) /uL Eos # (Auto) (0-450) /uL Baso # (Auto) (0-100) /uL Sodium (137-145) mmol/L Potassium (3.4-5.1) mmol/L Chloride (98-107) mmol/L Carbon Dioxide (22-32) mmol/L BUN (7-17) mg/dL Creatinine (0.52-1.04) mg/dL Estimated GFR (>60) mL/min BUN/Creatinine Ratio (6-22) Glucose (70-100) mg/dL Calcium (8.4-10.2) mg/dL Total Bilirubin (0.2-1.3) mg/dL AST (14-36) IU/L ALT (<35) IU/L Alkaline Phosphatase (38-126) U/L Total Protein (6.3-8.2) g/dL Albumin (3.5-5.0) g/dL Globulin (1.7-4.1) g/dL Albumin/Globulin Ratio (1.0-2.8) U Opiates 300ng/mL cut (Negative) Ur Oxycodone Screen (Negative) Urine Methadone Screen (Negative) Ur Barbiturates Screen (Negative) U Tricyclic Antidepress (Negative) Ur Phencyclidine Scrn (Negative) Ur Amphetamines Screen (Negative) U Methamphetamines Scrn (Negative) Ur MDMA Scrn (Ecstasy) (Negative) U Benzodiazepines Scrn (Negative) Urine Cocaine Screen (Negative) U Marijuana (THC) Screen (Negative) SARS-CoV-2 (PCR) Negative (Negative) Point of Care Testing Glucose POC 83 Urine Dip Bedside Urine Glucose Negative Bedside Urine Bilirubin - Negative Bedside Urine Ketone - Negative Urine Specific [place] 1.005 Bedside Urine Occult Blood - Negative Bedside Urine pH 8.0 Bedside Urine Protein - Negative Bedside Urine Urobilinogen - Negative Bedside Urine Nitrite - Negative Bedside Urine Leukocytes - Negative Esterase Imaging Data CTA - brain/neck: Radiologist's Impression: Marie Garcia??31??F??1990 ? Allergy/Adv: hydromorphone, codeine, hydrocodone (More??) Close Brain MRI (Signed) Michael Carrizales - 11/15/21 Head/Neck CTA (Signed) Rosario Greenfield - 11/15/[address] (Signed) Rosario Greenfield - 11/15/21 Mammogram Diagnostic (Signed) Travis Cortes - 03/14/21 Breast Ultrasound (Signed) Travis Cortes - 03/14/21 Breast Ultrasound (Signed) Travis Cortes - 03/14/[address] (Signed) Michael Carrizales - 06/25/20 Knee MRI (Signed) Jose Nielson - 11/05/19 Pelvis Ultrasound (Signed) Rachel Montoya - 09/27/19 Knee X-Ray (Signed) Michael Carrizales - 06/24/19 Launch?[place] [address] CT Scan Report Signed Patient: Marie Garcia MR#: [id number] : 1990 Acct:[id number] Age/Sex: 31 / F Date of Service: 11/15/21 Loc: ED Accession Number: [id number] ?? Procedure: CT head/brain wo con Ordering Provider: Travon Graves D.O. PROCEDURE:? CT HEAD/BRAIN WO CON ? INDICATIONS:? left arm and leg weakness ? TECHNIQUE:? Noncontrast 4.5 mm thick angled axial sections acquired from the foramen magnum to the vertex, with coronal and sagittal reformats.? For radiation dose reduction, the following was used:? automated exposure control, adjustment of mA and/or kV according to patient size.? ? COMPARISON:? [facility], CT, CT ANGIO HEAD AND NECK, 11/15/2021, 8:54.? [facility], CT, CT HEAD/BRAIN WO CON, 06/25/2020, 0:15. ? FINDINGS:? Image quality:? Excellent.? ? CSF spaces:? Basal cisterns are patent.? No extra-axial fluid collections.? Ventricles are normal in size and shape.? ? Brain:? No midline shift.? No intracranial masses or hemorrhage.? Garay-white matter interface is normal.? ? Skull and face:? Calvarium and visualized facial bones are intact, without suspicious lesions.? ? Sinuses:? Visualized sinuses and mastoids are clear.? ? IMPRESSION:? ? 1. No acute intracranial process. ? ? Dictated by: Rosario Greenfield M.D. on 11/15/2021 at 9:45 ? ? Approved by: Rosario Greenfield M.D. on 11/15/2021 at 9:45 ? Chart Viewer Diagnostics Subcategory All Activity ??:?? All Time ??:?? All Subcategories Filter Laboratory Imaging Microbiology Pathology Blood Bank Tests Cardiovascular Other Specialty DATE TYPE STATUS REF RANGE/AUTHOR Hx Today 10:34 Brain MRI Signed Michael Carrizales Today 08:43 Head/Neck CTA Signed Rosario Greenfield Today 08:[address] Signed Rosario Greenfield 03/14/21 00:00 Mammogram Diagnostic Signed Travis Cortes 03/14/21 00:00 Breast Ultrasound Signed Travis Cortes 03/14/21 00:00 Breast Ultrasound Signed Travis Cortes 06/25/20 00:[address] Signed Michael Carrizales 11/05/19 17:46 Knee MRI Signed Jose Nielson 09/27/19 00:00 Pelvis Ultrasound Signed Rachel Montoya 06/24/19 00:00 Knee X-Ray Signed Michael Carrizales Candice M M ED 31, F?1990 MRN#? [id number] [facility],?Main ED??R04?? 162.56cm 68.039kg BMI: 25.7kg/m? Extremity Injury, Lower Acc#? [id number] Resus Status Not Ordered Hx Avail Special Indicators No Data to Display Home Meds Not Confirmed Prescription Monitoring Program MEDICATIONS (INSTRUCTIONS) LAST TAKEN Active ??norethindrone acetate 1.5 mg-ethinyl estradiol 30 mcg tablet ??1 tabPODAILY ??nortriptyline 10 mg capsule ??10 mgPODAILY ??ondansetron ??4 [id number] tab ??rizatriptan 10 mg tablet ??10 mgPOONCE ??tazarotene 0.05 % topical cream ??1 applicTOPICALDAILY Allergies hydromorphone (From Dilaudid) Itching, LOC, nausea codeine Pt unsure if true allergy hydrocodone Pt unsure of reaction Problems External Data Available ? ONSET Viral URI Right ear pain Palpitations with regular cardiac rhythm Routine screening for STI (sexually transmitted infection) No known health problems 04/22/11 Vital Signs Today 12:30 BP 111/71? Pulse 50?L Resp 16? O2 Sat 100? Diagnostics Reports Marie Garcia??31??F??1990 ? Allergy/Adv: hydromorphone, codeine, hydrocodone (More??) Close Brain MRI (Signed) Michael Carrizales - 11/15/21 Head/Neck CTA (Signed) Rosario Greenfield - 11/15/[address] (Signed) Rosario Greenfield - 11/15/21 Mammogram Diagnostic (Signed) Travis Cortes - 03/14/21 Breast Ultrasound (Signed) Travis Cortes - 03/14/21 Breast Ultrasound (Signed) Travis Cortes - 03/14/[address] (Signed) Michael Carrizales - 06/25/20 Knee MRI (Signed) Jose Nielson - 11/05/19 Pelvis Ultrasound (Signed) Rachel Montoya - 09/27/19 Knee X-Ray (Signed) Michael Carrizales - 06/24/19 Launch?[address] [address] [address] Scan Report Signed Patient: Marie Garcia MR#: [id number] : 1990 Acct:[id number] Age/Sex: 31 / F Date of Service: 11/15/21 Loc: ED Accession Number: [id number] ?? Procedure: CT angio head and neck Ordering Provider: Travon Graves D.O. PROCEDURE:? CT ANGIO HEAD AND NECK ? INDICATIONS:? left arm and leg weakness ? TECHNIQUE:? Pre-contrast 4.5 mm thick sections acquired from the foramen magnum to the vertex.? After the administration of intravenous contrast, 1 mm thick sections acquired from the aortic arch through the [place].? Post-contrast 4.5 mm thick sections then re- acquired from the foramen magnum to the vertex.? 3-dimensional jldzaan-sakkpwcur-zxvxeragis (MIP) and/or volume rendering reformats were acquired of the central intracranial vasculature and neck separately. ? COMPARISON:? [facility], CT, CT HEAD/BRAIN WO CON, 11/15/2021, 8:54. ? FINDINGS:? Image quality:? Excellent.? ? BRAIN:? CSF spaces:? Ventricles are normal in size and shape.? Basal cisterns are patent.? No extra-axial fluid collections.? ? Brain:? No midline shift.? No intracranial bleeds or masses.? Garay-white matter interface appears intact.? ? Skull and face:? Calvarium and facial bones appear intact, without suspicious lesions.? Orbits appear normal.? ? Sinuses:? Sinuses and mastoids are clear.? ? HEAD CT ANGIOGRAPHY:? Anterior circulation:? Intracranial internal carotid arteries are normal in size and flow.? The flow within the paired anterior cerebral arteries is normal and symmetric.? The flow within the middle cerebral arteries is normal and symmetric.? The anterior communicating artery is seen.? No aneurysms are seen.? ? Posterior circulation:? Visualized portions of the vertebral arteries demonstrate normal caliber, and join to form a normal appearing basilar artery.? Flow within the posterior cerebral arteries is normal and symmetric.? No aneurysms are seen.? There is a slight left vertebral artery dominance. ? NECK CT ANGIOGRAPHY:? The origins of the left and right common, internal and external carotid arteries demonstrate no areas of hemodynamically significant stenosis, vascular occlusion or aneurysmal dilation. Origins of the left and right vertebral arteries demonstrate no areas of hemodynamically significant stenosis, vascular occlusion or aneurysmal dilation. Aortic arch demonstrates conventional anatomy. Limited, visualized portions of the subclavian vasculature are unremarkable.? Low-attenuation focus is present within the right thyroid lobe.? No priors are available for comparison. ? IMPRESSION:? ? 1. No acute intracranial process. ? 2. No areas of hemodynamically significant stenosis, vascular occlusion or aneurysmal dilation within the anterior or posterior circulation.? ? 3. No areas of hemodynamically significant stenosis, vascular occlusion or aneurysmal dilation within the neck vasculature. ? 4.? Low-attenuation focus within the right thyroid lobe overall nonspecific.? Recommend thyroid ultrasound for further evaluation on a nonemergent basis.? ? Any quantitative measurements of stenosis were performed using NASCET criteria.? ? ? Dictated by: Rosario Greenfield M.D. on 11/15/2021 at 9:30 ? ? Approved by: Rosario Greenfield M.D. on 11/15/2021 at 9:37 ? Brain MRI: Radiologist's Impression: Chart Viewer Diagnostics Subcategory All Activity ??:?? All Time ??:?? All Subcategories Filter Laboratory Imaging Microbiology Pathology Blood Bank Tests Cardiovascular Other Specialty DATE TYPE STATUS REF RANGE/AUTHOR Hx Today 10:34 Brain MRI Signed Michael Carrizales Today 08:43 Head/Neck CTA Signed Rosario Greenfield Today 08:[address] Signed Rosario Greenfield 03/14/21 00:00 Mammogram Diagnostic Signed Travis Cortes 03/14/21 00:00 Breast Ultrasound Signed Travis Cortes 03/14/21 00:00 Breast Ultrasound Signed Travis Cortes 06/25/20 00:[address] Signed Michael Carrizales 11/05/19 17:46 Knee MRI Signed Jose Nielson 09/27/19 00:00 Pelvis Ultrasound Signed Rachel Montoya 06/24/19 00:00 Knee X-Ray Signed Michael Carrizales Candice M M ED 31, F?1990 MRN#? [id number] [facility],?Main ED??R04?? 162.56cm 68.039kg BMI: 25.7kg/m? Extremity Injury, Lower Acc#? [id number] Resus Status Not Ordered Hx Avail Special Indicators No Data to Display Home Meds Not Confirmed Prescription Monitoring Program MEDICATIONS (INSTRUCTIONS) LAST TAKEN Active ??norethindrone acetate 1.5 mg-ethinyl estradiol 30 mcg tablet ??1 tabPODAILY ??nortriptyline 10 mg capsule ??10 mgPODAILY ??ondansetron ??4 [id number] tab ??rizatriptan 10 mg tablet ??10 mgPOONCE ??tazarotene 0.05 % topical cream ??1 applicTOPICALDAILY Allergies hydromorphone (From Dilaudid) Itching, LOC, nausea codeine Pt unsure if true allergy hydrocodone Pt unsure of reaction Problems External Data Available ? ONSET Viral URI Right ear pain Palpitations with regular cardiac rhythm Routine screening for STI (sexually transmitted infection) No known health problems 04/22/11 Vital Signs Today 12:30 BP 111/71? Pulse 50?L Resp 16? O2 Sat 100? Diagnostics Reports Marie Garcia??31??F??1990 ? Allergy/Adv: hydromorphone, codeine, hydrocodone (More??) Close Brain MRI (Signed) Michael Carrizales - 11/15/21 Head/Neck CTA (Signed) Rosario Greenfield - 11/15/[address] (Signed) Rosario Greenfield - 11/15/21 Mammogram Diagnostic (Signed) Travis Cortes - 03/14/21 Breast Ultrasound (Signed) Travis Cortes - 03/14/21 Breast Ultrasound (Signed) Travis Cortes - 03/14/[address] (Signed) Michael Carrizales - 06/25/20 Knee MRI (Signed) Jose Nielson - 11/05/19 Pelvis Ultrasound (Signed) Rachel Montoya - 09/27/19 Knee X-Ray (Signed) Michael Carrizales - 06/24/19 Launch?[place] [id number] Magnetic Resonance Report Signed Patient: Marie Garcia MR#: [id number] : 1990 Acct:[id number] Age/Sex: 31 / F Date of Service: 11/15/21 Loc: ED Accession Number: [id number] ?? Procedure: MR head/brain wo con Ordering Provider: Travon Graves D.O. PROCEDURE:? MR HEAD/BRAIN WO CON ? INDICATIONS:? Left sided stroke symptoms ? TECHNIQUE:? Noncontrast axial T1 spin echo, axial T2 fast spin echo, sagittal and axial FLAIR, coronal T2 fast spin echo, axial gradient echo, axial diffusion and ADC through the brain.? ? COMPARISON:? [facility], CT, CT HEAD/BRAIN WO CON, 06/25/2020, 0:15.? [facility], CT, CT HEAD/BRAIN WO CON, 11/15/2021, 8:54.? [facility], CT, CT ANGIO HEAD AND NECK, 11/15/2021, 8:54. ? FINDINGS:? Image quality:? This examination is limited by involuntary motion artifact.? ? CSF Spaces:? Basal cisterns are patent.? No extra-axial fluid collections.? Ventricles are normal in size and shape.? ? Brain:? No intracranial masses or hemorrhage.? Garay/white matter interface is normal.? Brainstem appears normal.? Diffusion-weighted images demonstrate no acute ischemic insult.? No chronic ischemic insults.? Normal intravascular flow voids are present.? ? Skull and face:? Calvarium has normal marrow signal.? Orbits appear normal.? ? Sinuses:? Sinuses and mastoids are clear.? ? IMPRESSION:? No findings of acute or subacute infarction can be seen. ? ? Dictated by: Michael Carrizales M.D. on 11/15/2021 at 11:24 ? ? Approved by: Michael Carrizales M.D. on 11/15/2021 at 11:25 ? Discharge Plan Departure Patient Disposition: Admitted as Observation Clinical Impression: Stroke, Headache, hemiplegic migraine Admit Date/Time: 11/15/21 15:15 Admit Provider: Susana Bejarano
--- NOTE | 2021-11-15 08:42 | DI.CT.S_ITS ---
PROCEDURE: CT HEAD/BRAIN WO CON INDICATIONS: left arm and leg weakness TECHNIQUE: Noncontrast 4.5 mm thick angled axial sections acquired from the foramen magnum to the vertex, with coronal and sagittal reformats. For radiation dose reduction, the following was used: automated exposure control, adjustment of mA and/or kV according to patient size. COMPARISON: [facility], CT, CT ANGIO HEAD AND NECK, 11/15/2021, 8:54. [facility], CT, CT HEAD/BRAIN WO CON, 06/25/2020, 0:15. FINDINGS: Image quality: Excellent. CSF spaces: Basal cisterns are patent. No extra-axial fluid collections. Ventricles are normal in size and shape. Brain: No midline shift. No intracranial masses or hemorrhage. Garay-white matter interface is normal. Skull and face: Calvarium and visualized facial bones are intact, without suspicious lesions. Sinuses: Visualized sinuses and mastoids are clear. IMPRESSION: 1. No acute intracranial process. Dictated by: Rosario Greenfield M.D. on 11/15/2021 at 9:45 Approved by: Rosario Greenfield M.D. on 11/15/2021 at 9:45
--- NOTE | 2021-11-15 08:43 | DI.CT.S_ITS ---
PROCEDURE: CT ANGIO HEAD AND NECK INDICATIONS: left arm and leg weakness TECHNIQUE: Pre-contrast 4.5 mm thick sections acquired from the foramen magnum to the vertex. After the administration of intravenous contrast, 1 mm thick sections acquired from the aortic arch through the [place] of [place]. Post-contrast 4.5 mm thick sections then re-acquired from the foramen magnum to the vertex. 3-dimensional vzxnlep-ikvpfomkf-kourtwbiij (MIP) and/or volume rendering reformats were acquired of the central intracranial vasculature and neck separately. COMPARISON: [facility], CT, CT HEAD/BRAIN WO CON, 11/15/2021, 8:54. FINDINGS: Image quality: Excellent. BRAIN: CSF spaces: Ventricles are normal in size and shape. Basal cisterns are patent. No extra-axial fluid collections. Brain: No midline shift. No intracranial bleeds or masses. Garay-white matter interface appears intact. Skull and face: Calvarium and facial bones appear intact, without suspicious lesions. Orbits appear normal. Sinuses: Sinuses and mastoids are clear. HEAD CT ANGIOGRAPHY: Anterior circulation: Intracranial internal carotid arteries are normal in size and flow. The flow within the paired anterior cerebral arteries is normal and symmetric. The flow within the middle cerebral arteries is normal and symmetric. The anterior communicating artery is seen. No aneurysms are seen. Posterior circulation: Visualized portions of the vertebral arteries demonstrate normal caliber, and join to form a normal appearing basilar artery. Flow within the posterior cerebral arteries is normal and symmetric. No aneurysms are seen. There is a slight left vertebral artery dominance. NECK CT ANGIOGRAPHY: The origins of the left and right common, internal and external carotid arteries demonstrate no areas of hemodynamically significant stenosis, vascular occlusion or aneurysmal dilation. Origins of the left and right vertebral arteries demonstrate no areas of hemodynamically significant stenosis, vascular occlusion or aneurysmal dilation. Aortic arch demonstrates conventional anatomy. Limited, visualized portions of the subclavian vasculature are unremarkable. Low-attenuation focus is present within the right thyroid lobe. No priors are available for comparison. IMPRESSION: 1. No acute intracranial process. 2. No areas of hemodynamically significant stenosis, vascular occlusion or aneurysmal dilation within the anterior or posterior circulation. 3. No areas of hemodynamically significant stenosis, vascular occlusion or aneurysmal dilation within the neck vasculature. 4. Low-attenuation focus within the right thyroid lobe overall nonspecific. Recommend thyroid ultrasound for further evaluation on a nonemergent basis. Any quantitative measurements of stenosis were performed using NASCET criteria. Dictated by: Rosario Greenfield M.D. on 11/15/2021 at 9:30 Approved by: Rosario Greenfield M.D. on 11/15/2021 at 9:37
[2021-11-15 09:09] LABS: Add Manual Diff / Slide Review NO; Basophils Absolute Auto 0 /uL (0-100); Eosinophils Absolute Auto 100 /uL (0-450); Eosinophils Percent Auto 1.4 % (2-4); Hematocrit 42.7 % (36-46); Hemoglobin 14.4 g/dL (12.0-16.0); Lymphocytes Absolute Auto 1800 /uL (1100-4500); Lymphocytes Percent Auto 36.3 % (25-40); Mean Corpuscular HGB Conc 33.7 % (30-36); Mean Corpuscular Hemoglobin 28.4 PG (26-34); Mean Corpuscular Volume 84.2 fL (80-100); Monocytes Absolute Auto 300 /uL (0-900); Monocytes Percent Auto 6.9 % (3-14); Neutrophils Absolute Auto 2700 /uL (1500-7000); Neutrophils Percent Auto 54.4 % (50-75); Platelet Count 274 X10^3/uL (150-400); Red Blood Cell Count 5.08 X10^6/uL (4.0-5.2); Red Cell Distribution Width 13.6 % (11.6-14.8)
[2021-11-15 09:20] LABS: Alanine Aminotransferase 13 IU/L (<35); Albumin 5.1 g/dL (3.5-5.0); Albumin Globulin Ratio 1.7 (1.0-2.8); Alkaline Phosphatase 85 U/L (38-126); Aspartate Aminotransferase 24 IU/L (14-36); BUN Creatinine Ratio 23.4 (6-22); Blood Urea Nitrogen 15 mg/dL (7-17); Carbon Dioxide 29 mmol/L (22-32); Chloride 103 mmol/L (98-107); Estimated Glomerular Filt Rate > 60.0 mL/min (>60); Glucose 96 mg/dL (70-100); HEMOLYSIS < 15 (0-50); Potassium 3.9 mmol/L (3.4-5.1); Sodium 140 mmol/L (137-145); Total Protein 8.1 g/dL (6.3-8.2)
[2021-11-15] MEDS: SODIUM CHLORIDE 0.9% 1,000 ML 150 ML IV (09:41)
[2021-11-15 10:11] LABS: UR Morphine/Opiate cutoff 300 Negative (Negative); Ur Creatinine Normal (Normal); Ur Specific Gravity Normal (Normal); Urine Amphetamines Negative (Negative); Urine Barbiturates Negative (Negative); Urine Benzodiazepines Negative (Negative); Urine Cocaine Negative (Negative); Urine MDMA Negative (Negative); Urine Methadone Negative (Negative); Urine Methamphetamines Negative (Negative); Urine Oxycodone Negative (Negative); Urine Phencyclidine Negative (Negative); Urine Tetrahydrocannabinol Negative (Negative); Urine Tricyclic Antidepressant Negative (Negative); Urine pH Normal (Normal)
--- NOTE | 2021-11-15 10:34 | DI.MRI.S_ITS ---
PROCEDURE: MR HEAD/BRAIN WO CON INDICATIONS: Left sided stroke symptoms TECHNIQUE: Noncontrast axial T1 spin echo, axial T2 fast spin echo, sagittal and axial FLAIR, coronal T2 fast spin echo, axial gradient echo, axial diffusion and ADC through the brain. COMPARISON: [facility], CT, CT HEAD/BRAIN WO CON, 06/25/2020, 0:15. [facility], CT, CT HEAD/BRAIN WO CON, 11/15/2021, 8:54. [facility], CT, CT ANGIO HEAD AND NECK, 11/15/2021, 8:54. FINDINGS: Image quality: This examination is limited by involuntary motion artifact. CSF Spaces: Basal cisterns are patent. No extra-axial fluid collections. Ventricles are normal in size and shape. Brain: No intracranial masses or hemorrhage. Garay/white matter interface is normal. Brainstem appears normal. Diffusion-weighted images demonstrate no acute ischemic insult. No chronic ischemic insults. Normal intravascular flow voids are present. Skull and face: Calvarium has normal marrow signal. Orbits appear normal. Sinuses: Sinuses and mastoids are clear. IMPRESSION: No findings of acute or subacute infarction can be seen. Dictated by: Michael Carrizales M.D. on 11/15/2021 at 11:24 Approved by: Michael Carrizales M.D. on 11/15/2021 at 11:25
--- NOTE | 2021-11-15 11:37 | PC.NURSE ---
Patient reported to ED with Lower extremity pain and weakness. Patient reports that she has Botox injections every 3 months, and that she had her last one 6 days ago, on Friday. She reports that on Friday she had what felt like a kink in her neck, and that her neck felt full. Also, she felt sharp shooting pains down both sides of her back, down to her lower buttocks. She reports still having some shooting pains down her left leg. Yesterday she says that she had difficulty moving her legs and had new pain in her left groin that felt like a pulled muscle. She states that since her injection she has not done any physical activity, but that she is usually very physically active. Today She states that her left leg feels weird and she does not have full range of motion of the left leg. Assessment showed that she was unable to fully raise her left leg, and that her leg drifted downward but did not touch bed.
[2021-11-15] MEDS: KETOROLAC 30 MG/ML VIAL 15 MG IV (13:48)
[2021-11-15] MEDS: METOCLOPRAMIDE 10 MG/2 ML INJ IV (13:50)
[2021-11-15 15:05] LABS: COVID19 -Nasal RAPID Negative (Negative)
--- NOTE | 2021-11-15 17:59 | P.HP_ITS ---
History of Present Illness History of Present Illness Date Patient Seen: 11/15/21 Time Patient Seen: 18:00 Chief complaint: botox for migraines, weakness in left leg Narrative: 31 year old female admitted from the ED for observation for left sided weakness and numbness x 2 days. Medical history is significant for migraines that started after she had a concussion in 2019. She had a protracted course of post-concussion syndrome and was refractory to the usual treatments for migraines. Eventually she was referred to neurology and has been receiving botox for the past year with some success. 7 days ago, she had her fourth botox injection. Did not have immediate symptoms, but 2 days ago, started to feel tingly in her left leg and needed to use her arms to lift her left leg over her right leg to cross it. Vital signs upon presentation to the ED included a Temperature 98.2?, pulse 80, respirations 18, blood pressure 110/69, and O2 saturation 99% on room air. Lab workup was unremarkable. NIH stroke scale 3. CT of the head, CTA of the head/ neck, MRI of the head/ brain all negative. Incidentally, a non-specific low- attentuation focus in the right lobe of the thyroid was noticed on CT angiogram and follow-up thyroid ultrasound recommended in the outpatient setting. Physical exam findings significant for left-sided weakness. Neurology was consulted and advised admission for observation with echo to follow and hypercoagulability workup. Upon interview this evening, patient is completely asymptomatic and her full faculties have been restored. She denies any further weakness or numbness. Denies that she ever had a headache prior to the onset of the weakness. She is otherwise feeling at her baseline. Past Medical History: ACNE VULGARIS Perianal fissure External hemorrhoids, with complication Ferritin level low ARTHRALGIA Tinea versicolor History of ovarian cyst Postconcussion syndrome Migraine without aura Past Surgical History: Tonsillectomy-2007 [place] Teeth Exploratory Lap, March 2019 Colonoscopy, April 2019 Family History: Father: Hypertension Mother: none Siblings: none Social History: Marital Status: , 04/19/17 Children: 0 Occupation: [employer] Household Members: spouse Education: College Type of Exercise: walking, jogging Patient History Medical History Dyspareunia Migraines Routine screening for STI (sexually transmitted infection) Surgical History History of third molar tooth extraction (~2005) Status post laparoscopy (04/02/19) Status post tonsillectomy and adenoidectomy (~2006) Family & Social History Social History: household members spouse Safety & Behavioral: Feels Safe in Current Yes Environment Been Physically Hurt or No Threatened By a Person Suicidal Ideation Description None Tobacco & Substance use: Smoking Status Never smoker alcohol intake current alcohol intake frequency a few times a month Substance Use Type does not use Meds Home Medications and Allergies Home Medications Medication Instructions Recorded Confirmed Type ubrogepant 100 mg tablet (Ubrelvy) 100 mg PO PRN PRN 11/15/21 11/15/21 History Allergies Allergy/AdvReac Type Severity Reaction Status Date / Time hydromorphone [From Dilaudid] Allergy Severe Itching, Verified 06/05/21 07:07 LOC, nausea codeine Allergy Unknown Pt unsure Verified 06/05/21 07:07 if true allergy hydrocodone Allergy Unknown Pt unsure Verified 06/05/21 07:07 of reaction Review of Systems Review of Systems Narrative: All remaining ROS were reviewed and negative except as addressed. Exam Vital Signs (past 8 hours): - 11/15/21 10:00 11/15/21 10:30 11/15/21 11:00 Temperature Pulse Rate 56 L 61 61 Respiratory Rate 20 20 21 Blood Pressure 112/63 100/66 104/69 Pulse Oximetry 99 99 99 11/15/21 12:25 11/15/21 12:26 11/15/21 12:30 Temperature Pulse Rate 58 L 54 L 50 L Respiratory Rate 17 18 16 Blood Pressure 109/72 111/71 Pulse Oximetry 98 100 100 11/15/21 12:35 11/15/21 13:00 11/15/21 13:30 Temperature Pulse Rate 58 L 56 L 71 Respiratory Rate 20 19 36 H Blood Pressure 113/70 102/66 104/62 Pulse Oximetry 100 100 100 11/15/21 14:00 11/15/21 14:09 11/15/21 14:30 Temperature Pulse Rate 80 71 84 Respiratory Rate 34 H 20 25 H Blood Pressure 112/59 L 94/65 Pulse Oximetry 100 99 100 11/15/21 14:31 11/15/21 15:00 11/15/21 15:32 Temperature Pulse Rate 83 65 65 Respiratory Rate 23 21 26 H Blood Pressure 108/59 L 99/57 L 105/55 L Pulse Oximetry 100 98 99 11/15/21 16:00 11/15/21 16:30 Temperature 97.8 F Pulse Rate 71 65 Respiratory Rate 16 16 Blood Pressure 108/75 Pulse Oximetry 100 97 Oxygen Delivery Method Room Air Oxygen Flow Rate 0 Narrative Exam Narrative: GENERAL: Alert and oriented, appearing stated age and in no acute distress. HEENT: Head normocephalic/atraumatic. Extraocular movements intact. LUNGS: Clear to ausculation bilaterally, no wheezes, rhonchi or rales. CV: Normal S1 and S2 with regular rate and rhythm, no audible murmurs, rubs or gallops. ABDOMEN: Soft, non-tender, non-distended, no organomegaly. Positive bowel sounds. EXTREMITIES: No clubbing, cyanosis, or edema. NEURO: Cranial nerves II through XII grossly intact, no focal deficits. Able to move all four extremities equally. Strength 5/5 bilaterally. PSYCH: Alert and oriented x 3. SKIN: No concerning lesions. Objective Labs Result Diagrams: 11/15/21 09:00 11/15/21 09:00 Labs: Laboratory Results - last 24 hr 11/15/21 11/15/21 11/15/21 09:00 09:00 09:50 WBC 5.0 RBC 5.08 Hgb 14.4 Hct 42.7 MCV 84.2 MCH 28.4 MCHC 33.7 RDW 13.6 Plt Count 274 Neut % (Auto) 54.4 Lymph % (Auto) 36.3 Villalba % (Auto) 6.9 Eos % (Auto) 1.4 L Baso % (Auto) 1.0 Neut # (Auto) 2700 Lymph # (Auto) 1800 Villalba # (Auto) 300 Eos # (Auto) 100 Baso # (Auto) 0 Sodium 140 Potassium 3.9 Chloride 103 Carbon Dioxide 29 BUN 15 Creatinine 0.64 Estimated GFR > 60.0 BUN/Creatinine Ratio 23.4 H Glucose 96 Calcium 10.0 Total Bilirubin 1.0 AST 24 ALT 13 Alkaline Phosphatase 85 Total Protein 8.1 Albumin 5.1 H Globulin 3.0 Albumin/Globulin Ratio 1.7 U Opiates 300ng/mL cut Negative Ur Oxycodone Screen Negative Urine Methadone Screen Negative Ur Barbiturates Screen Negative U Tricyclic Antidepress Negative Ur Phencyclidine Scrn Negative Ur Amphetamines Screen Negative U Methamphetamines Scrn Negative Ur MDMA Scrn (Ecstasy) Negative U Benzodiazepines Scrn Negative Urine Cocaine Screen Negative U Marijuana (THC) Screen Negative SARS-CoV-2 (PCR) 11/15/21 14:15 WBC RBC Hgb Hct MCV MCH MCHC RDW Plt Count Neut % (Auto) Lymph % (Auto) Villalba % (Auto) Eos % (Auto) Baso % (Auto) Neut # (Auto) Lymph # (Auto) Villalba # (Auto) Eos # (Auto) Baso # (Auto) Sodium Potassium Chloride Carbon Dioxide BUN Creatinine Estimated GFR BUN/Creatinine Ratio Glucose Calcium Total Bilirubin AST ALT Alkaline Phosphatase Total Protein Albumin Globulin Albumin/Globulin Ratio U Opiates 300ng/mL cut Ur Oxycodone Screen Urine Methadone Screen Ur Barbiturates Screen U Tricyclic Antidepress Ur Phencyclidine Scrn Ur Amphetamines Screen U Methamphetamines Scrn Ur MDMA Scrn (Ecstasy) U Benzodiazepines Scrn Urine Cocaine Screen U Marijuana (THC) Screen SARS-CoV-2 (PCR) Negative Assessment & Plan Assessment & Plan narrative: 1. 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 Plan: Observation overnight. Echo. Coag studies. Follow-up with neurology after discharge. 2. Chronic migraine without aura, inactive Plan: Home ubrelvy as needed. 3. Thyroid abnormality, new Plan: Thyroid US as outpatient. Code: Full COVID: negative FEN: Regular diet, hep-lock IV DVT: SCDs Dispo: Anticipate discharge to home tomorrow. Quality VTE Deep Vein Thrombosis/Pulmonary Embolism Present on Admission: No
--- NOTE | 2021-11-15 18:05 | DI.ECHO.S_ITS ---
[facility]---------+ [facility] +---------+ : : [address] [place] : : : : [id number] : : : : Phone: [phone] Echocardiogram Report + + :Name: RACHEL RAMIREZ Study Date: 11/16/2021 Height: 64 in : :[facility] ReadingLocation: Weight: 150 lb : : Gender: Female BSA: 1.7 m2 : :: 1990 Age: 31 yrs BP: 108/75 mmHg: :Reason For Study: Stroke - like symptoms : :Ordering Physician: KEVIN, : :JOHN Performed By: Daniel Brown : :Referring: JOHN BROWN : + + Interpretation Summary 1) Normal left ventricular thickness, size, wall motion, and systolic function (EF 60-65%). 2) Normal right ventricular size and function. 3) No significant valvular abnormalities. 4) Doppler interrogation and injection of saline echo contrast shows no evidence for an interatrial shunt. 5) No prior Echo available for comparison. Procedure: A two-dimensional transthoracic echocardiogram with color flow and Doppler was performed. The study quality was technically adequate. There is no prior echocardiogram noted for this patient. The patient was in normal sinus rhythm during the exam. Left Ventricle: The left ventricle is normal in size and wall thickness. Left ventricular systolic function appears normal without focal wall motion abnormalities. The ejection fraction is estimated to be 60-65%. Right Ventricle: Borderline right ventricular enlargement. The right ventricular systolic function is normal. Atria: The left atrial size is normal. The right atrium is mildly dilated. Bubble studies slides 67 & 68. No evidence of shunt. Doppler interrogation and injection of saline echo contrast shows no evidence for an interatrial shunt. Mitral Valve: The mitral valve leaflets appear borderline thickened, but open well. There is no mitral regurgitation noted. Aortic Valve: The aortic valve is trileaflet. The aortic valve opens well. There is no aortic valve stenosis. No aortic regurgitation is present. Tricuspid Valve: The tricuspid valve is normal. There is a trace or physiologic amount of tricuspid regurgitation. The right ventricular systolic pressure is estimated to be at least 15 mmHg based on an estimated right atrial pressure of 3 mm Hg. Pulmonic Valve: The pulmonic valve leaflets are thin and pliable; valve motion is normal. There is mild pulmonic regurgitation. Great Vessels: The aortic root is normal size. The ascending aorta is normal in size. The aortic arch is normal in size. The IVC is of normal diameter and collapses greater than 50% with a sniff. This suggests a low right atrial pressure of 3 mm Hg. Pericardium/ Pleura There is no pericardial effusion. There is no pleural effusion. MMode/2D Measurements & Calculations LVIDd: 4.9 cm LVOT diam: 2.0 cm LVIDs: 3.0 cm Ao root diam: 2.8 cm FS: 37.6 % asc Aorta Diam: 2.7 cm IVSd: 0.64 cm Ao Arch Diam (Prox Trans): 2.6 cm LVPWd: 0.87 cm LV young. diameter/BSA (cm/m^2): 2.8 LV sys. diameter/BSA (cm/m^2): 1.8 LA A2 area: 15.7 cm2 RA long axis: 4.8 cm LA A4 area: 17.2 cm2 RA area: 17.4 cm2 LA length (vol): 4.9 cm RA vol: 53.5 ml LA vol: 47.1 ml RA : 30.9 ml/m2 LA vol index: 27.2 ml/m2 RVD1 (basal): 4.0 cm TAPSE: 2.6 cm Doppler Measurements & Calculations Ao V2 max: 139.6 cm/sec LVOT Max Reji: 113.2 cm/sec Ao V2 mean: 94.3 cm/sec LV V1 max P.1 mmHg Ao max P.8 mmHg LV V1 VTI: 23.4 cm Ao mean P.9 mmHg KRISTA(I,D): 2.7 cm2 Ao V2 VTI: 27.2 cm KRISTA(V,D): 2.5 cm2 sev ratio: 0.86 KRISTA indexed to BSA (cm^2/m^2): 1.5 MV E max reji: 84.9 cm/sec TR max reji: 176.3 cm/sec MV A max reji: 45.3 cm/sec TR max P.4 mmHg MV E/A: 1.9 Med Peak E' Reji: 12.1 cm/sec E/E' med: 7.0 Lat Peak E' Reji: 18.6 cm/sec E/E' lat: 4.6 E/e' average: 5.8 MV dec time: 0.21 sec SV(LVOT): 72.8 ml Reading Physician:03:56 PM
[2021-11-16] VITALS (8 sets, daily range): BP systolic 101–110; BP diastolic 52–73; PULSE 58–59; RESP 16–18; TEMP 36.3–36.7; O2SAT 95–100
[2021-11-16 06:18] LABS: Add Manual Diff / Slide Review NO; Basophils Absolute Auto 0 /uL (0-100); Basophils Percent Auto 0.8 % (0-2); Eosinophils Absolute Auto 100 /uL (0-450); Eosinophils Percent Auto 2.4 % (2-4); Lymphocytes Absolute Auto 1900 /uL (1100-4500); Lymphocytes Percent Auto 42.3 % (25-40); Mean Corpuscular HGB Conc 33.3 % (30-36); Mean Corpuscular Hemoglobin 28.3 PG (26-34); Monocytes Absolute Auto 300 /uL (0-900); Neutrophils Absolute Auto 2100 /uL (1500-7000); Neutrophils Percent Auto 47.5 % (50-75); Platelet Count 242 X10^3/uL (150-400); Red Cell Distribution Width 13.6 % (11.6-14.8); White Blood Cell Count 4.5 X10^3/uL (4.5-11.0)
[2021-11-16 06:38] LABS: INR 1.1 (0.9-1.3); Prothrombin Time 12.1 SECONDS (10.1-12.7)
[2021-11-16 06:40] LABS: PTT Partial Thromboplastin Tim 36 SECONDS (26.4-36.2)
[2021-11-16 06:46] LABS: BUN Creatinine Ratio 19.7 (6-22); Blood Urea Nitrogen 12 mg/dL (7-17); Calcium 9.6 mg/dL (8.4-10.2); Carbon Dioxide 27 mmol/L (22-32); Chloride 107 mmol/L (98-107); Estimated Glomerular Filt Rate > 60.0 mL/min (>60); Glucose 99 mg/dL (70-100); HEMOLYSIS < 15 (0-50); Sodium 138 mmol/L (137-145)
--- NOTE | 2021-11-16 08:38 | P.DS_ITS ---
History of Present Illness History of Present Illness Date Patient Seen: 11/16/21 Time Patient Seen: 08:38 Chief complaint: botox for migraines, weakness in left leg Narrative: 31 year old female admitted from the ED for observation for left sided weakness and numbness x 2 days. Medical history is significant for migraines that started after she had a concussion in 2019. She had a protracted course of post-concussion syndrome and was refractory to the usual treatments for migraines. Eventually she was referred to neurology and has been receiving botox for the past year with some success. 7 days ago, she had her fourth botox injection. Did not have immediate symptoms, but 2 days ago, started to feel tingly in her left leg and needed to use her arms to lift her left leg over her right leg to cross it. Vital signs upon presentation to the ED included a Temperature 98.2?, pulse 80, respirations 18, blood pressure 110/69, and O2 saturation 99% on room air. Lab workup was unremarkable. NIH stroke scale 3. CT of the head, CTA of the head/ neck, MRI of the head/ brain all negative. Incidentally, a non-specific low- attentuation focus in the right lobe of the thyroid was noticed on CT angiogram and follow-up thyroid ultrasound recommended in the outpatient setting. Physical exam findings significant for left-sided weakness. Neurology was consulted and advised admission for observation with echo to follow and hypercoagulability workup. Upon interview this evening, patient is completely asymptomatic and her full faculties have been restored. She denies any further weakness or numbness. Denies that she ever had a headache prior to the onset of the weakness. She is otherwise feeling at her baseline. Discharge Providers Provider Date of admission: 11/15/21 15:15 Discharge Date: 11/16/21 Primary care physician: Susana Bejarano MD Consults: 11/15/21 18:03 Consult to Discharge Planning Routine Comment: Consult to Occupational Therapy Evaluate & Treat Comment: Physician Instructions: Evaluate and treat Consult to Physical Therapy Evaluate & Treat Comment: Physician Instructions: Evaluate and Treat Consult to Speech Therapy Evaluate & Treat Comment: Physician Instructions: Evaluate and treat Discharge provider: Susana Bejarano MD Summary Hospital Course Discharge Diagnosis: 1.? 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 Chronic migraine without aura, inactive 3.? Thyroid abnormality, new Hospital Course: Uneventful. Patient had no further weakness and had fully recovered her strength and sensation by the time that she was transferred to the floor. Echo and coagulation studies have been completed and results are pending. On day of discharge, patient is afebrile with stable vital signs throughout. She will be discharged to home on usual medications and stroke precautions for return. Outpatient follow-up with Neurology. Patient will also complete outpatient thyroid ultrasound secondary to incidental thyroid abnormality noted during CT angiogram. Exam Vital Signs (past 8 hours): - 11/16/21 02:00 11/16/21 05:36 11/16/21 06:00 Temperature 97.4 F L Pulse Rate 59 L Respiratory Rate 16 Blood Pressure 101/62 Pulse Oximetry 99 97 99 11/16/21 07:30 Temperature 98.0 F Pulse Rate 58 L Respiratory Rate 18 Blood Pressure 107/63 Pulse Oximetry 100 Oxygen Delivery Method Room Air Oxygen Flow Rate 0 Narrative Exam Narrative: GENERAL:? Alert and oriented, appearing stated age and in no acute distress. HEENT:? Head normocephalic/atraumatic.? Extraocular movements intact. LUNGS:? Clear to ausculation bilaterally, no wheezes, rhonchi or rales. CV:? Normal S1 and S2 with regular rate and rhythm, no audible murmurs, rubs or gallops. ABDOMEN:? Soft, non-tender, non-distended, no organomegaly.? Positive bowel sounds. EXTREMITIES:? No clubbing, cyanosis, or edema. NEURO:? Cranial nerves II through XII grossly intact, no focal deficits.? Able to move all four extremities equally.? Strength 5/5 bilaterally. PSYCH:? Alert and oriented x 3. SKIN:? No concerning lesions. Objective Labs Result Diagrams: 11/16/21 06:04 11/16/21 06:04 Labs: Laboratory Results - last 24 hr 11/15/21 11/15/21 11/15/21 09:00 09:00 09:50 WBC 5.0 RBC 5.08 Hgb 14.4 Hct 42.7 MCV 84.2 MCH 28.4 MCHC 33.7 RDW 13.6 Plt Count 274 Neut % (Auto) 54.4 Lymph % (Auto) 36.3 Thurston % (Auto) 6.9 Eos % (Auto) 1.4 L Baso % (Auto) 1.0 Neut # (Auto) 2700 Lymph # (Auto) 1800 Thurston # (Auto) 300 Eos # (Auto) 100 Baso # (Auto) 0 PT INR APTT Sodium 140 Potassium 3.9 Chloride 103 Carbon Dioxide 29 BUN 15 Creatinine 0.64 Estimated GFR > 60.0 BUN/Creatinine Ratio 23.4 H Glucose 96 Calcium 10.0 Total Bilirubin 1.0 AST 24 ALT 13 Alkaline Phosphatase 85 Total Protein 8.1 Albumin 5.1 H Globulin 3.0 Albumin/Globulin Ratio 1.7 U Opiates 300ng/mL cut Negative Ur Oxycodone Screen Negative Urine Methadone Screen Negative Ur Barbiturates Screen Negative U Tricyclic Antidepress Negative Ur Phencyclidine Scrn Negative Ur Amphetamines Screen Negative U Methamphetamines Scrn Negative Ur MDMA Scrn (Ecstasy) Negative U Benzodiazepines Scrn Negative Urine Cocaine Screen Negative U Marijuana (THC) Screen Negative SARS-CoV-2 (PCR) 11/15/21 11/16/21 11/16/21 14:15 06:04 06:04 WBC 4.5 RBC 4.60 Hgb 13.0 Hct 39.0 MCV 85.0 MCH 28.3 MCHC 33.3 RDW 13.6 Plt Count 242 Neut % (Auto) 47.5 L Lymph % (Auto) 42.3 H Thurston % (Auto) 7.0 Eos % (Auto) 2.4 Baso % (Auto) 0.8 Neut # (Auto) 2100 Lymph # (Auto) 1900 Thurston # (Auto) 300 Eos # (Auto) 100 Baso # (Auto) 0 PT 12.1 INR 1.1 APTT 36 Sodium Potassium Chloride Carbon Dioxide BUN Creatinine Estimated GFR BUN/Creatinine Ratio Glucose Calcium Total Bilirubin AST ALT Alkaline Phosphatase Total Protein Albumin Globulin Albumin/Globulin Ratio U Opiates 300ng/mL cut Ur Oxycodone Screen Urine Methadone Screen Ur Barbiturates Screen U Tricyclic Antidepress Ur Phencyclidine Scrn Ur Amphetamines Screen U Methamphetamines Scrn Ur MDMA Scrn (Ecstasy) U Benzodiazepines Scrn Urine Cocaine Screen U Marijuana (THC) Screen SARS-CoV-2 (PCR) Negative 11/16/21 06:04 WBC RBC Hgb Hct MCV MCH MCHC RDW Plt Count Neut % (Auto) Lymph % (Auto) Thurston % (Auto) Eos % (Auto) Baso % (Auto) Neut # (Auto) Lymph # (Auto) Thurston # (Auto) Eos # (Auto) Baso # (Auto) PT INR APTT Sodium 138 Potassium 4.0 Chloride 107 Carbon Dioxide 27 BUN 12 Creatinine 0.61 Estimated GFR > 60.0 BUN/Creatinine Ratio 19.7 Glucose 99 Calcium 9.6 Total Bilirubin AST ALT Alkaline Phosphatase Total Protein Albumin Globulin Albumin/Globulin Ratio U Opiates 300ng/mL cut Ur Oxycodone Screen Urine Methadone Screen Ur Barbiturates Screen U Tricyclic Antidepress Ur Phencyclidine Scrn Ur Amphetamines Screen U Methamphetamines Scrn Ur MDMA Scrn (Ecstasy) U Benzodiazepines Scrn Urine Cocaine Screen U Marijuana (THC) Screen SARS-CoV-2 (PCR) FORMERLY [facility], [facility] Medical History Dyspareunia Migraines Routine screening for STI (sexually transmitted infection) Surgical History History of third molar tooth extraction (~2005) Status post laparoscopy (04/02/19) Status post tonsillectomy and adenoidectomy (~2006) Social History household members: spouse Smoking Status: Never smoker alcohol intake: current Discharge Plan Discharge Plan Patient Disposition: Home Provider Discharge Comment: Follow up with neurology upon discharge. Discharge orders & Medications Prescriptions: Continued Ubrelvy 100 mg tablet 100 mg PO PRN PRN (Reason: Headache) 0RF Label Comments: TAKE ONE TABLET BY MOUTH DAILY NEEDED Follow up/Referrals: Susana Bejarano MD [Primary Care Provider] - Diet/Activity/Treatments Diet: Diet as Tolerated Discharge Data Primary Care Provider: Susana Bejarano Attending Provider: Susana Bejarano Quality VTE Deep Vein Thrombosis/Pulmonary Embolism Present on Admission: No
--- NOTE | 2021-11-16 08:52 | OT.IPNOTE ---
Attempted OT eval with pt. Pt feels that she is back to baseline, has been independent in the room. Discharge OT eval orders.
--- NOTE | 2021-11-16 10:58 | CM.DANOTE ---
DCP Brief Assessment Note Patient is a 31 yo female who was admitted for migraines and weakness. Pt has REG [employer] for insurance and her PCP is Dr. Susana Bejarano. EMR was reviewed. Per , pt has a hx of migraines since her concussion in 2020 and established with a Neurologist who provides botox to pt every 3 months with some success. Pt was admitted for observation per Neurologist consult and pt is back to baseline and having an Echo this morning around 1030 and pending results likely stable for d/c home with no needs and outpt f/u with PCP and neurologist. No bedside assessment completed at this time due to triage needs and no identified barriers to discharge. Pt's spouse able to provide assist if needed and transport home. Pt works and drives at baseline and independent with ADL's. Per OT, pt at baseline and no OT needs and discharged from service. Plan: SW to follow for plan of d/c home this afternoon via family POV and no SW needs at this time. JEANINE Schmitt
--- NOTE | 2021-11-16 11:48 | PT-IP ANOTE ---
reviewed EMR and checked with pt. pt stated that she is feeling better and back to PLOF and is mobilizing by herself in her room and refused PT. stated that she does not need PT and is moving independently. will d/c PT eval order per pt's request.
--- NOTE | 2021-11-16 13:35 | PC.NURSE ---
Pt had ECHO this morning. Orders for D/C recieved. Tele discontinued, SL removed w/o incidence... Home instructions given w/understanding. Escorted by staff to waiting vehicle.
[2021-11-18 14:21] LABS: Cardiolipin Ab IgG <9 GPL U/mL (0-14); Cardiolipin Ab IgM <9 MPL U/mL (0-12)
[2021-11-18 18:35] LABS: Antithrombin Activity 80 % (75-135); Antithrombin Antigen 89 % (72-124); Dilute Russell Viper Venom 37.2 sec (0.0-47.0); Lupus Reflex Interpretation Comment: (.); PTT-LA 47.8 sec (0.0-51.9); Protein C-Functional 123 % (73-180); Protein S-Functional 81 % (63-140)
[2021-11-26 12:31] LABS: Cardiolipin IgA NEGATIVE
== END 2021-11-16 12:30 | disposition home or self-care (01) ==
LOC: ED 14:41 → AC 15:15
PROVIDERS: Admitting Provider Student in an Organized Health Care Education/Training Program; Emergency Provider Emergency Medicine; PCP Student in an Organized Health Care Education/Training Program; Referring Provider Emergency Medicine; Visit Provider Student in an Organized Health Care Education/Training Program
DX: R53.1 Weakness (principal); R29.703 NIHSS score 3; R20.0 Anesthesia of skin; G43.009 Migraine without aura, not intractable, without status migrainosus; R94.6 Abnormal results of thyroid function studies; Z20.822 Contact with and (suspected) exposure to COVID-19
CPT/HCPCS: 36415; 70450; 70496; 70498; 70551; 80048; 80053; 80305; 81003; 81241; 82962; 83520; 85025; 85300; 85301; 85303; 85306; 85598; 85610; 85613; 85730; 86147; 86148; 87635; 93005; 93010; 93306; 94760; 96361; 96374; 96375; 99285; C9803; G0378; J1885; J2765; Q9967

== ENCOUNTER → 2021-11-26 07:42 | Outpatient (CLI) | payer OTHER, SELFPAY ==
[2021-11-15 16:50] VITALS: BMI 25.7
--- NOTE | 2021-11-26 | DI.US.S_ITS ---
PROCEDURE: US THYROID INDICATIONS: RIGHT NODULE ON CT TECHNIQUE: Real-time scanning was performed of the thyroid gland, with image documentation. COMPARISON: [facility], CT, CT ANGIO HEAD AND NECK, 11/15/2021, 8:54. FINDINGS: Right: Thyroid lobe measures 5.1 x 1.3 x 2.1 cm, and is predominantly homogeneous in echotexture. Left: Thyroid lobe measures 3.5 x 0.9 x 1.2 cm, and is predominantly homogenous in echotexture. Isthmus: 3 mm thick. IMPRESSION: No suspicious abnormality. ACR TI-RADS definitions and recommendations: TI-RADS 1 (benign): 0 points. FNA not needed. TI-RADS 2 (not suspicious): 2 points. FNA not needed. TI-RADS 3 (mildly suspicious): 3 points. * FNA if 2.5 cm or larger, follow up if 1.5 cm or larger (at 1, 3, and 5 years). TI-RADS 4 (moderately suspicious): 4-6 points. * FNA if 1.5 cm or larger, follow up if 1 cm or larger (at 1, 2, 3, and 5 years). TI-RADS 5 (highly suspicious): 7 points or more. * FNA if 1 cm or larger, follow up if 0.5 cm or larger (every year for 5 years). Dictated by: Juan Manuel Pardo M.D. on 11/26/2021 at 9:32 Approved by: Juan Manuel Pardo M.D. on 11/26/2021 at 9:35
== END ==
PROVIDERS: PCP Student in an Organized Health Care Education/Training Program; Referring Provider Student in an Organized Health Care Education/Training Program; Visit Provider Student in an Organized Health Care Education/Training Program
DX: E04.1 Nontoxic single thyroid nodule (principal)
CPT/HCPCS: 76536

== ENCOUNTER → 2022-07-30 07:39 | Outpatient (CLI) | payer OTHER, SELFPAY ==
[2021-11-15 16:50] VITALS: BMI 25.7
[2022-07-30 09:09] LABS: Glucose 100 mg/dL (70-100)
[2022-07-31 13:42] LABS: Insulin Level Total 10.2 uIU/mL (2.6-24.9)
== END ==
PROVIDERS: PCP Student in an Organized Health Care Education/Training Program; Referring Provider Obstetrics & Gynecology; Visit Provider Obstetrics & Gynecology
DX: E28.2 Polycystic ovarian syndrome (principal)
CPT/HCPCS: 36415; 82947; 83525

== ENCOUNTER → 2023-01-09 09:25 | Outpatient (CLI) | payer OTHER, SELFPAY ==
[2021-11-15 16:50] VITALS: BMI 25.7
--- NOTE | 2023-01-09 09:27 | DI.MG.S_ITS ---
BILATERAL DIGITAL DIAGNOSTIC MAMMOGRAM 3D/2D: 01/09/2023 CLINICAL: Left breast skin changes. Comparison is made to exams dated: 03/14/2021 ultrasound, 03/14/2021 ultrasound, and 03/14/2021 mammogram - [facility]. Both breasts are heterogeneously dense, which may obscure small masses (category c / 51-75% glandular tissue). No significant masses, calcifications, or other findings are seen in either breast. No abnormality which corresponds with the area of pain is identified. No abnormality which corresponds with the palpable abnormality is seen. IMPRESSION: INCOMPLETE: NEEDS ADDITIONAL IMAGING EVALUATION There is no abnormality seen in the left breast to correspond with the area of clinical concern, palpable abnormality, pain, and skin retraction in the lateral aspect, however, ultrasound is recommended. Based on the Tyrer Cuzick model (a risk assessment model) the patient's lifetime risk is 14.5% and her 10 year risk is 0.7%. According to the ACR, ACS, and NCCN guidelines, an annual breast MRI exam along with mammogram is recommended if the patient's lifetime risk is 20% or greater. This exam was interpreted at Station ID: [id number]. NOTE: For mammograms, a report in lay terms will be sent to the patient. Approximately 15% of breast malignancies will not be visualized mammographically. In the management of a palpable breast mass, a negative mammogram must not discourage biopsy of a clinically suspicious lesion. Electronically Signed By: Jaziel Bell M.D. acr/:01/09/2023 10:19:31 ACR BI-RADS Category 0: Incomplete [id number]
--- NOTE | 2023-01-09 09:27 | DI.US.S_ITS ---
ULTRASOUND OF LEFT BREAST: 01/09/2023 CLINICAL: Focal left breast pain. Comparison is made to exams dated: 01/09/2023 mammogram, 03/14/2021 ultrasound, 03/14/2021 ultrasound, and 03/14/2021 mammogram - [facility]. Color flow, real-time, and continuous wave Doppler ultrasound of the left breast were performed. No abnormality on ultrasound is seen corresponding to the areas of concern. IMPRESSION: NEGATIVE There is no sonographic evidence of malignancy. There is no abnormality seen in the left breast to correspond with the pain and skin retraction, however, clinical followup is recommended. The patient's symptoms have resolved at this time, however if they recur, the patient was advised to return for further repeat imaging and/or follow-up with her doctor. This exam was interpreted at Station ID: [id number]. Electronically Signed By: Jaziel Bell M.D. acr/:01/09/2023 11:15:39 letter sent: Clinical Evaluation Ultrasound BI-RADS: 1 Negative
== END ==
PROVIDERS: PCP Family Medicine; Referring Provider Obstetrics & Gynecology; Visit Provider Obstetrics & Gynecology
DX: N60.11 Diffuse cystic mastopathy of right breast; N60.12 Diffuse cystic mastopathy of left breast; R92.2 Inconclusive mammogram; N63.20 Unspecified lump in the left breast, unspecified quadrant
CPT/HCPCS: 76642; 77066; G0279

== ENCOUNTER → 2023-09-12 16:50 | Outpatient (CLI) | payer OTHER, SELFPAY ==
[2021-11-15 16:50] VITALS: BMI 25.7
--- NOTE | 2023-09-12 | DI.RAD.S_ITS ---
PROCEDURE: XR WRIST LT MIN 3V INDICATIONS: left wrist pain s/p injury TECHNIQUE: 4 views of the wrist were acquired. COMPARISON: None. FINDINGS: Bones: No fractures or dislocations. No suspicious bony lesions. Soft tissues: No suspicious soft tissue calcifications. IMPRESSION: No acute bony abnormality. If clinical symptoms persist or clinical suspicion for pathology is high, a repeat examination in 7-10 days, or advanced imaging such as CT or MRI is suggested for further evaluation. Dictated by: Bg Miner M.D. on 09/14/2023 at 17:29 Approved by: Bg Miner M.D. on 09/14/2023 at 17:29
== END ==
PROVIDERS: PCP Family Medicine; Referring Provider Registered Nurse; Visit Provider Registered Nurse
DX: M25.532 Pain in left wrist (principal)
CPT/HCPCS: 73110

== ENCOUNTER → 2023-09-30 08:48 | Outpatient (CLI) | payer OTHER, SELFPAY ==
[2021-11-15 16:50] VITALS: BMI 25.7
--- NOTE | 2023-09-30 08:50 | DI.MRI.S_ITS ---
PROCEDURE: MR WRIST LT WO CON INDICATIONS: Pain in left wrist TECHNIQUE: Noncontrast coronal proton density fast spin echo and T2 fast spin echo with fat saturation; coronal 3-D gradient echo, axial T1 spin echo and T2 fast spin echo with fat saturation, sagittal T1 spin echo through the wrist. COMPARISON: [facility], CR, XR WRIST LT MIN 3V, 09/12/2023, 18:01. FINDINGS: Image quality: Excellent. Bones and cartilage: The carpal bones are normally aligned. No bone marrow contusions or fractures. No evidence for avascular necrosis. Carpal ligaments: The scapholunate and lunotriquetral ligaments appear intact. On sagittal images, the pisohamate ligament appears intact. Triangular fibrocartilage complex: The triangular fibrocartilage appears intact. Tendons and soft tissues: The median nerve appears mildly thickened within the carpal tunnel. There is mild volar bowing of the flexor retinaculum. The flexor tendons appear to be intact. The ulnar nerve appears normal within Guyon's canal. All six extensor tendon compartments demonstrate normal morphology, without pathologic tendon sheath fluid. No soft tissue ganglion cysts. IMPRESSION: 1. No acute trabecular bone injury. No significant ligament or tendon injury is seen. 2. Mild thickening of the median nerve and mild volar bowing of the flexor retinaculum are nonspecific but can be seen in the setting of median neuritis/carpal tunnel syndrome. Recommend correlation with neurologic exam findings. Approved by: Travis Cortes M.D. on 09/30/2023 at 15:14
== END ==
PROVIDERS: PCP Family Medicine; Referring Provider Registered Nurse; Visit Provider Registered Nurse
DX: S69.92XD Unspecified injury of left wrist, hand and finger(s), subsequent encounter (principal); M25.532 Pain in left wrist
CPT/HCPCS: 73221

== ENCOUNTER → 2024-02-13 07:29 | Outpatient (CLI) | payer OTHER, SELFPAY ==
[2021-11-15 16:50] VITALS: BMI 25.7
[2024-02-13 08:24] LABS: Influenza A - CEPHEID Flu A NEGATIVE (NEGATIVE); Influenza B - CEPHEID Flu B NEGATIVE (NEGATIVE); Respiratory Syncytial Virus Negative (Negative)
[2024-02-13 10:34] LABS: COVID-19 CEPHEID 4-PLEX PCR Negative (Negative)
== END ==
PROVIDERS: PCP Family Medicine; Visit Provider Physician Assistant Medical
DX: R50.9 Fever, unspecified (principal)
CPT/HCPCS: 0241U

== ENCOUNTER → 2024-02-25 10:09 | Outpatient (CLI) | payer OTHER, SELFPAY ==
[2021-11-15 16:50] VITALS: BMI 25.7
--- NOTE | 2024-02-25 10:12 | DI.RAD.S_ITS ---
PROCEDURE: XR CHEST 2V INDICATIONS: COUGH TECHNIQUE: 2 views of the chest were acquired. COMPARISON: [facility], , CHEST 2 VIEW, 11/11/2007, 14:56. FINDINGS: Surgical changes and devices: None. Lungs and pleura: Lungs are clear. No pleural effusions or pneumothorax. Mediastinum: Mediastinal contours are normal. Heart size is normal. Bones and chest wall: No suspicious bony abnormalities. Soft tissues appear unremarkable. IMPRESSION: No acute cardiopulmonary abnormality is seen. Approved by: Philip Arechiga M.D. on 02/25/2024 at 19:13
== END ==
PROVIDERS: PCP Family Medicine; Referring Provider Family Medicine; Visit Provider Family Medicine
DX: R05.1 Acute cough (principal)
CPT/HCPCS: 71046

== ENCOUNTER → 2025-10-05 09:54 | Outpatient (CLI) | payer OTHER, SELFPAY ==
[2021-11-15 16:50] VITALS: BMI 25.7
[2025-10-05 10:21] LABS: Add Manual Diff / Slide Review NO; Hematocrit 39.9 % (36-46); Hemoglobin 13.5 g/dL (12.0-16.0); Lymphocytes Absolute Auto 1700 /uL (1100-4500); Mean Corpuscular HGB Conc 33.8 % (30-36); Mean Corpuscular Hemoglobin 28.2 PG (26-34); Mean Corpuscular Volume 83.3 fL (80-100); Platelet Count 265 X10^3/uL (150-400)
[2025-10-05 10:41] LABS: Alanine Aminotransferase 14 IU/L (<35); Albumin 4.3 g/dL (3.5-5.0); Albumin Globulin Ratio 1.6 (1.0-2.8); Alkaline Phosphatase 64 U/L (38-126); Blood Urea Nitrogen 14 mg/dL (7-17); Calcium 9.4 mg/dL (8.4-10.2); Carbon Dioxide 24 mmol/L (22-32); Chloride 105 mmol/L (98-107); Estimated Glomerular Filt Rate > 60 mL/min (>60); Globulin 2.7 g/dL (1.7-4.1); Glucose 93 mg/dL (70-99); HEMOLYSIS < 15 (0-50); Potassium 4.1 mmol/L (3.4-5.1); Sodium 137 mmol/L (137-145); Total Protein 7.0 g/dL (6.3-8.2)
[2025-10-05 10:57] LABS: Free T4, Direct Thyroxine 0.85 ng/dL (0.78-2.19)
[2025-10-05 11:11] LABS: Thyroid Stimulating Hormone 2.28 uIU/mL (0.47-4.68)
[2025-10-05 11:31] LABS: Vitamin B12 344 pg/mL (239-931)
== END ==
PROVIDERS: PCP Family Medicine; Visit Provider Physician Assistant
DX: G43.709 Chronic migraine without aura, not intractable, without status migrainosus (principal)
CPT/HCPCS: 36415; 80053; 82607; 83921; 84439; 84443; 85025